=== PATIENT | female | born 1980 | race Caucasian/White ===

== ENCOUNTER 2017-11-24 20:44 | Emergency (ER) | payer OTHER, MEDICAID, SELFPAY ==
[2017-11-24 20:58] VITALS: BP 146/100; PULSE 84; RESP 20; TEMP 36.2; O2SAT 97; BMI 30.2
--- NOTE | 2017-11-24 21:05 | PC.NURSE ---
Pt encouraged to call for needs and / or change in condition.
[2017-11-24 23:24] VITALS: BP 102/59; PULSE 64; RESP 21; O2SAT 98
--- NOTE | 2017-11-24 23:26 | ED.UPPEXIN ---
HPI - Extremity Injury (Upper) General Chief Complaint: Chest Pain Stated Complaint: CHEST PAIN, DIFFICULTY BREATHING, ARM PAIN Time Seen by Provider: 11/24/17 23:07 Source: patient and RN notes reviewed Limitations: no limitations History of Present Illness HPI narrative: Patient is a 36-year-old female who presents with left arm pain. She says it has been ongoing for a year. She said she had ultrasound on it she denies any injury. Nobody can figure out what it is and she would like to know what is happening with her arm. It is not any worse today. She sometimes has chest pain and sometimes shortness of breath but does not have any now. Her arm hurts when she moves it. She has no numbness or tingling in her fingers. MD complaint: injury to: arm Other injuries: none Related Data Home Medications Medication Instructions Recorded Confirmed fluoxetine 20 mg PO QDAY #0 10/06/12 Previous Rx's Medication Instructions Recorded hydrocodone-acetaminophen 0 tab PO Q6HP PRN #15 tab 02/27/16 doxycycline hyclate 100 mg PO Q12H #20 cap 04/27/16 Review of Systems Review of Systems All systems reviewed & are unremarkable except as noted in HPI and below Musculoskeletal Reports as per HPI, Denies atrophy, Denies deformity, Denies muscle weakness and Denies numbness Neurologic Denies numbness [facility] Social History Smoking Status: Current every day smoker Exam Narrative Exam Narrative: GENERAL: Well-appearing, well-nourished and in no acute distress. HEENT: Head atraumatic,EOMI, pupils reactive CARDIOVASCULAR: Regular rate and rhythm without murmurs, rubs or gallops. RESPIRATORY: Breath sounds equal bilaterally, no wheezes rales or rhonchi. ABDOMEN: Soft, nontender. Normoactive bowel sounds all 4 quadrants. No guarding or rebound. EXTREMITIES: Normal range of motion, no clubbing or edema. Neurovascularly intact Left upper extremity no gross bony deformities no erythema no swelling no rashes. Neurovascularly intact NEUROLOGICAL: Alert and oriented x4.Normal gait and speech. Cranial nerves II through XII grossly intact. SKIN: Warm, dry, no laceration, no petechiae, no rashes or lesions. MDM - Extremity Injury (Upper) [facility] Narrative Medical decision making narrative: She has had chronic ongoing left arm pain at no evidence of any acute problems. Has no sign of infection deformity or swelling. Differential Diagnosis Differential diagnosis: Likely Colles' fracture ECG Data Attestation: I personally reviewed and interpreted this ECG as follows: Interpretation: Normal sinus rhythm rate [address] changes normal intervals Discharge Plan Departure Patient Disposition: Home, Self-Care Clinical Impression: Arm pain, left Discharge Date/Time: 11/24/17 23:40 Interventions: ED Discharge Assessment Last Done: 11/24/17 23:49 Instructions: DI for Arm Pain Activity Restrictions/Additional Instructions: *You have been diagnosed with left arm pain chronic *What to do: May require MRI or other testing outpatient *Take medications as directed -ibuprofen 600 mg every 6 hr if needed for pain *Follow up with your primary care provider in 2-3 days *Return to ER if you should have any new, worsening or concerning symptoms Prescriptions: No Action fluoxetine 20 MG capsule 20 mg PO QDAY Qty: 0 RF: 0 hydrocodone-acetaminophen 5 MG/325 MG tablet PO Q6HP PRNQty: 15 RF: 0 doxycycline hyclate 100 MG capsule 100 mg PO Q12H Qty: 20 RF: 0 Referrals: Sil Espinosa MD [Primary Care Provider] -
[2017-11-24] MEDS: IBUPROFEN 400 MG TABLET 800 MG PO (23:30)
--- NOTE | 2017-11-24 23:30 | ED_ITS ---
HPI - Extremity Injury (Upper) General Chief Complaint: Chest Pain Stated Complaint: CHEST PAIN, DIFFICULTY BREATHING, ARM PAIN Time Seen by Provider: 11/24/17 23:07 Source: patient and RN notes reviewed Limitations: no limitations History of Present Illness HPI narrative: Patient is a 36-year-old female who presents with left arm pain. She says it has been ongoing for a year. She said she had ultrasound on it she denies any injury. Nobody can figure out what it is and she would like to know what is happening with her arm. It is not any worse today. She sometimes has chest pain and sometimes shortness of breath but does not have any now. Her arm hurts when she moves it. She has no numbness or tingling in her fingers. MD complaint: injury to: arm Other injuries: none Related Data Home Medications Medication Instructions Recorded Confirmed fluoxetine 20 mg PO QDAY #0 10/06/12 Previous Rx's Medication Instructions Recorded hydrocodone-acetaminophen 0 tab PO Q6HP PRN #15 tab 02/27/16 doxycycline hyclate 100 mg PO Q12H #20 cap 04/27/16 Review of Systems Review of Systems All systems reviewed & are unremarkable except as noted in HPI and below Musculoskeletal Reports as per HPI, Denies atrophy, Denies deformity, Denies muscle weakness and Denies numbness Neurologic Denies numbness [facility] Social History Smoking Status: Current every day smoker Exam Narrative Exam Narrative: GENERAL: Well-appearing, well-nourished and in no acute distress. HEENT: Head atraumatic,EOMI, pupils reactive CARDIOVASCULAR: Regular rate and rhythm without murmurs, rubs or gallops. RESPIRATORY: Breath sounds equal bilaterally, no wheezes rales or rhonchi. ABDOMEN: Soft, nontender. Normoactive bowel sounds all 4 quadrants. No guarding or rebound. EXTREMITIES: Normal range of motion, no clubbing or edema. Neurovascularly intact Left upper extremity no gross bony deformities no erythema no swelling no rashes. Neurovascularly intact NEUROLOGICAL: Alert and oriented x4.Normal gait and speech. Cranial nerves II through XII grossly intact. SKIN: Warm, dry, no laceration, no petechiae, no rashes or lesions. MDM - Extremity Injury (Upper) [facility] Narrative Medical decision making narrative: She has had chronic ongoing left arm pain at no evidence of any acute problems. Has no sign of infection deformity or swelling. Differential Diagnosis Differential diagnosis: Likely Colles' fracture ECG Data Attestation: I personally reviewed and interpreted this ECG as follows: Interpretation: Normal sinus rhythm rate [address] changes normal intervals Discharge Plan Departure Patient Disposition: Home, Self-Care Clinical Impression: Arm pain, left Discharge Date/Time: 11/24/17 23:40 Interventions: ED Discharge Assessment Last Done: 11/24/17 23:49 Instructions: DI for Arm Pain Activity Restrictions/Additional Instructions: *You have been diagnosed with left arm pain chronic *What to do: May require MRI or other testing outpatient *Take medications as directed -ibuprofen 600 mg every 6 hr if needed for pain *Follow up with your primary care provider in 2-3 days *Return to ER if you should have any new, worsening or concerning symptoms Prescriptions: No Action fluoxetine 20 MG capsule 20 mg PO QDAY Qty: 0 RF: 0 hydrocodone-acetaminophen 5 MG/325 MG tablet PO Q6HP PRNQty: 15 RF: 0 doxycycline hyclate 100 MG capsule 100 mg PO Q12H Qty: 20 RF: 0 Referrals: Sil Espinosa MD [Primary Care Provider] -
== END 2017-11-24 23:40 | disposition home or self-care (01) ==
PROVIDERS: Emergency Provider Emergency Medicine; PCP Internal Medicine
DX: M79.602 Pain in left arm (principal)
CPT/HCPCS: 93005; 99282; 99283

== ENCOUNTER 2018-12-04 09:41 | Emergency (ER) | payer OTHER, MEDICAID, SELFPAY ==
[2018-12-04 09:41] VITALS: BP 128/80; PULSE 88; RESP 18; TEMP 36.7; O2SAT 99
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
--- NOTE | 2018-12-04 10:11 | DI.RAD.S_ITS ---
PROCEDURE: XR CHEST 2V INDICATIONS: URI, coughing up small clots of blood. + smoker TECHNIQUE: 2 views of the chest were acquired. COMPARISON: [facility], , CHEST 1 VIEW, 10/06/2012, 17:51. FINDINGS: Surgical changes and devices: None. Lungs and pleura: No acute consolidation. Scattered subsegmental atelectasis and/or scarring. No pleural effusions or pneumothorax. Mediastinum: Mediastinal contours are normal. Heart size is normal. Bones and chest wall: No suspicious bony abnormalities. Soft tissues appear unremarkable. IMPRESSION: No acute disease Dictated by: Ricardo Petersen M.D. on 12/04/2018 at 10:26 Approved by: Ricardo Petersen M.D. on 12/04/2018 at 10:27
[2018-12-04 10:45] VITALS: BP 146/82; PULSE 78; RESP 18; O2SAT 96
== END 2018-12-04 10:46 | disposition home or self-care (01) ==
LOC: ED 10:40
PROVIDERS: Emergency Provider Emergency Medicine; PCP Internal Medicine
DX: J40 Bronchitis, not specified as acute or chronic (principal)
CPT/HCPCS: 71046; 99282; 99283

== ENCOUNTER → 2019-01-15 17:00 | Outpatient (CLI) | payer OTHER, MEDICAID, SELFPAY ==
--- NOTE | 2019-01-26 08:45 | PM.PFT.1 ---
Pulmonary Function Test Referral & Results Date Patient Seen: 01/15/19 Requesting provider: Sil Espinosa Results: The spirometry demonstrates an FVC of 3.29 L which is 88% of predicted. The FEV1 was measured at 2.59 L which is 84% of predicted. The FEV1/FVC ratio was 79 which is 94% of predicted. Following the administration of bronchodilator there was no appreciable change. Lung volumes show an SVC of 2.88 L which is 82% of predicted. The diffusing capacity was measured at 18.12 which is 74% of predicted. No hemoglobin value was provided, so no correction for potential anemia could be made, if appropriate. The maximum voluntary ventilation was reduced Interpretation: This study demonstrates perhaps very mild obstructive lung disease based on minimal reduction in FEV1 without evidence of benefit following bronchodilator administration There is also minimal reduction lung volumes suggesting minimal restrictive lung disease There is also mild reduction in diffusing capacity suggesting element disease the capillary alveolar level
== END ==
PROVIDERS: PCP Internal Medicine; Visit Provider Internal Medicine
DX: J45.40 Moderate persistent asthma, uncomplicated (principal)
CPT/HCPCS: 94060; 94726; 94729

== ENCOUNTER 2019-01-16 17:05 | Emergency (ER) | payer OTHER, MEDICAID, SELFPAY ==
[2019-01-16 17:17] VITALS: BP 118/81; PULSE 74; RESP 18; TEMP 37.6; O2SAT 98; BMI 31.8
--- NOTE | 2019-01-16 17:41 | PC.NURSE ---
breath sound clear thru out.
--- NOTE | 2019-01-16 18:19 | DI.RAD.S_ITS ---
PROCEDURE: XR CHEST 2V INDICATIONS: cough x months TECHNIQUE: 2 views of the chest were acquired. COMPARISON: [facility], [place], XR CHEST 2V, 12/04/2018, 10:12. FINDINGS: Surgical changes and devices: None. Lungs and pleura: Lungs are clear. No pleural effusions or pneumothorax. Mediastinum: Mediastinal contours are normal. Heart size is normal. Bones and chest wall: No suspicious bony abnormalities. Soft tissues appear unremarkable. IMPRESSION: No evidence acute pulmonary process. The Dictated by: Henry Aocsta M.D. on 01/16/2019 at 19:28 Approved by: Henry Acosta M.D. on 01/16/2019 at 19:29
[2019-01-16 18:26] VITALS: BP 94/45; PULSE 82; RESP 20; TEMP 36.9; O2SAT 97
--- NOTE | 2019-01-16 19:45 | ED.URI ---
HPI - URI/Sore Throat <FIOR Simmons - Last Filed: 01/16/19 19:52> General Chief Complaint: Upper Respiratory Symptoms Stated Complaint: cough, breathing issues Time Seen by Provider: 01/16/19 18:17 Source: patient Mode of arrival: ambulatory Limitations: no limitations History of Present Illness HPI Narrative: The patient is a 38-year-old female active smoker presents with a chief complaint of a productive cough for the past 3 weeks. She had pulmonary function test yesterday and has plans to follow up with a senior radiation protection technician. She denies any fevers nausea vomiting or diarrhea. She states she has been wheezing and using inhaler. She is concerned as she has been exposed to some black mold. She states she was treated with steroids, but has not had antibiotics at this point time. She denies any sinus pain or pressure, sore throat or ear pain. She states that she has been using spjp-lsh-[id number] cough medicine without relief. She continues to smoke. Related Data Home Medications Medication Instructions Recorded Confirmed fluoxetine 20 mg capsule 20 mg PO DAILY 12/06/18 12/06/18 Previous Rx's Medication Instructions Recorded prednisone 50 mg PO DAILY #5 tab 12/04/18 clobetasol 0.05 % topical ointment 1 applictn TOP BEDTIME #30 gram 12/06/18 medroxyprogesterone 10 mg tablet 10 mg PO .COMPLEX #30 tab 12/06/18 doxycycline hyclate 100 mg PO BID #20 tab 01/16/19 Allergies Allergy/AdvReac Type Severity Reaction Status Date / Time No Known Drug Allergies Allergy Verified 01/16/19 17:39 Review of Systems <FIOR Simmons - Last Filed: 01/16/19 19:52> Constitutional Denies body ache(s), Denies chills, Denies fatigue, Denies fever(s) and Denies frequent falls Eyes Reports system reviewed and no additional complaints, except as docu ENT Ears, Nose, Mouth, and Throat: Reports system reviewed and no additional complaints, except as docu Cardiovascular Reports system reviewed and no additional complaints, except as docu Respiratory Reports as per HPI Gastrointestinal Gastrointestinal: Reports system reviewed and no additional complaints, except as docu Musculoskeletal Reports system reviewed and no additional complaints, except as docu Integumentary/Breasts Reports system reviewed and no additional complaints, except as docu Neurologic Reports system reviewed and no additional complaints, except as docu and Denies frequent falls Psychiatric Reports system reviewed and no additional complaints, except as docu Endocrine Reports system reviewed and no additional complaints, except as docu and Denies fatigue PFSH <FIOR Simmons - Last Filed: 01/16/19 19:52> Medical History Smoker (Acute) PTSD (post-traumatic stress disorder) (Chronic) H/O nephrolithotomy with removal of calculi (Resolved) History of sterilization procedure (Inactive) Surgical History Hx of cholecystectomy (Inactive) Social History (Updated 12/04/18 @ 10:32 by Claribel Jennings DO) Smoking Status: Current every day smoker alcohol intake: former substance use type: marijuana Social History Smoking Status: Current every day smoker alcohol intake: former substance use type: marijuana Exam <FIOR Simmons - Last Filed: 01/16/19 19:52> Narrative Exam Narrative: GENERAL: This is a well-nourished, well-developed patient, no acute distress wearing a mask and coughing HEAD: Atraumatic. Normocephalic. No temporal or scalp tenderness. EYES: Pupils equal round and reactive. Extraocular motions intact. No scleral icterus. No injection or drainage. ENT: Nose without bleeding, purulent drainage or septal hematoma. Throat without erythema, tonsillar hypertrophy or exudate. Uvula midline. Airway patent. NECK: Trachea midline. No JVD or lymphadenopathy. Supple, nontender, no meningeal signs. CARDIOVASCULAR: Regular rate and rhythm RESPIRATORY: Coarse bilaterally to auscultation, with good breath sounds. Postoperative productive cough on exam. Diffuse expiratory wheezes bilaterally. GASTROINTESTINAL: Abdomen soft, non-tender, nondistended. No hepato-splenomegaly, or palpable masses. No guarding. Active bowel sounds all 4 quadrants. EXTREMITIES: No clubbing, cyanosis, or edema. No joint tenderness, effusion, or edema noted. BACK: Nontender without deformity or crepitance. No flank tenderness. NEURO: AOx3. SKIN: No rash or erythema. Initial Vital Signs Initial Vital Signs: Vital Signs Temperature 99.7 F H 01/16/19 17:17 Pulse Rate 74 01/16/19 17:17 Respiratory Rate 18 01/16/19 17:17 Blood Pressure 118/81 01/16/19 17:17 Pulse Oximetry 98 01/16/19 17:17 <Karthik Iyer DO - Last Filed: 01/17/19 02:32> Initial Vital Signs Initial Vital Signs: Vital Signs Temperature 99.7 F H 01/16/19 17:17 Pulse Rate 74 01/16/19 17:17 Respiratory Rate 18 01/16/19 17:17 Blood Pressure 118/81 01/16/19 17:17 Pulse Oximetry 98 01/16/19 17:17 Course <FIOR Simmons - Last Filed: 01/16/19 19:52> Orders Ordered: ED Orders 01/16/19 18:19 XR chest 2V Stat RT Consult Eval and Treat Now 01/16/19 19:55 Sputum Culture Stat Vital Signs - 8 hr 01/16/19 20:01 Pulse Rate 59 L Respiratory Rate 18 Blood Pressure 107/69 Pulse Oximetry 98 <Karthik Iyer DO - Last Filed: 01/17/19 02:32> Orders Ordered: ED Orders 01/16/19 18:19 XR chest 2V Stat RT Consult Eval and Treat Now 01/16/19 19:55 Sputum Culture Stat Vital Signs - 8 hr 01/16/19 20:01 Pulse Rate 59 L Respiratory Rate 18 Blood Pressure 107/69 Pulse Oximetry 98 MDM - URI/Sore Throat <FIOR Simmons - Last Filed: 01/16/19 19:52> Imaging Data Chest x-ray: Radiologist's impression: [address] [address] XRay Report Signed Patient: Katja Best#: [id number] : 1980Acct:[id number] Age/Sex: 38 / FDate of Service: 01/16/19 Loc: ED Accession Number: [id number] Procedure: XR chest 2V Ordering Provider: Claribel Mccarthy PROCEDURE: XR CHEST 2V INDICATIONS: cough x months TECHNIQUE: 2 views of the chest were acquired. COMPARISON: [facility], CR, XR CHEST 2V, 12/04/2018, 10:12. FINDINGS: Surgical changes and devices: None. Lungs and pleura: Lungs are clear. No pleural effusions or pneumothorax. Mediastinum: Mediastinal contours are normal. Heart size is normal. Bones and chest wall: No suspicious bony abnormalities. Soft tissues appear unremarkable. IMPRESSION: No evidence acute pulmonary process. The Dictated by: Henry Acosta M.D. on 01/16/2019 at 19:28 Approved by: Henry Acosta M.D. on 01/16/2019 at 19:29 [facility] Narrative Medical decision making narrative: The patient is a 38-year-old female presents with a 3 week productive cough. She is an active smoker was exposed to some mold. We did obtain a sputum culture. She declined respiratory therapist evaluation breathing treatment. Her chest x-ray shows no acute process. However given her increased duration of symptoms I will treat her for lower respiratory infection with doxycycline. I discussed at length use of sunscreen. Discussed follow-up with PCP as well as senior radiation protection technician as previously arranged. Encouraged patient to continue using brer-wje-dhxbzqd medications as needed for cough as well as her inhaler. Patient was hemodynamically stable throughout her stay in the ER. No questions or concerns upon discharge. Discharge Plan Departure Patient Disposition: Home Clinical Impression: Acute lower respiratory infection Discharge Date/Time: 01/16/19 20:02 Interventions: ED Discharge Assessment Last Done: 01/16/19 20:01 Instructions: DI for Acute Bronchitis Activity Restrictions/Additional Instructions: Given the duration of her symptoms, we have elected to treat you for lower lung infection with doxycycline. Please continue use wjes-isv-wsrdawy medications as needed for cough. The sputum culture should be back in 48-72 hours. Please follow up with primary care provider as well as her senior radiation protection technician as previously scheduled. Come back to the emergency department for any severe respiratory distress, concern of heart attack or stroke. Prescriptions: New doxycycline hyclate 100 mg tablet 100 mg PO BID Qty: 20 RF: 0 No Action fluoxetine 20 mg capsule 20 mg PO DAILY RF: 0 medroxyprogesterone 10 mg tablet 10 mg PO .COMPLEX Qty: 30 RF: 1 clobetasol 0.05 % ointment 1 applictn TOP BEDTIME Qty: 30 RF: 0 prednisone 50 mg tablet 50 mg PO DAILY Qty: 5 RF: 0 Referrals: Sil Espinosa MD [Primary Care Provider] - <Karthik Iyer DO - Last Filed: 01/17/19 02:32> Cosign ED Attending Car Attestation: I was immediately available in the department for consultation. Documentation has been reviewed. I agree with assessment and plan.
--- NOTE | 2019-01-16 19:50 | ED_ITS ---
HPI - URI/Sore Throat <FIOR Simmons - Last Filed: 01/16/19 19:52> General Chief Complaint: Upper Respiratory Symptoms Stated Complaint: cough, breathing issues Time Seen by Provider: 01/16/19 18:17 Source: patient Mode of arrival: ambulatory Limitations: no limitations History of Present Illness HPI Narrative: The patient is a 38-year-old female active smoker presents with a chief complaint of a productive cough for the past 3 weeks. She had pulmonary function test yesterday and has plans to follow up with a dog or animal sitter. She denies any fevers nausea vomiting or diarrhea. She states she has been wheezing and using inhaler. She is concerned as she has been exposed to some black mold. She states she was treated with steroids, but has not had antibiotics at this point time. She denies any sinus pain or pressure, sore throat or ear pain. She states that she has been using hezc-dqt-dcqijis cough medicine without relief. She continues to smoke. Related Data Home Medications Medication Instructions Recorded Confirmed fluoxetine 20 mg capsule 20 mg PO DAILY 12/06/18 12/06/18 Previous Rx's Medication Instructions Recorded prednisone 50 mg PO DAILY #5 tab 12/04/18 clobetasol 0.05 % topical ointment 1 applictn TOP BEDTIME #30 gram 12/06/18 medroxyprogesterone 10 mg tablet 10 mg PO .COMPLEX #30 tab 12/06/18 doxycycline hyclate 100 mg PO BID #20 tab 01/16/19 Allergies Allergy/AdvReac Type Severity Reaction Status Date / Time No Known Drug Allergies Allergy Verified 01/16/19 17:39 Review of Systems <FIOR Simmons - Last Filed: 01/16/19 19:52> Constitutional Denies body ache(s), Denies chills, Denies fatigue, Denies fever(s) and Denies frequent falls Eyes Reports system reviewed and no additional complaints, except as docu ENT Ears, Nose, Mouth, and Throat: Reports system reviewed and no additional complaints, except as docu Cardiovascular Reports system reviewed and no additional complaints, except as docu Respiratory Reports as per HPI Gastrointestinal Gastrointestinal: Reports system reviewed and no additional complaints, except as docu Musculoskeletal Reports system reviewed and no additional complaints, except as docu Integumentary/Breasts Reports system reviewed and no additional complaints, except as docu Neurologic Reports system reviewed and no additional complaints, except as docu and Denies frequent falls Psychiatric Reports system reviewed and no additional complaints, except as docu Endocrine Reports system reviewed and no additional complaints, except as docu and Denies fatigue PFSH <FIOR Simmons - Last Filed: 01/16/19 19:52> Medical History Smoker (Acute) PTSD (post-traumatic stress disorder) (Chronic) H/O nephrolithotomy with removal of calculi (Resolved) History of sterilization procedure (Inactive) Surgical History Hx of cholecystectomy (Inactive) Social History (Updated 12/04/18 @ 10:32 by Claribel Jennings DO) Smoking Status: Current every day smoker alcohol intake: former substance use type: marijuana Social History Smoking Status: Current every day smoker alcohol intake: former substance use type: marijuana Exam <FIOR Simmons - Last Filed: 01/16/19 19:52> Narrative Exam Narrative: GENERAL: This is a well-nourished, well-developed patient, no acute distress wearing a mask and coughing HEAD: Atraumatic. Normocephalic. No temporal or scalp tenderness. EYES: Pupils equal round and reactive. Extraocular motions intact. No scleral icterus. No injection or drainage. ENT: Nose without bleeding, purulent drainage or septal hematoma. Throat without erythema, tonsillar hypertrophy or exudate. Uvula midline. Airway patent. NECK: Trachea midline. No JVD or lymphadenopathy. Supple, nontender, no meningeal signs. CARDIOVASCULAR: Regular rate and rhythm RESPIRATORY: Coarse bilaterally to auscultation, with good breath sounds. Postoperative productive cough on exam. Diffuse expiratory wheezes bilaterally. GASTROINTESTINAL: Abdomen soft, non-tender, nondistended. No hepato- splenomegaly, or palpable masses. No guarding. Active bowel sounds all 4 quadrants. EXTREMITIES: No clubbing, cyanosis, or edema. No joint tenderness, effusion, or edema noted. BACK: Nontender without deformity or crepitance. No flank tenderness. NEURO: AOx3. SKIN: No rash or erythema. Initial Vital Signs Initial Vital Signs: Vital Signs Temperature 99.7 F H 01/16/19 17:17 Pulse Rate 74 01/16/19 17:17 Respiratory Rate 18 01/16/19 17:17 Blood Pressure 118/81 01/16/19 17:17 Pulse Oximetry 98 01/16/19 17:17 <Karthik Iyer DO - Last Filed: 01/17/19 02:32> Initial Vital Signs Initial Vital Signs: Vital Signs Temperature 99.7 F H 01/16/19 17:17 Pulse Rate 74 01/16/19 17:17 Respiratory Rate 18 01/16/19 17:17 Blood Pressure 118/81 01/16/19 17:17 Pulse Oximetry 98 01/16/19 17:17 Course <FIOR Simmons - Last Filed: 01/16/19 19:52> Orders Ordered: ED Orders 01/16/19 18:19 XR chest 2V Stat RT Consult Eval and Treat Now 01/16/19 19:55 Sputum Culture Stat Vital Signs - 8 hr 01/16/19 20:01 Pulse Rate 59 L Respiratory Rate 18 Blood Pressure 107/69 Pulse Oximetry 98 <Karthik Iyer DO - Last Filed: 01/17/19 02:32> Orders Ordered: ED Orders 01/16/19 18:19 XR chest 2V Stat RT Consult Eval and Treat Now 01/16/19 19:55 Sputum Culture Stat Vital Signs - 8 hr 01/16/19 20:01 Pulse Rate 59 L Respiratory Rate 18 Blood Pressure 107/69 Pulse Oximetry 98 MDM - URI/Sore Throat <FIOR Simmons - Last Filed: 01/16/19 19:52> Imaging Data Chest x-ray: Radiologist's impression: [address] [address] XRay Report Signed Patient: Katja Best#: [id number] : 1980Acct:[id number] Age/Sex: 38 / FDate of Service: 01/16/19 Loc: ED Accession Number: [id number] Procedure: XR chest 2V Ordering Provider: Claribel Mccarthy PROCEDURE: XR CHEST 2V INDICATIONS: cough x months TECHNIQUE: 2 views of the chest were acquired. COMPARISON: [facility], CR, XR CHEST 2V, 12/04/2018, 10:12. FINDINGS: Surgical changes and devices: None. Lungs and pleura: Lungs are clear. No pleural effusions or pneumothorax. Mediastinum: Mediastinal contours are normal. Heart size is normal. Bones and chest wall: No suspicious bony abnormalities. Soft tissues appear unremarkable. IMPRESSION: No evidence acute pulmonary process. The Dictated by: Henry Acosta M.D. on 01/16/2019 at 19:28 Approved by: Henry Acosta M.D. on 01/16/2019 at 19:29 [facility] Narrative Medical decision making narrative: The patient is a 38-year-old female presents with a 3 week productive cough. She is an active smoker was exposed to some mold. We did obtain a sputum culture. She declined respiratory therapist evaluation breathing treatment. Her chest x-ray shows no acute process. However given her increased duration of symptoms I will treat her for lower respiratory infection with doxycycline. I discussed at length use of sunscreen. Discussed follow-up with PCP as well as dog or animal sitter as previously arranged. Encouraged patient to continue using tcwy-hgb-aigpvpg medications as needed for cough as well as her inhaler. Patient was hemodynamically stable throughout her stay in the ER. No questions or concerns upon discharge. Discharge Plan Departure Patient Disposition: Home Clinical Impression: Acute lower respiratory infection Discharge Date/Time: 01/16/19 20:02 Interventions: ED Discharge Assessment Last Done: 01/16/19 20:01 Instructions: DI for Acute Bronchitis Activity Restrictions/Additional Instructions: Given the duration of her symptoms, we have elected to treat you for lower lung infection with doxycycline. Please continue use mwjf-wfv-lerecgg medications as needed for cough. The sputum culture should be back in 48-72 hours. Please follow up with primary care provider as well as her dog or animal sitter as previously scheduled. Come back to the emergency department for any severe respiratory distress, concern of heart attack or stroke. Prescriptions: New doxycycline hyclate 100 mg tablet 100 mg PO BID Qty: 20 RF: 0 No Action fluoxetine 20 mg capsule 20 mg PO DAILY RF: 0 medroxyprogesterone 10 mg tablet 10 mg PO .COMPLEX Qty: 30 RF: 1 clobetasol 0.05 % ointment 1 applictn TOP BEDTIME Qty: 30 RF: 0 prednisone 50 mg tablet 50 mg PO DAILY Qty: 5 RF: 0 Referrals: Sil Espinosa MD [Primary Care Provider] - <Karthik Iyer DO - Last Filed: 01/17/19 02:32> Cosign ED Attending Car Attestation: I was immediately available in the department for consultation. Documentation has been reviewed. I agree with assessment and plan.
[2019-01-16 20:01] VITALS: BP 107/69; PULSE 59; RESP 18; O2SAT 98
== END 2019-01-16 20:02 | disposition home or self-care (01) ==
PROVIDERS: Emergency Provider Nurse Practitioner Family; PCP Internal Medicine
DX: J22 Unspecified acute lower respiratory infection (principal)
CPT/HCPCS: 71046; 87070; 87205; 99282; 99283

== ENCOUNTER → 2019-06-24 08:34 | Outpatient (CLI) | payer OTHER, MEDICAID, SELFPAY ==
--- NOTE | 2019-06-24 | DI.MRI.S_ITS ---
PROCEDURE: MR HEAD/BRAIN WO CON INDICATIONS: SYNCOPE AND COLLAPSE TECHNIQUE: Noncontrast axial T1 spin echo, axial T2 fast spin echo, sagittal and axial FLAIR, coronal T2 fast spin echo, axial gradient echo, axial diffusion and ADC through the brain. COMPARISON: None. FINDINGS: Image quality: Limited by patient motion artifact. CSF Spaces: Basal cisterns are patent. No extra-axial fluid collections. Ventricles are normal in size and shape. Brain: No intracranial masses or hemorrhage. Deluca/white matter interface is normal. Brainstem appears normal. Diffusion-weighted images demonstrate no acute ischemic insult. No chronic ischemic insults. No abnormal GRE weighted artifact identified in the brain parenchyma. Normal intravascular flow voids are present. Skull and face: Calvarium has normal marrow signal. Orbits appear normal. Sinuses: Sinuses and mastoids are clear. IMPRESSION: 1. No intracranial disease process. 2. No areas of acute or chronic infarction. 3. No abnormal intracranial mass or mass effect. 4. No abnormal intracranial signal. Dictated by: Hanna Wolfe MD, PhD on 06/24/2019 at 18:10 Approved by: Hanna Wolfe MD, PhD on 06/24/2019 at 18:12
== END ==
PROVIDERS: PCP Internal Medicine; Visit Provider Specialist
DX: R55 Syncope and collapse (principal); R44.2 Other hallucinations; S06.9X9S Unspecified intracranial injury with loss of consciousness of unspecified duration, sequela
CPT/HCPCS: 70551

== ENCOUNTER 2019-06-26 09:00 | Outpatient (RCR) | payer OTHER, MEDICAID, SELFPAY ==
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
--- NOTE | 2019-06-05 18:16 | PT.OPPOC ---
Current Diagnoses Pain in right leg (06/05/19) Other symptoms and signs involving the musculoskeletal system (06/05/19) Visit Care Team Role Provider Type Sil Espinosa MD Attending Provider Physician Primary Care Provider Specialty: Internal Medicine Address: [address] [place] [address], [id number] Email: [email or web address] Plan Of Care PT-OP-T Assessment and Plan Start: 04/16/19 09:53 Freq: Status: Active Protocol: Document 06/05/19 09:48 [facility] (Rec: 06/05/19 10:35 [facility] [id number]) Physical Therapy Assessment Goals Five Impairment Alva lacks a home exercise program for knee strength and stability Short Term Goal (STG) Alva is educated on strengthening exercises she can do at home for her knee EXCELLENT PROGRESS, CONTINUING TO UPDATE WITH PROGRESS STG Duration 4-8 weeks Four Impairment inablility to perform a standing squat English As A Second Language Teacher Goal (LTG) Alva is demonstrating improved knee stability and is able to perform a standing squat GOAL MET LTG Duration 8 weeks Three Impairment extreme weakness in the right knee with 2/5 MMT Half-Way Goal (LTG) Improve knee strength to 3/5 MMT or better for improved knee stability GOAL MET LTG Duration 8 weeks Two Impairment knee pain rated 5/10 Half-Way Goal (LTG) pt is given exercises to help stabilize her knee and reduce her pain levels by 1-2 points SOME PROGRESS LTG Duration 8 weeks One Impairment c/o right knee instability and the knee giving out on her buckling English As A Second Language Teacher Goal (LTG) Improve stability to the right knee to improve stability and decrease fall risk. Pt is able to have 2-3 weeks without complaints of her knee buckling STILL PRESENTING WITH INTERMITTENT KNEE GIVING OUT DUE TO JOINT INSTABILITY LTG Duration 8 weeks Assessment Summary Assessment Katja is making good progress with LE strengthening in PT. She is showing improvements of strength and walking distance . She is still in pain but is able to tolerate more activity now. Katja has 4 more visits scheduled. Focused on her home program today as she wont have access to gym equipment once discharged. Physical Therapy Plan Frequency and Duration Frequency of Treatment 2x/Week Duration of Treatment 8 Plan of Care Start Date 06/05/19 Plan of Care End Date 07/14/19 Therapeutic Interventions Therapeutic Interventions Balance Training,Gait Training ,Home Exercise Program,Manual Therapy,Neuromuscular Re- education,Self-Care/Home Management,Soft Tissue Mobilization,Therapeutic Exercises Next Visit Focus/Plan Next Note Type Treatment Note Next Visit Plan trial of STM over the right calf next visit. Pt has been working on desentization and feels this is helping. Plan of Care Dates Plan of Care Start Date 06/05/19 Plan of Care End Date 07/14/19
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
== END 2019-07-13 11:49 ==
LOC: PHYS 09:00
PROVIDERS: PCP Internal Medicine; Visit Provider Internal Medicine
DX: R29.898 Other symptoms and signs involving the musculoskeletal system (principal); M79.604 Pain in right leg
CPT/HCPCS: 97014; 97110; 97116; 97140; 97161; G0283

== ENCOUNTER 2019-08-12 08:24 | Emergency (ER) | payer OTHER, MEDICAID, SELFPAY ==
[2019-08-12 08:28] VITALS: BP 126/94; PULSE 58; RESP 20; TEMP 36.5; O2SAT 98
--- NOTE | 2019-08-12 08:34 | ED_ITS ---
HPI - Dental/Oral General Chief complaint: Dental/Oral Stated complaint: rt side tooth pain Time Seen by Provider: 08/12/19 08:30 Source: patient Mode of arrival: Ambulatory Limitations: no limitations History of Present Illness HPI Narrative: Patient is a 38-year-old female who complains of dental pain at tooth number 6. She says it has been progressively getting worse over the last few weeks. She has had dental issues ongoing for most of her life she previously had all of her back teeth removed in 2011 at [facility] she has not been back since. She denies any facial swelling fever or chills. He has be en taking Aleve which seems to help better than ibuprofen. Teeth map: 1. Pain and no abscess mike in color receding gum line Onset (ago): week(s) Duration: constant Severity: moderate Relieving factors: NSAIDs Exacerbating factors: nothing Context: poor dental care Related Data Home Medications Medication Instructions Recorded Confirmed fluoxetine 20 mg capsule 20 mg PO DAILY 12/06/18 07/17/19 albuterol sulfate 90 mcg/actuation 1 inhalation INHALATION Q4-6H PRN 06/15/19 07/17/19 breath activated powder inhaler Previous Rx's Medication Instructions Recorded clobetasol 0.05 % topical ointment 1 applictn TOP BEDTIME #30 gram 12/06/18 medroxyprogesterone 10 mg tablet 10 mg PO DAILY #10 tab 06/15/19 amoxicillin 500 mg PO BID #14 cap 08/12/19 naproxen 500 mg PO BID PRN #30 tab 08/12/19 Allergies Allergy/AdvReac Type Severity Reaction Status Date / Time No Known Drug Allergies Allergy Verified 07/17/19 16:14 Review of Systems Review of Systems Narrative: GENERAL: Denies chills,fever HEENT: See HPI RESPIRATORY: Denies dyspnea, cough, wheezing CARDIOVASCULAR: Denies chest pain, palpitations GASTROINTESTINAL: Denies nausea, vomiting MUSCULOSKELETAL: Denies extremity pain, injury SKIN: No rash, no laceration, no pruritus NEUROLOGIC: Denies weakness, dizziness, headache, numbness 8 point review of systems is negative except for those stated above and HPI Patient History Medical History Anxiety (Chronic ~2012) Carpal tunnel syndrome (Chronic ~2000) Chicken pox (Resolved ~1987) Depression (Chronic ~2012) Headache (Chronic ~2012) Hearing loss (Chronic) Heavy menstrual period (Chronic ~2018) History of bipolar disorder (Chronic ~2012) History of sterilization procedure (Resolved) Irregular menstrual cycle (Chronic ~1987) Migraines (Chronic ~2012) Painful menstrual periods (Chronic ~2018) PTSD (post-traumatic stress disorder) (Chronic ~2012) Restless leg syndrome (Chronic ~2018) Scoliosis (Chronic ~1997) Seizure (Resolved ~1981) Smoker (Chronic) Surgical History Anesthesia (Resolved) H/O nephrolithotomy with removal of calculi (Resolved) History of ankle surgery (Resolved ~2012) Hx of cholecystectomy (Resolved ~2016) Family History Father Colon cancer Brother Mental health problem Grandmother Diabetes mellitus Mental health problem Dementia Social History Smoking Status: Current every day smoker alcohol intake: former substance use type: marijuana Smoking Status: Current every day smoker alcohol intake frequency: a few times a week Substance Use Type: marijuana Exam Initial Vital Signs Initial Vital Signs: Vital Signs Temperature 97.7 F 08/12/19 08:28 Pulse Rate 58 L 08/12/19 08:28 Respiratory Rate 20 08/12/19 08:28 Blood Pressure 126/94 H 08/12/19 08:28 Pulse Oximetry 98 08/12/19 08:28 GENERAL: Well-appearing, well-nourished and in no acute distress. CARDIOVASCULAR: peripheral pulses in tact, cap refill <2 sec RESPIRATORY: No respiratory distress, speaks in full sentences without difficu lty EXTREMITIES: Normal range of motion, no clubbing or edema. Neurovascularly intact NEUROLOGICAL: Cranial nerves II through XII grossly intact. Normal gait and speech. SKIN: Warm, dry, no petechiae, no rashes or lesions. Course Vital Signs Vital signs: Vital Signs - 8 hr 08/12/19 08:28 Temperature 97.7 F Pulse Rate 58 L Respiratory Rate 20 Blood Pressure 126/94 H Pulse Oximetry 98 Discharge Plan Departure Patient Disposition: Home Clinical Impression: Chronic dental pain Discharge Date/Time: 08/12/19 08:57 Instructions: DI for Dental Pain Activity Restrictions/Additional Instructions: *You have been diagnosed with dental pain *What to do: Need to follow-up with a dentist *Continue to take medications as directed--> sent to [facility] in [place] Amoxicillin 500 mg twice a day for 7 days Naproxen 500 mg twice a day as needed for pain with food Tylenol 650 mg every 4-6 hours if needed for [id number] pain *Follow up with your primary care provider in 2-3 days *Return to ER if you should have increasing facial swelling fevers or any new, worsening or concerning symptoms Prescriptions: New amoxicillin 500 mg capsule 500 mg PO BID Qty: 14 RF: 0 naproxen 500 mg tablet 500 mg PO BID PRN (Reason: pain) Qty: 30 RF: 0 No Action fluoxetine 20 mg capsule 20 mg PO DAILY RF: 0 clobetasol 0.05 % ointment 1 applictn TOP BEDTIME Qty: 30 RF: 0 albuterol sulfate 90 mcg/actuation aerosol powdr breath activated 1 inhalation INHALATION Q4-6H PRNRF: 0 medroxyprogesterone 10 mg tablet 10 mg PO DAILY Qty: 10 RF: 0 Referrals: Sil Espinosa MD [Primary Care Provider] -
== END 2019-08-12 08:57 | disposition home or self-care (01) ==
PROVIDERS: Emergency Provider Emergency Medicine; PCP Internal Medicine
DX: K08.9 Disorder of teeth and supporting structures, unspecified (principal)
CPT/HCPCS: 99281; 99283

== ENCOUNTER 2019-08-24 09:30 | Outpatient (RCR) | payer OTHER, MEDICAID, SELFPAY ==
--- NOTE | 2019-06-28 11:41 | OT.OP.TRT ---
Visit Care Team Role Provider Type Sil Espinosa MD Attending Provider Physician Primary Care Provider Specialty: Internal Medicine Address: [address] [place] [address], [id number] Email: [email or web address] Occupational Therapy Treatment Note OT Outpatient Treatment Note - Adult Start: 06/21/19 13:27 Freq: Status: Active Protocol: Document 06/28/19 11:35 AMS (Rec: 06/28/19 11:40 AMS [email or web address]) OT Outpatient Adult Treatment Note Visit Type Note Type Administrative Note - Subjective Observations Therapist faxed PCP requesting referral for outpatient speech therapy; please see paper chart for additional details. Original faxed request on 06/27/19 came back with error. Therapist to follow-up as appropriate. - - - -
--- NOTE | 2019-07-03 10:03 | OT.OP.TRT ---
Visit Care Team Role Provider Type Sil Espinosa MD Attending Provider Physician Primary Care Provider Specialty: Internal Medicine Address: [address] [place] [address], [id number] Email: [email or web address] Occupational Therapy Treatment Note OT Outpatient Treatment Note - Adult Start: 06/21/19 13:27 Freq: Status: Active Protocol: Document 07/03/19 09:50 AMS (Rec: 07/03/19 10:03 AMS [id number]) OT Outpatient Adult Treatment Note Session Time Visit Start Time 08:30 Visit Stop Time 09:15 Total Visit Minutes 45 Visit Information Plan of Care Dates 06/21/19-08/16/2019 Insurance Information [employer] - Adult Setting Treatment Setting Outpatient Care Visit Type Note Type Treatment Note General Information General Information Patient is a 38 year-old right hand dominant female referred to outpatient OT by PCP Sil Espinosa MD, secondary to proprioception problems. PMH: Significant for arthritis; back pain; blood clots; buising easily; depression; dizziness; falls; headaches; hearing problems; memory loss; neck pain; seizures; shortness of breath; surgery d /t broken tib/fib; TBI; smoking. Medical records reviewed also indicate PMH signficant for carpal tunnel syndrome; anxiety; headaches; bipolar disorder; PTSD; Restless leg syndrome; and scoliosis. Katja is currently being seen in outpatient clinic by PT d/t Alfred Elizabeth . - Subjective Identification Type Name Identification Reconciled With Medical Record Observations I picked up the guitar and I think I played for 6 to 7 hours per Katja. When I was playing the guitar this part of my hand was bothering me. Patient/Caregiver Compliance with Home Good Exercise Program - Objective Objective Measurements Please refer below for progress towards meeting established OT goals. Care Home Goals 1. Katja will be modified independent with execution of UE home exercise program utilizing provided written and visual instructions from therapist. 2. Katja will demonstrate improved awareness of digits/ hands in space; this will be evidenced by her ability to oppose her thumb successfully to each digit pad bilaterally x 2 cycles with her eyes closed with increased time. 3. Katja will be able to execute passive wrist flexion/ extension stretch x 1 rep each stretch, bilaterally, holding each stretch for up to 10 seconds with elbow in extension, without complaints of pain/discomfort. - Treatment 4 Descriptor Education re: basic joint protection. 3 Descriptor Neuro re-training. Awareness of digits in space. 2 Descriptor Eye-hand coordination outside of base of support to left and right of body. Eye-hand coordination obj manipulation between hands in frontal plane . Complexity Upgraded 1 Descriptor Proprioceptive input. Weight bearing through the hands/ digits at TT. Complexity Upgraded Exercises 4 Descriptor Manual mobs. Facilitation of ext of MCP, PIP, DIP at 4th and 5th digits of the left hand. 3 Descriptor UEB. x 5 minutes. Side Both 2 Descriptor Passive ROM of distal UEs. TT weight bearing; focus on WB through digits at TT. Complexity Upgraded 1 Descriptor Tendon glides. Hook fist. - Assessment Patient Response to Treatment Good Rehab Potential Good Assessment of Improvement (+) report of carry-over of HEP. Decreased discomfort reported w/ hook, tendon glides bilaterally. Advanced therapeutic activities/ exercises. Stiffness reported; tendency into flexion pattern primarily of the left hand. Recommended activities: tendon glides; basic joint protection principles; neuro re-training Home Exercise Program HEP. Advanced. Instructed in basic joint protection principles and use of breaks. Discussed returning to [employer] playing for limited amount of time (5-10 minutes). - Plan Therapy Recommendations Continue with Current Program, Advance per Rehabilitation Protocol
--- NOTE | 2019-07-09 13:24 | OT.OP.TRT ---
Visit Care Team Role Provider Type Sil Espinosa MD Attending Provider Physician Primary Care Provider Specialty: Internal Medicine Address: [address] [place] [address], [id number] Email: [email or web address] Occupational Therapy Treatment Note OT Outpatient Treatment Note - Adult Start: 06/21/19 13:27 Freq: Status: Active Protocol: Document 07/09/19 12:27 AMS (Rec: 07/09/19 13:24 AMS [email or web address]) OT Outpatient Adult Treatment Note Session Time Visit Start Time 12:30 Visit Stop Time 13:15 Total Visit Minutes 45 Visit Information Plan of Care Dates 06/21/19-08/16/2019 Insurance Information [employer] - Adult Setting Treatment Setting Outpatient Care Visit Type Note Type Treatment Note General Information General Information Patient is a 38 year-old right hand dominant female referred to outpatient OT by PCP Sil Espinosa MD, secondary to proprioception problems. PMH: Significant for arthritis; back pain; blood clots; buising easily; depression; dizziness; falls; headaches; hearing problems; memory loss; neck pain; seizures; shortness of breath; surgery d /t broken tib/fib; TBI; smoking. Medical records reviewed also indicate PMH signficant for carpal tunnel syndrome; anxiety; headaches; bipolar disorder; PTSD; Restless leg syndrome; and scoliosis. Katja is currently being seen in outpatient clinic by PT d/t Alfred Elizabeth . - Subjective Identification Type Name Identification Reconciled With Medical Record Observations I tried playing the guitar. It hurt right here after about a minute and a half per Katja in re: L hand. Patient/Caregiver Compliance with Home Good Exercise Program - Objective Objective Measurements Please refer below for progress towards meeting established OT goals. Detention Goals 1. Katja will be modified independent with execution of UE home exercise program utilizing provided written and visual instructions from therapist. 2. Katja will demonstrate improved awareness of digits/ hands in space; this will be evidenced by her ability to execute bilateraly chain links x 2 cycles with her eyes closed with increased time. = goal upgraded 3. Katja will be able to execute passive wrist flexion/ extension stretch x 1 rep each stretch, bilaterally, holding each stretch for up to 10 seconds with elbow in extension, without complaints of pain/discomfort. 07/09/19= 25% met GOALS MET Opposed thumb to each digit pad B x 2 cycles w/ EC. MET - Treatment 4 Descriptor Education re: basic joint protection. 3 Descriptor Neuro re-training. Awareness of digits in space. Opposition . Chain links. Object manip (3 -jaw grasp resistant clothespins). Awareness of UEs in space. Circles. Figure 8s. TT slides w/ 2nd digit isolation. 2 Descriptor Eye-hand coordination. 1 Descriptor Proprioceptive input. WB through hands standing at TT. Left <-> Right. Forward <-> Backward. Complexity Upgraded Exercises 4 Descriptor Manual mobs. Facilitation of ext of MCP, PIP, DIP at 4th and 5th digits of the left hand. 3 Descriptor UEB. x 5 minutes. Side Both 2 Descriptor Passive ROM of distal UEs. Passive wrist/digit flexor stretch. B radial side wrist stretch 'dive'. Complexity Upgraded 1 Descriptor Tendon glides. Hook fist. - Assessment Patient Response to Treatment Good Rehab Potential Good Assessment of Improvement (+) report of carry-over of HEP. Decreased discomfort reported w/ hook, tendon glides bilaterally and WB at TT. However, continued report of stiffness in hands/wrists/ proximal UEs. Advanced exercises/activities in treatment session. Recommended activities: tendon glides; neuro re- training; ROM; proprioceptive input to UEs; WB Home Exercise Program HEP. No additional changes to HEP were made at this time. - Plan Therapy Recommendations Continue with Current Program, Advance per Rehabilitation Protocol
--- NOTE | 2019-07-20 13:09 | OT.OP.TRT ---
Visit Care Team Role Provider Type Sil Espinosa MD Attending Provider Physician Primary Care Provider Specialty: Internal Medicine Address: [address] [place] [address], [id number] Email: [email or web address] Occupational Therapy Treatment Note OT Outpatient Treatment Note - Adult Start: 06/21/19 13:27 Freq: Status: Active Protocol: Document 07/20/19 12:35 AMS (Rec: 07/20/19 13:09 AMS [email or web address]) OT Outpatient Adult Treatment Note Session Time Visit Start Time 12:30 Visit Stop Time 13:15 Total Visit Minutes 45 Visit Information Plan of Care Dates 06/21/19-08/16/2019 Insurance Information [employer] - Adult Setting Treatment Setting Outpatient Care Visit Type Note Type Treatment Note General Information General Information Patient is a 38 year-old right hand dominant female referred to outpatient OT by PCP Sil Espinosa MD, secondary to proprioception problems. PMH: Significant for arthritis; back pain; blood clots; buising easily; depression; dizziness; falls; headaches; hearing problems; memory loss; neck pain; seizures; shortness of breath; surgery d /t broken tib/fib; TBI; smoking. Medical records reviewed also indicate PMH signficant for carpal tunnel syndrome; anxiety; headaches; bipolar disorder; PTSD; Restless leg syndrome; and scoliosis. Katja is currently being seen in outpatient clinic by PT d/t Alfred Elizabeth . - Subjective Identification Type Name Identification Reconciled With Medical Record Observations My doctor wants me to re- start PT for balance and to address vestibular issues per Katja. I am going to start the patch on Tuesday in order to quit smoking. Patient/Caregiver Compliance with Home Good Exercise Program Comments utilizing provided written and visual instructions - Objective Objective Measurements Please refer below for progress towards meeting established OT goals. Wrist and embalmer/funeral director/digit strength testing completed. Katja reported pain/discomfort w/ extended periods of time spent writing. Complaints of pain/ discomfort in bilateral hands w/ extended periods of time spent texting/utilizing phone. Increased effort reported w/ opening cans; however, able to manage. Assistance provided by boyfriend w/ managing filled cookware on stovetop. Short Term Goals 1. MMT right wrist extension 4/5. 2. MMT left wrist extension 4 /5. 3. Katja will average 10.6+ pounds of force with right lateral pinch strength testing . Snf Goals 1. Katja will be modified independent with execution of UE home exercise program utilizing provided written and visual instructions from therapist. 2. Katja will demonstrate improved awareness of digits/ hands in space; this will be evidenced by her ability to execute bilateraly chain links x 2 cycles with her eyes closed with increased time. = goal upgraded 3. Katja will be able to execute passive wrist flexion/ extension stretch x 1 rep each stretch, bilaterally, holding each stretch for up to 10 seconds with elbow in extension, without complaints of pain/discomfort. 07/20/19= 25 % met GOALS MET Opposed thumb to each digit pad B x 2 cycles w/ EC. MET - Treatment 3 Descriptor Neuro re-training. Awareness of digits in space. Opposition . Chain links. Object manip (3 -jaw grasp resistant clothespins). Awareness of UEs in space. Circles. Figure 8s. TT slides w/ 2nd digit isolation. 2 Descriptor Eye-hand coordination. 1 Descriptor Proprioceptive input. WB through hands standing at TT. Left <-> Right. Forward <-> Backward. Complexity Upgraded Exercises 3 Descriptor UEB. x 10 minutes. Seated. Side Both 2 Descriptor Passive ROM of distal UEs. Passive wrist/digit flexor stretch. B radial side wrist stretch 'dive'. Passive wrist/ digit flexor stretch w/ slight ulnar deviation. Complexity Upgraded 1 Descriptor Tendon glides. - Assessment Patient Response to Treatment Good Rehab Potential Good Assessment of Improvement Decreased distal UE strength; decreased bilateral digit/ wrist strength. Complaints of pain/discomfort w/ prolonged use of hands/digits w/ writing and/or managing personal cell phone. Advanced HEP to address hand/digit strength. Advanced goals to address this area. Improving eye-hand coordination reported. Continued c/o hand/digit stiffness and fatigue. Recommended activities: tendon glides; neuro re- training; strengthening of distal UEs Home Exercise Program HEP/POC. Upgraded HEP. Provided personal green theraputty for home use. Written and visual instructions were provided as well. HEP was placed in paper chart for future reference ( lateral dean pinch, 3-jaw pinch , resisted opposition, digit extension). Reviewed in session. Katja denied questions . Instructed to also follow-up w/ PCP and/or PCP's nurse re: referrals. - Plan Therapy Recommendations Continue with Current Program, Advance per Rehabilitation Protocol
--- NOTE | 2019-07-27 10:50 | OT.OP.TRT ---
Visit Care Team Role Provider Type Sil Espinosa MD Attending Provider Physician Primary Care Provider Specialty: Internal Medicine Address: [address] [place] [address], [id number] Email: [email or web address] Occupational Therapy Treatment Note OT Outpatient Treatment Note - Adult Start: 06/21/19 13:27 Freq: Status: Active Protocol: Document 07/27/19 09:46 AMS (Rec: 07/27/19 10:50 AMS [email or web address]) OT Outpatient Adult Treatment Note Session Time Visit Start Time 09:30 Visit Stop Time 10:18 Total Visit Minutes 48 Visit Information Plan of Care Dates 06/21/19-08/16/2019 Insurance Information [employer] - Adult Setting Treatment Setting Outpatient Care Visit Type Note Type Treatment Note General Information General Information Patient is a 38 year-old right hand dominant female referred to outpatient OT by PCP Sil Espinosa MD, secondary to proprioception problems. PMH: Significant for arthritis; back pain; blood clots; buising easily; depression; dizziness; falls; headaches; hearing problems; memory loss; neck pain; seizures; shortness of breath; surgery d /t broken tib/fib; TBI; smoking. Medical records reviewed also indicate PMH signficant for carpal tunnel syndrome; anxiety; headaches; bipolar disorder; PTSD; Restless leg syndrome; and scoliosis. Katja is currently being seen in outpatient clinic by PT d/t Alfred Elizabeth . - Subjective Identification Type Name Identification Reconciled With Medical Record Observations My leg has been really bothering me. I still don't think that my doctor has sent over anything yet for PT per Katja. I have been practicing my exercises. I haven't smoked for 5 days. Patient/Caregiver Compliance with Home Good Exercise Program Comments utilizing provided written and visual instructions - Objective Objective Measurements Re-administered 9-Hole Peg Test. Completed 9-Hole Peg Test in 22.8 sec w/ R hand ( compared to initial 36.3 sec); completed 9-Hole Peg Test in 22.7 sec w/ L hand (compared to initial 36.2 sec). Norms for 9-Hole Peg Test for women 35-39 years of age R hand = 17 .9 +/- 2.4 sec (Interpretation = slightly > than 2 SD above the mean); L hand = 19.4 +/- 3 .5 sec (Interpretation = within 1 SD above the mean). Please refer below for progress towards meeting established OT goals. Katja reported pain/discomfort w/ extended periods of time spent writing. Complaints of pain/ discomfort in bilateral hands w/ extended periods of time spent texting/utilizing phone. Increased effort reported w/ opening cans; however, able to manage. Assistance provided by boyfriend w/ managing filled cookware on stovetop. Short Term Goals 1. MMT right wrist extension 4/5. 2. MMT left wrist extension 4 /5. 3. Katja will average 10.6+ pounds of force with right lateral pinch strength testing . [facility] Goals 1. Katja will be modified independent with execution of UE home exercise program utilizing provided written and visual instructions from therapist. 2. Katja will present with increased motor coordination of the preferred hand which will support her active participation in meaningful activities in the home environment (playing [email or web address]); this will be evidenced by her ability to agrawal 5 dice in preferred hand x 10 trials without dropping a > 1 time. 3. Katja will be able to execute passive wrist flexion/ extension stretch x 1 rep each stretch, bilaterally, holding each stretch for up to 10 seconds with elbow in extension, without complaints of pain/discomfort. 07/27/19= 50% met 4. Katja will present with increased motor planning of the preferred hand; this will be evidenced by her ability to complete 9-Hole Peg Test within 2 standard deviations above the mean (22.6 seconds or less). GOALS MET Opposed thumb to each digit pad B x 2 cycles w/ EC. *MET 07/09/19 Executed B chain links x 2 cycles w/ EC with increased time. *MET 07/27/19 - Treatment 4 Descriptor Motor coordination. Focus on radial side of hand w/ obj manipulation. 3 Descriptor Neuro re-training. Awareness of digits in space. Chain links. Object manip (3-jaw grasp resistant clothespins). Awareness of UEs in space. 2 Descriptor Eye-hand coordination. Exercises 3 Descriptor UEB. x 5 minutes. Seated. Both directions. Side Both 2 Descriptor Passive ROM of distal UEs. Passive wrist/digit flexor stretch. B radial side wrist stretch 'dive'. Passive wrist/ digit flexor stretch w/ slight ulnar deviation. 1 Descriptor Tendon glides. - Assessment Patient Response to Treatment Good Rehab Potential Good Assessment of Improvement Improving awareness of digits in space; met short term goal in this area. Decreased motor coordination of bilateral thumbs; decreased separation of 2 sides of hands. Improving speed and efficiency w/ obj manipulation; this is evidenced by increased speed with 9-Hole Peg test bilaterally. Continued c/o hand/digit stiffness and fatigue. Continued outpt OT recommended to maximize patient's ability to engage in meaningful activities. Recommended activities: tendon glides; neuro re- training; strengthening of distal UEs Home Exercise Program HEP/POC. Upgraded HEP. Written and visual instructions provided; activities reviewed in treatment session. Instructions were also placed in paper chart. Katja denied questions. - Plan Therapy Recommendations Continue with Current Program, Advance per Rehabilitation Protocol
--- NOTE | 2019-08-03 12:47 | OT.OP.TRT ---
Visit Care Team Role Provider Type Sil Espinosa MD Attending Provider Physician Primary Care Provider Specialty: Internal Medicine Address: [address] [place] [address], [phone] Email: [email or web address] Occupational Therapy Treatment Note OT Outpatient Treatment Note - Adult Start: 06/21/19 13:27 Freq: Status: Active Protocol: Document 08/03/19 12:40 AMS (Rec: 08/03/19 12:47 AMS [email or web address]) OT Outpatient Adult Treatment Note Session Time Visit Start Time 09:30 Visit Stop Time 10:20 Total Visit Minutes 50 Visit Information Plan of Care Dates 06/21/19-08/16/2019 Insurance Information [employer] - Adult Setting Treatment Setting Outpatient Care Visit Type Note Type Treatment Note General Information General Information Patient is a 38 year-old right hand dominant female referred to outpatient OT by PCP Sil Espinosa MD, secondary to proprioception problems. PMH: Significant for arthritis; back pain; blood clots; buising easily; depression; dizziness; falls; headaches; hearing problems; memory loss; neck pain; seizures; shortness of breath; surgery d /t broken tib/fib; TBI; smoking. Medical records reviewed also indicate PMH signficant for carpal tunnel syndrome; anxiety; headaches; bipolar disorder; PTSD; Restless leg syndrome; and scoliosis. Katja is currently being seen in outpatient clinic by PT d/t Alfred Elizabeth . - Subjective Identification Type Name Identification Reconciled With Medical Record Observations My leg has been really bothering me. I have been trying to put my hands under my blankets to keep them warm while I do the things that you told me per Katja. Patient/Caregiver Compliance with Home Good Exercise Program Comments utilizing provided written and visual instructions - Objective Objective Measurements Please refer below for progress towards meeting established OT goals. Katja reported pain/discomfort w/ extended periods of time spent writing. Complaints of pain/ discomfort in bilateral hands w/ extended periods of time spent texting/utilizing phone. Increased effort reported w/ opening cans; however, able to manage. Assistance provided by boyfriend w/ managing filled cookware on stovetop. 07/27/19= Re-administered 9- Hole Peg Test. Completed 9- Hole Peg Test in 22.8 sec w/ R hand (compared to initial 36. 3 sec); completed 9-Hole Peg Test in 22.7 sec w/ L hand ( compared to initial 36.2 sec). Norms for 9-Hole Peg Test for women 35-39 years of age R hand = 17.9 +/- 2.4 sec ( Interpretation = slightly > than 2 SD above the mean); L hand = 19.4 +/- 3.5 sec ( Interpretation = within 1 SD above the mean). Short Term Goals 1. MMT right wrist extension 4/5. 2. MMT left wrist extension 4 /5. 3. Katja will average 10.6+ pounds of force with right lateral pinch strength testing . Long-Term Goals 1. Katja will be modified independent with execution of UE home exercise program utilizing provided written and visual instructions from therapist. 2. Katja will present with increased motor coordination of the preferred hand which will support her active participation in meaningful activities in the home environment (playing [employer]); this will be evidenced by her ability to agrawal 5 dice in preferred hand x 10 trials without dropping a > 1 time. 08/03/19= 75 met; 8/10 trials 3. Katja will be able to execute passive wrist flexion/ extension stretch x 1 rep each stretch, bilaterally, holding each stretch for up to 10 seconds with elbow in extension, without complaints of pain/discomfort. 07/27/19= 50% met 4. Katja will present with increased motor planning of the preferred hand; this will be evidenced by her ability to complete 9-Hole Peg Test within 2 standard deviations above the mean (22.6 seconds or less). GOALS MET Opposed thumb to each digit pad B x 2 cycles w/ EC. *MET 07/09/19 Executed B chain links x 2 cycles w/ EC with increased time. *MET 07/27/19 - Treatment 4 Descriptor Motor coordination. Focus on radial side of hand w/ obj manipulation. 3 Descriptor Neuro re-training. Awareness of digits in space. Awareness of UEs in space. 2 Descriptor Eye-hand coordination. Exercises 3 Descriptor UEB. x 5 minutes. Seated. Both directions. Side Both 2 Descriptor Passive ROM of distal UEs. Wrist flexion/extension ROM stretches. Wrist RD/UD ROM stretches. 1 Descriptor Tendon glides. - Assessment Patient Response to Treatment Good Rehab Potential Good Assessment of Improvement Improved coordination of B thumbs noted w/ in-hand manipulation tasks; increased speed and efficiency w/ preferred hand/thumb. Increased c/o pain/discomfort of thumbs/wrists compared to previous treatment session. This may be d/t cold temperatures and environment; however, patient is trying to keep hands warm utilizing strategies available to her. Discomfort reported B w/ wrist circles. Continued c/o hand/ digit stiffness and fatigue. Continued outpt OT recommended to maximize patient's ability to engage in meaningful activities. Recommended activities: tendon glides; neuro re- training; strengthening of distal UEs; flexibility/ROM of distal UEs Home Exercise Program HEP/POC. Education re: tools to support maintenance of available ROM/flexibility. Discussed options for heat. Recommended positioning out of RD at rest/active wrist RD/UD at TT. Patient denied questions. - Plan Therapy Recommendations Continue with Current Program, Advance per Rehabilitation Protocol
--- NOTE | 2019-08-10 12:34 | OT.OP.REEVAL ---
Visit Care Team Role Provider Type Sil Espinosa MD Attending Provider Physician Primary Care Provider Address: [address] [place] [address], [id number] Email: [email or web address] Outpatient OT Outpatient Adult Evaluation Start: 06/21/19 13:27 Freq: Status: Active Protocol: Document 06/21/19 13:27 AMS (Rec: 06/21/19 14:05 AMS [email or web address]) General Information Session Time Visit Start Time 12:30 Visit Stop Time 13:18 Total Visit Minutes 48 Visit Information Plan of Care Dates 06/21/19-08/16/2019 Insurance Information [employer] - Adult Setting Treatment Setting Outpatient Care Visit Type Note Type Initial Evaluation Referral Referring Physician Sil Espinosa MD Identification Identification Confirmed Yes: Photo ID Therapy Pain Assessment Pain Present Pain Present Pain Reported Location Lower Back Scale Used 6-7 Left Mello Intensity 4 Scale Used Numeric (1 - 10) Left Thigh Intensity 4 Scale Used Numeric (1 - 10) Right Thigh Scale Used 1-4 Right Hip Intensity 5 Scale Used Numeric (1 - 10) Right Posterior Elbow Intensity 1 Scale Used Numeric (1 - 10) Posterior Neck Scale Used 6-7 Left Hand Intensity 4 Scale Used Numeric (1 - 10) Right Shoulder Intensity 4 Scale Used Numeric (1 - 10) ADLs Overall Ability Basic ADLs WFL Comments Per patient report, mod I w/ dressing, g/h, eating, bathing , toileting IADLs Overall Function Comments Impairment based on activity Meal Preparation Skill Level WFL Driving Driving Ability Currently not driving. Skill Level Impaired Neurological Assessment - Adult Coordination Comments [id number]: Mild Impairment R EO; missed finger /nose; increased concentration required. Mild Impairment R EC; increased margins of error w/ missing finger/nose. Mild Impairment L EC; decreased margin of error compared to R. Mild Impairment w/ L EC; errors w/ missing finger/nose. Finger Opposition: Increased concentration w/ opposition R and L w/ EO. B errors w/ opposition w/ EC. Fine Motor Standardized Assessments Additional Standardized Assessment 9-Hole Peg Test administered. Completed in 36.3 sec w/ R hand. Completed in 36.2 sec w/ L hand. Goals Treatment Treatment Initiated home exercise program. Written and visual instructions were provided and reviewed in treatment session . Recommendations included hook tendon glide, prayer stretch, and thumb opposition without visual feedback. Food Order Expediter Goals Care Home Goals 1. Katja will be modified independent with execution of UE home exercise program utilizing provided written and visual instructions from therapist. 2. Katja will demonstrate improved awareness of digits/ hands in space; this will be evidenced by her ability to oppose her thumb successfully to each digit pad bilaterally x 2 cycles with her eyes closed with increased time. 3. Katja will be able to execute passive wrist flexion/ extension stretch x 1 rep each stretch, bilaterally, holding each stretch for up to 10 seconds with elbow in extension, without complaints of pain/discomfort. Assessment/Plan Assessment Treatment Assessment Patient is a 38 year-old right hand dominant female referred to outpatient OT by PCP Sil Espinosa MD, secondary to proprioception problems. PMH: Significant for arthritis; back pain; blood clots; buising easily; depression; dizziness; falls; headaches; hearing problems; memory loss; neck pain; seizures; shortness of breath; surgery d /t broken tib/fib; TBI; smoking. Medical records reviewed also indicate PMH signficant for carpal tunnel syndrome; anxiety; headaches; bipolar disorder; PTSD; Restless leg syndrome; and scoliosis. Katja is currently being seen in outpatient clinic by PT d/t Alfred Elizabeth . Evaluation findings: Right hand dominant; (+) B intrinsic tightness; (+) posturing of B digits into flexion pattern; decreased UE orientation to midline (in front of body and above head); (-) h/o use of splints/kinesiotape for wrists /hands; (+) use of SPC w/ ambulation; pain/discomfort of UEs reported; impaired kinesthetic awareness of digits and upper extremities in space; impaired motor planning of digits/hands; (-) UE HEP at this time; personal report of knocking items over w/ meal preparation and/or when navigating environment; and reported difficulties/ inability to engage in written tasks and/or learning to play personal guitar d/t pain/ discomfort. Outpatient OT is recommended to address these areas in order to maximize patient's success w/ active engagement in meaningful activities in a variety of environments within the community and home. Home Exercise Program Please refer to treatment section of note for specific details. Plan Comment 8 weeks Treatment Frequency Once a Week Therapeutic Contents Active Range of Motion, Adaptive Equipment Education, Client Education,Cognitive Skills Development,Functional Activities,Home Exercise Program,Joint Protection, Manual Therapy,Education, Neurodevelopment Treatment, Self-Care,Stretching/ Flexibility Activities, Therapeutic Activities, Therapeutic Exercises,Sensory Re-education Modalities As Needed,As Prescribed Types of Modalities E-Stim,Functional Stimulation (FES),Ice Massage,T.E.N. Stimulation,TENS Placement/ Application,Other Additional Types of Modalities Heat/Contrast Baths/Paraffin bath Patient Instruction Home Exercise Program,Plan of Care,Questions/Concerns Suggested Referrals Speech Therapy Sensory Assessment Sensory Profile2 Functional Wrist/Hand Scan Hand Side OT Outpatient Muscle Testing Start: 07/20/19 12:35 Freq: Status: Active Protocol: Document 08/10/19 09:45 AMS (Rec: 08/10/19 12:34 AMS [email or web address]) Wrist Strength Wrist Manual Muscle Testing Left Flexion (C7) 4 Good Extension (C6) 4+ Good+ Ulnar Deviation 4+ Good+ Radial Deviation 4- Good- Comments Strength Remeasured 08/10/19 07/20/19 Measurements: Flexion 4/5 MMT Extension 4-/5 MMT UD 4-/[address] 3+/5 MMT Right Flexion (C7) 4 Good Extension (C6) 4 Good Ulnar Deviation 4 Good Radial Deviation 4 Good Comments Strength Remeasured 08/10/19 07/20/19 Measurements: Flexion 4/5 MMT Extension 3+/5 MMT UD 3+/[address] 3+/5 MMT [employer]/Hand Strength [employer]/Hand Strength Left [employer] Dynamometer II 18.0 Lateral Pinch Strengh (lbs) 8.0 Palmar Pinch Strength (lbs) 8.7 Comments L [employer] Strength Norms 35-39 = 66.3 +/- 11.7 pounds of force (Interpretation = > 4+ SD below the mean) L Lateral Pinch Strength Norms 35-39 = 16.0 +/- 2.7 pounds of force (Interpretation = > 2 + SD below the mean) L 3-jaw Pinch Strength Norms 35-39 = 17.1 +/- 3.4 pounds of force (Interpretation = > 2+ SD below the mean) Right [employer] Dynamometer II 30.0 Lateral Pinch Strengh (lbs) 8.0 Palmar Pinch Strength (lbs) 9.0 Comments R [employer] Strength Norms 35-39 = 74.1 +/- 10.8 pounds of force (Interpretation = > 4+ SD below the mean) R Lateral Pinch Strength Norms 35-39 = 16.6 +/- 2.0 pounds of force (Interpretation = > 4 + SD below the mean) R 3-jaw Pinch Strength Norms 35-39 = 17.5 +/- 4.2 pounds of force (Interpretation = > 2+ SD below the mean) OT Outpatient Treatment Note - Adult Start: 06/21/19 13:27 Freq: Status: Active Protocol: Document 08/10/19 09:45 AMS (Rec: 08/10/19 12:34 AMS [email or web address]) OT Outpatient Adult Treatment Note Session Time Visit Start Time 09:35 Visit Stop Time 10:20 Total Visit Minutes 45 Visit Information Plan of Care Dates 08/10/19-09/21/2019 Insurance Information [employer] - Adult Setting Treatment Setting Outpatient Care Visit Type Note Type Re-Evaluation General Information General Information Patient is a 38 year-old right hand dominant female referred to outpatient OT by PCP Sil Espinosa MD, secondary to proprioception problems. PMH: Significant for arthritis; back pain; blood clots; buising easily; depression; dizziness; falls; headaches; hearing problems; memory loss; neck pain; seizures; shortness of breath; surgery d /t broken tib/fib; TBI; smoking. Medical records reviewed also indicate PMH signficant for carpal tunnel syndrome; anxiety; headaches; bipolar disorder; PTSD; Restless leg syndrome; and scoliosis. Katja is currently being seen in outpatient clinic by PT d/t Alfred LE weakness . 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 Patient/Caregiver Compliance with Home Good Exercise Program Comments utilizing provided written and visual instructions - Objective Objective Measurements Please refer below for progress towards meeting established OT goals. Therapist re-assessed wrist strength and R lateral pinch strength on this date; Katja avg 12.2# of force w/ R lateral pinch strength w/ pinchometer testing. Decreased motor planning noted bilaterally w/ thumb ext w/ hand on TT, thumb radial adduction, and thumb opposition to base of 5th digit. Katja reported pain/discomfort w/ extended periods of time spent writing. Complaints of pain/discomfort in bilateral hands w/ extended periods of time spent texting/utilizing phone. Increased effort reported w/ opening cans; however, able to manage. Assistance provided by boyfriend w/ managing filled cookware on stovetop. 07/27/19= Re-administered 9- Hole Peg Test. Completed 9- Hole Peg Test in 22.8 sec w/ R hand (compared to initial 36. 3 sec); completed 9-Hole Peg Test in 22.7 sec w/ L hand ( compared to initial 36.2 sec). Norms for 9-Hole Peg Test for women 35-39 years of age R hand = 17.9 +/- 2.4 sec ( Interpretation = slightly > than 2 SD above the mean); L hand = 19.4 +/- 3.5 sec ( Interpretation = within 1 SD above the mean). Short Term Goals 1. MMT left wrist RD 4/5. 2. Patient will present with increased success with object manipulation tasks; this will be evidenced by Katja averaging 41.7+ pounds of force with right bacteriologist food strength testing. 3. Patient will present with increased success with object manipulation tasks; this will be evidenced by Katja averaging 31.2+ pounds of force with left bacteriologist food strength testing. GOALS MET MMT left wrist extension 4/5. *MET 08/10/19= 4+/5 MMT MMT right wrist extension 4/5. *MET 08/10/19= 4/5 MMT Will avg 10.6+ pounds of force w/ R lateral pinch strength testing. *MET 08/10/19= avg 12. 2# of force Care Home Goals 1. Katja will be modified independent with execution of UE home exercise program utilizing provided written and visual instructions from therapist. 2. Katja will present with increased motor planning of the preferred hand; this will be evidenced by her ability to complete 9-Hole Peg Test within 2 standard deviations above the mean (22.6 seconds or less). GOALS MET Opposed thumb to each digit pad B x 2 cycles w/ EC. *MET 07/09/19 Executed B chain links x 2 cycles w/ EC with increased time. *MET 07/27/19 Able to agrawal 5 dice w/ preferred hand x 10 trials without dropping any dice w/ increased concentration. *MET 08/10/19 Executed PROM wrist flex/ext stretch x 1 fror 10 sec w/ elbow in ext, w/ stretching sensation B. *MET 08/10/19 - Treatment 4 Descriptor Motor coordination. Manipulation of dice. Radial side object manipulation. Motor planning of the thumbs. 3 Descriptor Neuro re-training. Motor planning of thumbs. 2 Descriptor Eye-hand coordination. Exercises 3 Descriptor UEB. x 5 minutes. Seated. Both directions. Side Both 2 Descriptor Passive ROM of distal UEs. Wrist flexion/extension ROM stretches. Wrist RD/UD ROM stretches. 1 Descriptor Tendon glides. - Assessment Patient Response to Treatment Good Rehab Potential Good Assessment of Improvement Katja has made progress over the last certification period in the areas of in-hand manipulation abilities, awareness of distal UEs in space (kinesthetic/ proprioceptive awareness), flexibility, pain-free ROM, tightness of hands, wrist strength, and digit strength. This is evidenced by Katja meeting short term goals in these areas and patient's verbal report of decreasing discomfort in distal UEs and increasing eye-hand coordination w/ engagement in meaningful activities. Despite these gains, Katja continues to present w/ decreased thumb motor planning, decreased speed and efficiency w/ in- hand manipulation, decreased hand/digit strength, which is impacting her success in day- to-day life. Thus, continued outpt OT recommended to maximize patient's ability to engage in meaningful activities. Recommended activities: thumb motor planning Home Exercise Program HEP/POC. Upgraded HEP. Instructed in thumb ROM/motor planning. Written and visual instructions were provided to Katja and placed in paper chart for reference. Patient denied questions. - Plan Therapy Recommendations Continue with Current Program, Advance per Rehabilitation Protocol Comment 6 weeks Frequency of Treatment Once a Week Therapeutic Contents Active Range of Motion, Adaptive Equipment Education, Client Education,Cognitive Skills Development,Functional Activities,Home Exercise Program,Joint Protection, Manual Therapy,Education, Neurodevelopment Treatment, Neuromuscular Re-Education, Self-Care,Stretching/ Flexibility Activities, Therapeutic Activities, Therapeutic Exercises, Modalities Modalities As Needed,As Prescribed Types of Modalities Contrast Bath,Ice Massage, Ultrasound Additional Types of Modalities Heat, Paraffin bath Suggested Referrals Physical Therapy,Speech Therapy Occupational Therapy Assessment OT Outpatient Muscle Testing Start: 07/20/19 12:35 Freq: Status: Active Protocol: Document 08/10/19 09:45 AMS (Rec: 08/10/19 12:34 AMS [email or web address]) Wrist Strength Wrist Manual Muscle Testing Left Flexion (C7) 4 Good Extension (C6) 4+ Good+ Ulnar Deviation 4+ Good+ Radial Deviation 4- Good- Comments Strength Remeasured 08/10/19 07/20/19 Measurements: Flexion 4/5 MMT Extension 4-/5 MMT UD 4-/[address] 3+/5 MMT Right Flexion (C7) 4 Good Extension (C6) 4 Good Ulnar Deviation 4 Good Radial Deviation 4 Good Comments Strength Remeasured 08/10/19 07/20/19 Measurements: Flexion 4/5 MMT Extension 3+/5 MMT UD 3+/[address] 3+/5 MMT [employer]/Hand Strength [employer]/Hand Strength Left [employer] Dynamometer II 18.0 Lateral Pinch Strengh (lbs) 8.0 Palmar Pinch Strength (lbs) 8.7 Comments L [employer] Strength Norms 39 = 66.3 +/- 11.7 pounds of force (Interpretation = > 4+ SD below the mean) L Lateral Pinch Strength Norms = 16.0 +/- 2.7 pounds of force (Interpretation = > 2 + SD below the mean) L 3-jaw Pinch Strength Norms 39 = 17.1 +/- 3.4 pounds of force (Interpretation = > 2+ SD below the mean) Right [employer] Dynamometer II 30.0 Lateral Pinch Strengh (lbs) 8.0 Palmar Pinch Strength (lbs) 9.0 Comments R [employer] Strength Norms 39 = 74.1 +/- 10.8 pounds of force (Interpretation = > 4+ SD below the mean) R Lateral Pinch Strength Norms 39 = 16.6 +/- 2.0 pounds of force (Interpretation = > 4 + SD below the mean) R 3-jaw Pinch Strength Norms -39 = 17.5 +/- 4.2 pounds of force (Interpretation = > 2+ SD below the mean)
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
--- NOTE | 2019-12-26 09:45 | OT.OP.DC ---
Visit Care Team Role Provider Type Sil Espinosa MD Attending Provider Physician Primary Care Provider Address: [address] [place] [address], [id number] Email: [email or web address] OT Outpatient OT Outpatient Adult Evaluation Start: 06/21/19 13:27 Freq: Status: Active Protocol: Document 06/21/19 13:27 AMS (Rec: 06/21/19 14:05 AMS [email or web address]) General Information Session Time Visit Start Time 12:30 Visit Stop Time 13:18 Total Visit Minutes 48 Visit Information Plan of Care Dates 06/21/19-08/16/2019 Insurance Information [employer] - Adult Setting Treatment Setting Outpatient Care Visit Type Note Type Initial Evaluation Referral Referring Physician Sil Espinosa MD Identification Identification Confirmed Yes: Photo ID Therapy Pain Assessment Pain Present Pain Present Pain Reported Location Lower Back Scale Used 6-7 Left Mello Intensity 4 Scale Used Numeric (0 - 10) Left Thigh Intensity 4 Scale Used Numeric (0 - 10) Right Thigh Scale Used 1-4 Right Hip Intensity 5 Scale Used Numeric (0 - 10) Right Posterior Elbow Intensity 1 Scale Used Numeric (0 - 10) Posterior Neck Scale Used 6-7 Left Hand Intensity 4 Scale Used Numeric (0 - 10) Right Shoulder Intensity 4 Scale Used Numeric (0 - 10) ADLs Overall Ability Basic ADLs WFL Comments Per patient report, mod I w/ dressing, g/h, eating, bathing , toileting IADLs Overall Function Comments Impairment based on activity Meal Preparation Skill Level WFL Driving Driving Ability Currently not driving. Skill Level Impaired Neurological Assessment - Adult Coordination Comments [id number]: Mild Impairment R EO; missed finger /nose; increased concentration required. Mild Impairment R EC; increased margins of error w/ missing finger/nose. Mild Impairment L EC; decreased margin of error compared to R. Mild Impairment w/ L EC; errors w/ missing finger/nose. Finger Opposition: Increased concentration w/ opposition R and L w/ EO. B errors w/ opposition w/ EC. Fine Motor Standardized Assessments Additional Standardized Assessment 9-Hole Peg Test administered. Completed in 36.3 sec w/ R hand. Completed in 36.2 sec w/ L hand. Goals Treatment Treatment Initiated home exercise program. Written and visual instructions were provided and reviewed in treatment session . Recommendations included hook tendon glide, prayer stretch, and thumb opposition without visual feedback. [place] Goals Senior Care Goals 1. Katja will be modified independent with execution of UE home exercise program utilizing provided written and visual instructions from therapist. 2. Katja will demonstrate improved awareness of digits/ hands in space; this will be evidenced by her ability to oppose her thumb successfully to each digit pad bilaterally x 2 cycles with her eyes closed with increased time. 3. Katja will be able to execute passive wrist flexion/ extension stretch x 1 rep each stretch, bilaterally, holding each stretch for up to 10 seconds with elbow in extension, without complaints of pain/discomfort. Assessment/Plan Assessment Treatment Assessment Patient is a 38 year-old right hand dominant female referred to outpatient OT by PCP Sil Espinosa MD, secondary to proprioception problems. PMH: Significant for arthritis; back pain; blood clots; buising easily; depression; dizziness; falls; headaches; hearing problems; memory loss; neck pain; seizures; shortness of breath; surgery d /t broken tib/fib; TBI; smoking. Medical records reviewed also indicate PMH signficant for carpal tunnel syndrome; anxiety; headaches; bipolar disorder; PTSD; Restless leg syndrome; and scoliosis. Katja is currently being seen in outpatient clinic by PT d/t Alfred Elizabeth . Evaluation findings: Right hand dominant; (+) B intrinsic tightness; (+) posturing of B digits into flexion pattern; decreased UE orientation to midline (in front of body and above head); (-) h/o use of splints/kinesiotape for wrists /hands; (+) use of SPC w/ ambulation; pain/discomfort of UEs reported; impaired kinesthetic awareness of digits and upper extremities in space; impaired motor planning of digits/hands; (-) UE HEP at this time; personal report of knocking items over w/ meal preparation and/or when navigating environment; and reported difficulties/ inability to engage in written tasks and/or learning to play personal guitar d/t pain/ discomfort. Outpatient OT is recommended to address these areas in order to maximize patient's success w/ active engagement in meaningful activities in a variety of environments within the community and home. Home Exercise Program Please refer to treatment section of note for specific details. Plan Comment 8 weeks Treatment Frequency Once a Week Therapeutic Contents Active Range of Motion, Adaptive Equipment Education, Client Education,Cognitive Skills Development,Functional Activities,Home Exercise Program,Joint Protection, Manual Therapy,Education, Neurodevelopment Treatment, Self-Care,Stretching/ Flexibility Activities, Therapeutic Activities, Therapeutic Exercises,Sensory Re-education Modalities As Needed,As Prescribed Types of Modalities E-Stim,Functional Stimulation (FES),Ice Massage,T.E.N. Stimulation,TENS Placement/ Application,Other Additional Types of Modalities Heat/Contrast Baths/Paraffin bath Patient Instruction Home Exercise Program,Plan of Care,Questions/Concerns Suggested Referrals Speech Therapy Sensory Assessment Sensory Profile2 Functional Wrist/Hand Scan Hand Side OT Outpatient Muscle Testing Start: 07/20/19 12:35 Freq: Status: Active Protocol: Document 08/24/19 10:32 AMS (Rec: 08/24/19 10:36 AMS [email or web address]) Wrist Strength Wrist Manual Muscle Testing Left Flexion (C7) 4 Good Extension (C6) 4+ Good+ Ulnar Deviation 4+ Good+ Radial Deviation 4- Good- Comments Strength Remeasured 08/10/19 07/20/19 Measurements: Flexion 4/5 MMT Extension 4-/5 MMT UD 4-/[address] 3+/5 MMT Right Flexion (C7) 4 Good Extension (C6) 4 Good Ulnar Deviation 4 Good Radial Deviation 4 Good Comments Strength Remeasured 08/10/19 07/20/19 Measurements: Flexion 4/5 MMT Extension 3+/5 MMT UD 3+/[address] 3+/5 MMT Slimer/Hand Strength Slimer/Hand Strength Left Slimer Dynamometer II 18.0 Lateral Pinch Strengh (lbs) 8.0 Palmar Pinch Strength (lbs) 8.7 Comments L Slimer Strength Norms 35-39 = 66.3 +/- 11.7 pounds of force (Interpretation = > 4+ SD below the mean) L Lateral Pinch Strength Norms 35-39 = 16.0 +/- 2.7 pounds of force (Interpretation = > 2 + SD below the mean) L 3-jaw Pinch Strength Norms 35-39 = 17.1 +/- 3.4 pounds of force (Interpretation = > 2+ SD below the mean) Right Slimer Dynamometer II 30.0 Lateral Pinch Strengh (lbs) 8.0 Palmar Pinch Strength (lbs) 9.0 Comments R Slimer Strength Norms 35-39 = 74.1 +/- 10.8 pounds of force (Interpretation = > 4+ SD below the mean) R Lateral Pinch Strength Norms 35-39 = 16.6 +/- 2.0 pounds of force (Interpretation = > 4 + SD below the mean) R 3-jaw Pinch Strength Norms 35-39 = 17.5 +/- 4.2 pounds of force (Interpretation = > 2+ SD below the mean) OT Outpatient Treatment Note - Adult Start: 06/21/19 13:27 Freq: Status: Active Protocol: Document 12/26/19 09:41 AMS (Rec: 12/26/19 09:45 AMS [id number]) OT Outpatient Adult Treatment Note Visit Information Plan of Care Dates 08/10/19-09/21/2019 Insurance Information [employer] - Adult Setting Treatment Setting Outpatient Care Visit Type Note Type Discharge Summary - Subjective Observations Katja has not been seen by outpatient OT since 08/24/19; recommend d/c from outpatient OT at this time. Therapist to re-evaluate as deemed appropriate by PCP. - Objective Short Term Goals GOALS MET MMT left wrist extension 4/5. *MET 08/10/19= 4+/5 MMT MMT right wrist extension 4/5. *MET 08/10/19= 4/5 MMT Will avg 10.6+ pounds of force w/ R lateral pinch strength testing. *MET 08/10/19= avg 12. 2# of force GOALS DISCHARGED OF 12/26/[address] 4/5. Patient will present with increased success with object manipulation tasks; this will be evidenced by Katja averaging 41.7+ pounds of force with right implementation consultant strength testing. Patient will present with increased success with object manipulation tasks; this will be evidenced by Katja averaging 31.2+ pounds of force with left implementation consultant strength testing. Senior Care Goals 1. Katja will be modified independent with execution of UE home exercise program utilizing provided written and visual instructions from therapist. 12/26/19= mod I w/ HEP at time of last visit (08/24) GOALS DISCHARGED OF 12/26/19 Katja will present with increased motor planning of the preferred hand; this will be evidenced by her ability to complete 9-Hole Peg Test within 2 standard deviations above the mean (22.6 seconds or less). GOALS MET Opposed thumb to each digit pad B x 2 cycles w/ EC. *MET 07/09/19 Executed B chain links x 2 cycles w/ EC with increased time. *MET 07/27/19 Able to agrawal 5 dice w/ preferred hand x 10 trials without dropping any dice w/ increased concentration. *MET 08/10/19 Executed PROM wrist flex/ext stretch x 1 fror 10 sec w/ elbow in ext, w/ stretching sensation B. *MET 08/10/19 - - Assessment Assessment of Improvement Katja has not been seen by outpatient OT since 08/24/19; recommend d/c from outpatient OT at this time. Therapist to re-evaluate as deemed appropriate by PCP. - Plan Therapy Recommendations Discharge from Occupational Therapy
== END 2019-12-31 08:53 ==
LOC: OT 09:30
PROVIDERS: PCP Internal Medicine; Visit Provider Internal Medicine
DX: R29.818 Other symptoms and signs involving the nervous system (principal); R27.8 Other lack of coordination
CPT/HCPCS: 97110; 97112; 97165; 97530

== ENCOUNTER → 2019-09-07 07:35 | Outpatient (CLI) | payer OTHER, MEDICAID, SELFPAY ==
[2019-09-07 08:15] LABS: Platelet Count 186 X10^3/uL (150-400)
[2019-09-07 08:26] LABS: Alanine Aminotransferase 14 IU/L (<35); Albumin 4.2 g/dL (3.5-5.0); Albumin Globulin Ratio 1.4 (1.0-2.8); Alkaline Phosphatase 64 U/L (38-126); Aspartate Aminotransferase 22 IU/L (14-36); Bilirubin Total 0.7 mg/dL (0.2-1.3); Bilirubin Unconjugated 0.7 mg/dL (0.0-1.1); HEMOLYSIS < 15 (0-50); Total Protein 7.2 g/dL (6.3-8.2)
[2019-09-11 13:52] LABS: Valproic Acid (Depakene) Total < 12.5 mg/L (50.0-100.0)
== END ==
PROVIDERS: PCP Internal Medicine; Referring Provider Specialist; Visit Provider Specialist
DX: G43.119 Migraine with aura, intractable, without status migrainosus (principal); R55 Syncope and collapse
CPT/HCPCS: 36415; 80076; 80164; 85049

== ENCOUNTER 2019-10-02 12:02 | Outpatient (RCR) | payer OTHER, MEDICAID, SELFPAY ==
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
== END 2020-01-22 09:08 ==
LOC: SP 12:02
PROVIDERS: PCP Internal Medicine; Referring Provider Internal Medicine; Visit Provider Internal Medicine
DX: G31.84 Mild cognitive impairment of uncertain or unknown etiology (principal)
CPT/HCPCS: 92523

== ENCOUNTER 2020-01-09 08:57 | Emergency (ER) | payer OTHER, MEDICAID, SELFPAY ==
[2020-01-09 09:08] VITALS: BP 135/93; PULSE 75; RESP 14; TEMP 37; O2SAT 98; BMI 70.2
[2020-01-09 09:27] VITALS: BP 135/93; PULSE 75; RESP 12; O2SAT 98
[2020-01-09] MEDS: KETOROLAC 60 MG/2 ML VIAL 30 MG IM (09:32)
[2020-01-09] MEDS: CLINDAMYCIN 150 MG CAPSULE 300 MG PO (09:33)
[2020-01-09] MEDS: OXYCODONE/ACETAMINOPHEN 5/325 TABLET 1 TAB PO (09:33)
--- NOTE | 2020-01-09 09:37 | ED.DENTAL ---
HPI - Dental/Oral General Chief complaint: Dental/Oral Stated complaint: INFECTION IN MOUTH Time Seen by Provider: 01/09/20 09:06 Source: patient Mode of arrival: Family Vehicle Limitations: other History of Present Illness HPI Narrative: 39-year-old otherwise healthy woman presents with increasing pain around tooth 6. This is been a problem previously she had been scheduled to have it pulled back in September and all appointments were canceled due to Covid. She started noting increasing pain on the and was started on amoxicillin by her primary care physician. Today she notes that the pain has not improved and she now has some swelling on extending up in the right maxilla. She denies fevers or chills, cough, diarrhea, vomiting, chest pain, shortness of breath,, throat pain or adenopathy. Related Data Home Medications Medication Instructions Recorded Confirmed fluoxetine 20 mg capsule 20 mg PO DAILY 12/06/18 07/17/19 albuterol sulfate 90 mcg/actuation 1 inhalation INHALATION Q4-6H PRN 06/15/19 07/17/19 breath activated powder inhaler Previous Rx's Medication Instructions Recorded clobetasol 0.05 % topical ointment 1 applictn TOP BEDTIME #30 gram 12/06/18 medroxyprogesterone 10 mg tablet 10 mg PO DAILY #10 tab 06/15/19 amoxicillin 500 mg PO BID #14 cap 08/12/19 naproxen 500 mg PO BID PRN #30 tab 08/12/19 clindamycin HCl 300 mg PO TID #21 cap 01/09/20 oxycodone-acetaminophen 1 tab PO Q6H PRN #20 tab 01/09/20 Allergies Allergy/AdvReac Type Severity Reaction Status Date / Time No Known Drug Allergies Allergy Verified 07/17/19 16:14 Review of Systems Review of Systems ROS Unobtainable: All systems reviewed & are unremarkable except as noted in HPI and below Patient History Medical History Anxiety (Chronic ~2012) Carpal tunnel syndrome (Chronic ~2000) Chicken pox (Resolved ~1987) Depression (Chronic ~2012) Headache (Chronic ~2012) Hearing loss (Chronic) Heavy menstrual period (Chronic ~2018) History of bipolar disorder (Chronic ~2012) History of sterilization procedure (Resolved) Irregular menstrual cycle (Chronic ~1987) Migraines (Chronic ~2012) Painful menstrual periods (Chronic ~2018) PTSD (post-traumatic stress disorder) (Chronic ~2012) Restless leg syndrome (Chronic ~2018) Scoliosis (Chronic ~1997) Seizure (Resolved ~1981) Smoker (Chronic) Surgical History Anesthesia (Resolved) H/O nephrolithotomy with removal of calculi (Resolved) History of ankle surgery (Resolved ~2012) Hx of cholecystectomy (Resolved ~2016) Family History Father Colon cancer Brother Mental health problem Grandmother Diabetes mellitus Mental health problem Dementia Social History Smoking Status: Current every day smoker alcohol intake: former substance use type: marijuana Smoking Status: Current every day smoker alcohol intake frequency: a few times a week Substance Use Type: marijuana Exam Narrative Exam Narrative: General: Alert appropriate in no acute distress ENT: Tooth 6. Has a minor fracture. There is no obvious pointing abscess or drainage. There is some fullness appreciated over the maxilla. She has no cervical adenopathy. Respiratory: Able to speak in full sentences, no obvious respiratory distress Skin: No obvious rashes, warm and dry Neurologic: Grossly intact no obvious asymmetries or abnormalities Psych, appropriate insight and affect, cooperative Initial Vital Signs Initial Vital Signs: Vital Signs Temperature 98.6 F 01/09/20 09:08 Pulse Rate 75 01/09/20 09:08 Respiratory Rate 14 01/09/20 09:08 Blood Pressure 135/93 H 01/09/20 09:08 Pulse Oximetry 98 01/09/20 09:08 Course Orders Ordered: Discontinued Medications Clindamycin HCl (Cleocin) 300 mg PO NOW ONE Stop: 01/09/20 09:17 Last Admin: 01/09/20 09:33 Dose: 300 mg Documented by: FREDDIE Ketorolac Tromethamine (Toradol) 30 mg IM NOW ONE Stop: 01/09/20 09:17 Last Admin: 01/09/20 09:32 Dose: 30 mg Documented by: FREDDIE Oxycodone/Acetaminophen (Percocet 5/325) 1 tab PO NOW ONE Stop: 01/09/20 09:17 Last Admin: 01/09/20 09:33 Dose: 1 tab Documented by: ZGELEYN Vital Signs Vital signs: Vital Signs - 8 hr 01/09/20 09:08 01/09/20 09:27 Temperature 98.6 F Pulse Rate 75 75 Respiratory Rate 14 12 Blood Pressure 135/93 H Blood Pressure [Left Arm] 135/93 H Pulse Oximetry 98 98 MDM - Dental/Oral MDM Narrative Medical decision making narrative: Dental abscess without obvious drainage. Feels that she is getting worse after 3 days of amoxicillin. Will change antibiotics to clindamycin. Pain control with Percocet and Aleve. Follow-up with [facility] for definitive care Discharge Plan Departure Patient Disposition: Home Clinical Impression: Dental infection Instructions: DI for Tooth Abscess Activity Restrictions/Additional Instructions: Thank you for coming in today. Dental infections can be so painful. In the emergency department your given 30 mg of Toradol as a shot along with a single Percocet. I am going to suggest that you stop your amoxicillin as it seems to be ineffective. Please start clindamycin 300 mg 3 times a day for 7 days. For pain control, please use 2 Aleve in the morning and 2 Aleve at night for baseline pain control. For pain beyond that you can use 1-2 Percocet every 6 hours. Please be aware this is a narcotic, it can be addicting, it will cause constipation and you should not be driving or making significant decisions while taking narcotics. Both prescriptions have been electronically transmitted to [facility] in [place] and should be available for picker / packer shortly. Please continue to try to contact [facility] for follow-up and definitive care of your dental infection Prescriptions: New clindamycin HCl 300 mg capsule 300 mg PO TID Qty: 21 RF: 0 oxycodone-acetaminophen 5-325 mg tablet 1 tab PO Q6H PRN (Reason: pain) Qty: 20 RF: 0 No Action fluoxetine 20 mg capsule 20 mg PO DAILY RF: 0 clobetasol 0.05 % ointment 1 applictn TOP BEDTIME Qty: 30 RF: 0 albuterol sulfate 90 mcg/actuation aerosol powdr breath activated 1 inhalation INHALATION Q4-6H PRNRF: 0 medroxyprogesterone 10 mg tablet 10 mg PO DAILY Qty: 10 RF: 0 amoxicillin 500 mg capsule 500 mg PO BID Qty: 14 RF: 0 naproxen 500 mg tablet 500 mg PO BID PRN (Reason: pain) Qty: 30 RF: 0 Referrals: Sil Espinosa MD [Primary Care Provider] -
[2020-01-09 09:49] VITALS: BP 129/88; PULSE 71; RESP 12; O2SAT 99
== END 2020-01-09 09:50 | disposition home or self-care (01) ==
PROVIDERS: Emergency Provider Emergency Medicine; PCP Internal Medicine
DX: K04.7 Periapical abscess without sinus (principal)
CPT/HCPCS: 96372; 99283; J1885

== ENCOUNTER → 2020-02-12 08:16 | Outpatient (CLI) | payer OTHER, MEDICAID, SELFPAY ==
[2020-02-12 09:08] LABS: Add Manual Diff / Slide Review NO; Basophils Absolute Auto 0 /uL (0-100); Basophils Percent Auto 0.9 % (0-2); Eosinophils Absolute Auto 100 /uL (0-450); Eosinophils Percent Auto 1.1 % (2-4); Hematocrit 39.5 % (36-46); Hemoglobin 13.4 g/dL (12.0-16.0); Lymphocytes Absolute Auto 1800 /uL (1100-4500); Lymphocytes Percent Auto 35.6 % (25-40); Mean Corpuscular Hemoglobin 29.4 PG (26-34); Mean Corpuscular Volume 86.6 fL (80-100); Monocytes Absolute Auto 400 /uL (0-900); Monocytes Percent Auto 7.5 % (3-14); Neutrophils Absolute Auto 2800 /uL (1500-7000); Neutrophils Percent Auto 54.9 % (50-75); Platelet Count 186 X10^3/uL (150-400); Red Blood Cell Count 4.56 X10^6/uL (4.0-5.2); Red Cell Distribution Width 13.1 % (11.6-14.8); White Blood Cell Count 5.1 X10^3/uL (4.5-11.0)
[2020-02-12 09:32] LABS: Alanine Aminotransferase 22 IU/L (<35); Albumin 4.2 g/dL (3.5-5.0); Albumin Globulin Ratio 1.5 (1.0-2.8); Alkaline Phosphatase 71 U/L (38-126); Aspartate Aminotransferase 23 IU/L (14-36); BUN Creatinine Ratio 20.8 (6-22); Bilirubin Total 0.6 mg/dL (0.2-1.3); Blood Urea Nitrogen 15 mg/dL (7-17); Calcium 9.5 mg/dL (8.4-10.2); Carbon Dioxide 28 mmol/L (22-32); Chloride 104 mmol/L (98-107); Cholesterol 155 mg/dL (140-199); Estimated Glomerular Filt Rate > 60.0 mL/min (>60); Globulin 2.8 g/dL (1.7-4.1); Glucose 89 mg/dL (70-100); HDL Cholesterol 76 mg/dL (40-60); HEMOLYSIS < 15 (0-50); LDL Cholesterol Calculated 58 mg/dL (<100); Potassium 4.5 mmol/L (3.4-5.1); Sodium 137 mmol/L (137-145); Triglycerides 106 mg/dL (35-150)
[2020-02-13 05:11] LABS: Valproic Acid (Depakene) Total < 4 ug/mL (50-100)
== END ==
PROVIDERS: PCP Registered Nurse; Referring Provider Registered Nurse; Visit Provider Registered Nurse
DX: E66.9 Obesity, unspecified (principal); N92.0 Excessive and frequent menstruation with regular cycle; G43.909 Migraine, unspecified, not intractable, without status migrainosus
CPT/HCPCS: 36415; 80053; 80061; 80164; 85025

== ENCOUNTER → 2020-10-13 13:59 | Outpatient (CLI) | payer OTHER, MEDICAID, SELFPAY ==
[2020-10-13 14:23] LABS: Add Manual Diff / Slide Review NO; Basophils Absolute Auto 100 /uL (0-100); Basophils Percent Auto 0.6 % (0-2); Eosinophils Absolute Auto 100 /uL (0-450); Hematocrit 29.8 % (36-46); Lymphocytes Absolute Auto 2600 /uL (1100-4500); Lymphocytes Percent Auto 30.6 % (25-40); Mean Corpuscular HGB Conc 33.4 % (30-36); Mean Corpuscular Hemoglobin 28.8 PG (26-34); Mean Corpuscular Volume 86.1 fL (80-100); Monocytes Absolute Auto 600 /uL (0-900); Monocytes Percent Auto 7.5 % (3-14); Neutrophils Absolute Auto 5000 /uL (1500-7000); Neutrophils Percent Auto 60.3 % (50-75); Platelet Count 248 X10^3/uL (150-400); Red Blood Cell Count 3.47 X10^6/uL (4.0-5.2); Red Cell Distribution Width 14.2 % (11.6-14.8); White Blood Cell Count 8.3 X10^3/uL (4.5-11.0)
== END ==
PROVIDERS: PCP Registered Nurse; Referring Provider Specialist; Visit Provider Specialist
DX: N92.0 Excessive and frequent menstruation with regular cycle (principal)
CPT/HCPCS: 36415; 85025

== ENCOUNTER → 2020-12-03 10:32 | Outpatient (CLI) | payer OTHER, MEDICAID, SELFPAY ==
[2020-12-03 11:10] LABS: COVID19 -Nasal RAPID Negative (Negative)
== END ==
PROVIDERS: PCP Registered Nurse; Visit Provider Specialist
DX: Z01.812 Encounter for preprocedural laboratory examination (principal); Z20.822 Contact with and (suspected) exposure to COVID-19
CPT/HCPCS: 87635

== ENCOUNTER 2020-12-04 08:45 | Inpatient (IN) | payer OTHER, MEDICAID, SELFPAY ==
[2020-12-02 14:59] VITALS: BMI 34.7
[2020-12-04] VITALS (22 sets, daily range): BP systolic 91–137; BP diastolic 58–87; PULSE 67–96; RESP 10–18; TEMP 35.6–36.8; O2SAT 92–100; BMI 35.0
--- NOTE | 2020-12-04 | PATH_ITS ---
[facility] Accession Number: [id number] . 01 Material submitted: . uterus - UTERUS; RIGHT FALLOPIAN TUBE . 02 Diagnosis: Uterus, Right Fallopian Tube, Hysterctomy and Right Salpingectomy (Weight 65 grams): Endocervix with prominent Nabothian gland cysts; negative for glandular dysplasia or malignancy. Dys-synchronous endometrium; negative for glandular hyperplasia, cytologic atypia or malignancy. Myometrium with no significant histomorphologic abnormality. Uterine serosa with anterior wall adhesions, nonspecific. Complete cross-sections of segment of fallopian tube x1; negative for atypia or malignancy. [facility] 12/09/2020 1540 Local . 02 Electronically signed: . Jayne Alfaro MD, Pathologist NPI- [id number] . 01 Gross description: . The specimen is received in formalin, labeled uterus, right fallopian tube and consists of a 65-gram uterus measuring 8.5 cm from superior fundus to lower uterine segment by 6.0 cm from cornu to cornu by 4.0 cm from anterior to posterior. The serosa is hoffman-pink and smooth with focal fibrinous adhesions on the anterior uterus. The specimen is bivalved to reveal a hoffman-pink herringbone and cystic endocervical mucosa. The endometrial cavity measures 4.0 x 2.5 cm and displays a hoffman-pink hemorrhagic and focally ragged endometrium measuring 0.2 cm in thickness. The myometrium is hoffman-pink and trabeculated measuring 2.1 cm in thickness. Also received is a detached fallopian tube measuring 3.0 cm in length by 0.5 cm in diameter with a hoffman-pink smooth serosa. Sectioning reveals a hoffman mucosa and a lumen measuring 0.2 cm in diameter. [employer] sections are submitted. . A1: anterior lower uterine segment. A2: posterior lower uterine segment. A3-A4: anterior uterus. A5-A6: posterior uterus. A7: fallopian tube. ([id number]) /MRV 12/05/2020 1117 Local . 02 Pathologist provided ICD-10: N92.0, N39.3, N81.10, D64.9 . 02 CPT . 685571 Performed at: 01 [facility] [address] [place] [address], [place], [place] [id number] MD Vishnu Jalloh MD Phone: [phone] Performed at: 02 [facility] [place] [id number] [place] [id number] MD Larissa Garibay MD Phone: [phone]
--- NOTE | 2020-12-04 09:12 | PM.PREOP ---
Pre-operative Note COVID-19 COVID-19 status: Negative Result date/Date tested (Pos, Neg/Pending): 12/03/20 Interval Note History & Physical reviewed/Exam performed by Physician: Yes Changes to H&P: No
[2020-12-04] MEDS: ACETAMINOPHEN 325 MG TABLET 975 MG PO (09:28)
[2020-12-04] MEDS: LACTATED RINGERS 1,000 ML 42 ML IV ×2 (09:30→12:15)
--- NOTE | 2020-12-04 09:35 | SUR.PREOP ---
Order from Dr Wilks to not do POC test.
[2020-12-04] MEDS: CEFAZOLIN 1 GM VIAL 2 GM IV (09:55)
--- NOTE | 2020-12-04 10:24 | SUR.OPER ---
Lithotomy on padded OR bed. [place] Pad Positioner under torso. Head on pillow, arms padded and tucked at sides. Legs secured in padded yellow fins stirrups.
[2020-12-04] MEDS: BUPIVACAINE 0.5% W/ EPI (PF) 30 ML VIAL INJ (10:46)
[2020-12-04] MEDS: LIDOCAINE 1% W/EPI 20 ML INJ (12:22)
--- NOTE | 2020-12-04 13:05 | P.OP_ITS ---
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 Post-op diagnosis: same Procedure & Clinicians Procedure: Laparoscopy followed by laparotomy with supracervical hysterectomy, right salpingectomy, anterior repair with TVT exact suburethral sling Same procedure as scheduled: No (Adhesions prevented laparoscopic procedure so open procedure was performed) Indications: Menorrhagia of with urinary incontinence Surgeon: Danna Wilks Ux Consultant: Magali Mccann Click Yes if Unassisted: No Anesthesia Type: General Operative Notes Findings: Severe adhesions of the sigmoid colon to the anterior abdominal wall for its entire length from right lower quadrant to upper quadrant and down the left lower quadrant. Normal appearing uterus and ovaries, segments fallopian tubes post tubal ligation. Cystocele with hypermobile urethra. Closure Type: primary Specimen(s): other (Uterus above the level bladder, right fallopian tube segment) Prosthetic devices, grafts, tissues, transplants, or devices: TVT exact retropubic suburethral sling Applied: catheter (Riggs) and other (Vaginal packing) Estimated Blood Loss (mL): 100 Blood products transfused: none Procedure in detail: Patient was brought to the operating room where she underwent general anesthesia. She was placed in low [facility] stirrups with arms tucked and prepped and draped in the usual sterile fashion. A Riggs catheter was placed. Warming was in place. Pulsatile stockings in place and functional. A check system was reviewed with the staff in the room prior to beginning the case. A single-tooth tenaculum was placed on the anterior lip of the cervix and the cervix was dilated to a #6 Hegar dilator and a uterine manipulator placed through the cervix into the uterus. The balloon was inflated with 3 cc of saline. Next the area of the umbilical incision was injected with 0.5% Marcaine with epinephrine. Due to the extensive scarring on the abdomen decision was made to dissect down to the fascial layer which was held with 2 Kockers a small incision made and the Veress needle placed. Confirmation of placement was performed by drawing back on the syringe and fluid flowing freely through the veress needle. The CO2 was attached to the veress needle and the abdomen insufflated with 3 L of CO2. A 5 mm trocar was placed with the camera through the trocar under direct visualization. There is no apparent damage to internal structures with placement of the trocar. However due to the extensive adhesions even after trying to place a 2nd 5 mm trocar under direct visualization decision was made that we could not do any further surgery because we could not place trocars in the appropriate places due to the adhesions of the sigmoid to the anterior abdominal wall throughout the abdomen. The CO2 was allowed to escape and the trocars removed. A Pfannenstiel incision was made with a scalpel which was carried down to the fascial layer. Bleeding was controlled Bovie. Fascial layer was incised and the midline attachments were superiorly and inferiorly. Careful dissection allowed entry into the abdomen through the perineum. Some minor dissection was performed of omentum to the anterior abdominal wall. With movement of the uterine manipulator the uterus was elevated pass the scar tissue allowing the cornea to be grasped. The right tubal remnant was grasped with a Ramila and removed with the PK device cauterizing and cutting the mesosalpinx. The left tubal remnant was involved with significant scar tissue with the bowel so only a small portion was removed not the entirety. The PK was used to cauterize and cut the utero-ovarian ligaments and down the broad ligaments. Additional bites down the broad ligament was performed by clamping, cutting and suturing with 0 Vicryl suture. There was an adhesion of the bladder to the anterior uterus that was lysed. The bladder was pushed somewhat down the cervix. The uterus was amputated with cautery. The cervical canal was cauterized with the Bovie. Bleeding on the cervix was controlled with suture and cautery. The cervix was closed suturing the front to the back with [id number] sutures of 0 Vicryl suture. The perineum was sutured over the stump with 2 0 Vicryl suture. Adequate stasis was noted. The abdomen was irrigated. The perineum of the anterior abdominal wall was closed with 2 0 Vicryl suture. The fascial layer was closed with 1. Vicryl suture starting at each corner and working towards the midline. The incision was irrigated. Adequate hemostasis obtained with the Bovie. The adipose layer was closed with interrupted 3-0 Vicryl suture. Skin was closed with 4-0 Vicryl subcuticular suture. The incision was treated with Steri-Strips. Next the procedure was switched to vaginal. The area over the cystocele was in injected with a 1-1 dilute solution of 1% lidocaine with epinephrine. Incision was made with a scalpel over the cystocele and dissection was undertaken laterally with blunt and sharp dissection. Plication sutures of 0 Vicryl suture were placed over the cystocele. The vaginal incision was closed with 2 0 Vicryl suture in a running stitch. An incision was made over the mid urethra with a scalpel. The incision was extended laterally. The suprapubic exit sites were marked with a marking pen. The needles attached to the sling were placed from the bottom up and left in place. The catheter was removed and 300 mL of saline were placed in the bladder and cystoscopy was performed. A 70?? scope followed by a 0?? scope were used to look at the bladder and the urethra was no damage apparent with placement of the needles. Both ureters were seen to be functional. The graft was brought up loosely under the mid urethra. With sharp pressure against the bladder there was some leakage of urine. The plastic sheath was removed. The graft was cut under the skin of the suprapubic sites. Skin was closed with Steri-Strips. The vaginal incision was closed with 2-0 vicryl suture. Patient went to recovery room in good condition. Counts of instruments and sponges were correct. Complications: none Post-operative Condition: stable Disposition: Acute Care Plan for aftercare: Routine post abdominal hysterectomy and sling procedure
[2020-12-04] MEDS: fentaNYL 100 MCG/2 ML INJ IV ×2 (13:14→13:23)
[2020-12-04] MEDS: OXYCODONE IR 5 MG TABLET PO ×2 (13:33→15:03)
--- NOTE | 2020-12-04 14:15 | SUR.PHASEI ---
PACU: REPORT GIVEN TO NHAN Sierra RN. ALL QUESTIONS ANSWERED TO SATISFACTION. PATIENT TRANSPORTED UP TO RM 225 ON 4L/NC PORTABLE TANK WITHOUT S/SX'S OF DISTRESS AND WITH VSS. HANDOFF AT BEDSIDE WITH NHAN MCDONALD PRESENT, CHECKED PERIPAD AND SURGICAL SITE DRSGS TOGETHER. BED IN LOW LOCKED POSITION, SCD'S ON.
[2020-12-04] MEDS: LACTATED RINGERS 1,000 ML 100 ML IV (15:04)
--- NOTE | 2020-12-04 15:19 | PC.NURSE ---
pt received to room 225 post op - lungs dim but clear oxygen level 96% on 2L down from 4L- OXYCODONE 5MG GIVEN FOR C/O INCISIONAL PAIN
[2020-12-04] MEDS: MORPHINE 2 MG/ML INJ IV ×2 (16:31→20:39)
[2020-12-04 16:46] LABS: Add Manual Diff / Slide Review NO; Basophils Absolute Auto 100 /uL (0-100); Basophils Percent Auto 0.4 % (0-2); Eosinophils Absolute Auto 100 /uL (0-450); Eosinophils Percent Auto 0.6 % (2-4); Hemoglobin 12.3 g/dL (12.0-16.0); Lymphocytes Absolute Auto 2500 /uL (1100-4500); Lymphocytes Percent Auto 16.1 % (25-40); Mean Corpuscular HGB Conc 31.5 % (30-36); Mean Corpuscular Hemoglobin 26.2 PG (26-34); Mean Corpuscular Volume 83.2 fL (80-100); Monocytes Absolute Auto 1500 /uL (0-900); Monocytes Percent Auto 9.6 % (3-14); Neutrophils Absolute Auto 11400 /uL (1500-7000); Neutrophils Percent Auto 73.3 % (50-75); Platelet Count 277 X10^3/uL (150-400); Red Blood Cell Count 4.68 X10^6/uL (4.0-5.2); Red Cell Distribution Width 13.9 % (11.6-14.8); White Blood Cell Count 15.5 X10^3/uL (4.5-11.0)
[2020-12-04] MEDS: BUDESONIDE 0.5 MG/2 ML NEB INH (20:26)
[2020-12-04] MEDS: DOCUSATE 250 MG CAPSULE PO (20:39)
--- NOTE | 2020-12-04 23:42 | RT ---
Place pt on 1 LPM NC at 2036 post pulmicort tx. Pt SpO2 98%, no respiratory distress.
[2020-12-05] VITALS (10 sets, daily range): BP systolic 113–119; BP diastolic 66–84; PULSE 57–81; RESP 14–18; TEMP 36.3–37.1; O2SAT 91–98
[2020-12-05] MEDS: MORPHINE 2 MG/ML INJ IV ×2 (00:54→04:35)
[2020-12-05] MEDS: LACTATED RINGERS 1,000 ML 100 ML IV ×2 (01:00→11:10)
[2020-12-05 04:51] LABS: Add Manual Diff / Slide Review NO; Basophils Absolute Auto 0 /uL (0-100); Eosinophils Absolute Auto 0 /uL (0-450); Hematocrit 27.9 % (36-46); Hemoglobin 8.7 g/dL (12.0-16.0); Lymphocytes Absolute Auto 800 /uL (1100-4500); Lymphocytes Percent Auto 5.7 % (25-40); Mean Corpuscular HGB Conc 31.3 % (30-36); Mean Corpuscular Hemoglobin 24.2 PG (26-34); Mean Corpuscular Volume 77.4 fL (80-100); Monocytes Absolute Auto 1000 /uL (0-900); Monocytes Percent Auto 7.2 % (3-14); Neutrophils Absolute Auto 12200 /uL (1500-7000); Neutrophils Percent Auto 87.1 % (50-75); Platelet Count 208 X10^3/uL (150-400); Red Cell Distribution Width 19.3 % (11.6-14.8)
[2020-12-05] MEDS: KETOROLAC 30 MG/ML VIAL IV ×3 (07:46→19:25)
[2020-12-05] MEDS: DOCUSATE 250 MG CAPSULE PO ×2 (07:47→19:25)
[2020-12-05] MEDS: OXYCODONE IR 10 MG TABLET PO ×2 (07:47→20:25)
[2020-12-05] MEDS: DIVALPROEX ER 250 MG TAB 500 MG PO (08:53)
[2020-12-05] MEDS: FLUoxetine 20 MG CAPSULE 40 MG PO (08:55)
[2020-12-05] MEDS: BUDESONIDE 0.5 MG/2 ML NEB INH ×2 (09:14→19:41)
--- NOTE | 2020-12-05 12:56 | PM.PNPO.1 ---
Subjective Subjective Date Patient Seen: 12/05/20 Time Patient Seen: 12:00 Interval history: Patient was able to stand and brush her teeth and urinate post removal of Riggs catheter. She is feeling a little short of breath and weak with standing. Patient continues to have significant discomfort. She denies any nausea. Exam Vital Signs (past 8 hours): - 12/05/20 07:45 12/05/20 08:00 12/05/20 09:18 Temperature 98.4 F Pulse Rate 60 57 L Respiratory Rate 18 16 Blood Pressure 119/77 Pulse Oximetry 92 93 94 Oxygen Delivery Method Room Air Oxygen Flow Rate 0 Narrative Exam Narrative: Patient's abdomen is soft with appropriate tenderness. Her incisions are dry. Her vaginal packing was removed earlier today and had minimal blood on it. Extremities without edema and nontender. Objective Labs Result Diagrams: 12/05/20 04:14 Labs: Laboratory Results - last 24 hr 12/04/20 12/05/20 16:40 04:14 WBC 15.5 H 14.0 H RBC 4.68 3.60 L Hgb 12.3 8.7 L Hct 39.0 27.9 L MCV 83.2 77.4 L D MCH 26.2 24.2 L MCHC 31.5 31.3 RDW 13.9 19.3 H Plt Count 277 208 Neut % (Auto) 73.3 87.1 H Lymph % (Auto) 16.1 L 5.7 L [place] % (Auto) 9.6 7.2 Eos % (Auto) 0.6 L 0.0 L Baso % (Auto) 0.4 0.0 Neut # (Auto) 31042 H 65542 H Lymph # (Auto) 2500 800 L [place] # (Auto) 1500 H 1000 H Eos # (Auto) 100 0 Baso # (Auto) 100 0 PFSH Medical History Anxiety (~2012) Anxiety disorder Carpal tunnel syndrome (~2000) Chicken pox (~1987) Depression (~2012) Headache (~2012) Hearing loss Heavy menstrual period (~2018) History of bipolar disorder (~2012) History of sterilization procedure Irregular menstrual cycle (~1987) Menorrhagia Migraine Migraines (~2012) Obesity (BMI 30-39.9) Painful menstrual periods (~2018) PTSD (post-traumatic stress disorder) (~2012) Restless leg syndrome (~2018) Scoliosis (~1997) Seasonal allergies Seizure (~1981) Smoker Surgical History (Updated 12/04/20 @ 12:54 by Danna Wilks MD) Anesthesia H/O nephrolithotomy with removal of calculi History of ankle surgery (~2012) Hx of cholecystectomy (~2016) Family History Father Colon cancer Brother Mental health problem Grandmother Diabetes mellitus Mental health problem Dementia Social History household members: family Smoking Status: Current every day smoker Tobacco: How many years used: 24 quit status: quit date established (07/23/19 ) alcohol intake: current substance use type: former substance user and marijuana (former ) Assessment & Plan Post-op Assessment and plan (1) Status post abdominal supracervical subtotal hysterectomy: (2) History of suburethral sling procedure: (3) Acute on chronic blood loss anemia: Postoperative Procedures: Procedures Operation Date: 12/04/20 09:45 Actual Procedures Side Surgeon p Diagnostic laparoscopy with laparotomy supracervical hysterectomy, right salpingectomy Danna Wilks MD s Anterior Repair Danna Wilks MD s TVT exact sling Danna Wilks MD Postoperative day: 1 Postoperative status: marginal pain control and anemia Postoperative plan: routine post-op care Postoperative plan narrative: Patient is stable post abdominal supracervical hysterectomy with anterior repair and TVT suburethral sling. She passed her bladder trial. She continues to have pain and some fatigue and dizziness with prolonged standing likely from her anemia. Will DC patient's IV as she is tolerating regular diet. Monitor for ability we discharge either later today or tomorrow. Time Spent With Patient Time with patient: less than 15 minutes
[2020-12-05] MEDS: SODIUM CHLORIDE 0.9% FLUSH 10 ML IV ×2 (14:13→19:25)
[2020-12-05 16:11] LABS: Estimated Glomerular Filt Rate > 60.0 mL/min (>60)
[2020-12-06 01:35] VITALS: BP 120/65; PULSE 79; RESP 18; TEMP 36.4; O2SAT 95
[2020-12-06] MEDS: KETOROLAC 30 MG/ML VIAL IV ×2 (01:38→08:30)
[2020-12-06 01:48] VITALS: O2SAT 95
[2020-12-06 03:20] VITALS: BP 139/84; PULSE 60; RESP 18; TEMP 36.6; O2SAT 96
[2020-12-06 04:55] LABS: Add Manual Diff / Slide Review NO; Basophils Absolute Auto 0 /uL (0-100); Basophils Percent Auto 0.5 % (0-2); Eosinophils Absolute Auto 100 /uL (0-450); Eosinophils Percent Auto 0.6 % (2-4); Hematocrit 25.8 % (36-46); Hemoglobin 8.1 g/dL (12.0-16.0); Lymphocytes Absolute Auto 2400 /uL (1100-4500); Lymphocytes Percent Auto 25.1 % (25-40); Mean Corpuscular HGB Conc 31.6 % (30-36); Mean Corpuscular Hemoglobin 24.4 PG (26-34); Mean Corpuscular Volume 77.3 fL (80-100); Monocytes Absolute Auto 700 /uL (0-900); Monocytes Percent Auto 7.7 % (3-14); Neutrophils Absolute Auto 6300 /uL (1500-7000); Neutrophils Percent Auto 66.1 % (50-75); Platelet Count 179 X10^3/uL (150-400); Red Blood Cell Count 3.34 X10^6/uL (4.0-5.2); Red Cell Distribution Width 18.8 % (11.6-14.8); White Blood Cell Count 9.5 X10^3/uL (4.5-11.0)
[2020-12-06 07:54] VITALS: PULSE 56; RESP 16; O2SAT 95
[2020-12-06] MEDS: BUDESONIDE 0.5 MG/2 ML NEB INH (07:54)
[2020-12-06 08:00] VITALS: BP 121/81; PULSE 75; RESP 16; TEMP 36.3; O2SAT 96; O2SAT 97
[2020-12-06] MEDS: FLUoxetine 20 MG CAPSULE 40 MG PO (09:21)
[2020-12-06] MEDS: OXYCODONE IR 10 MG TABLET PO (09:21)
[2020-12-06] MEDS: DOCUSATE 250 MG CAPSULE PO (09:21)
[2020-12-06] MEDS: DIVALPROEX ER 250 MG TAB 500 MG PO (09:21)
[2020-12-06] MEDS: SODIUM CHLORIDE 0.9% FLUSH 10 ML IV (09:25)
--- NOTE | 2020-12-06 09:31 | PM.DS.1 ---
History of Present Illness History of Present Illness Date Patient Seen: 12/06/20 Time Patient Seen: 09:31 Chief complaint: *OPB* Narrative: This patient is a 39-year-old postop day 2 status post abdominal supracervical hysterectomy, anterior repair, and TVT, pelvic organ prolapse and abnormal uterine bleeding. Surgery was attempted laparoscopically, but copious adhesive disease from prior surgeries necessitated conversion to laparotomy. The patient's postoperative course has been uncomplicated, and she is meeting all postoperative goals appropriately. She is stable for discharge with outpatient follow-up. Discharge Providers Provider Date of admission: 12/04/20 08:45 Discharge Date: 12/06/20 Primary care physician: GERALD White Consults: 12/04/20 14:22 Consult to Respiratory Therapy Evaluate & Treat Comment: h/o asthma; possible early COPD Physician Instructions: Evaluate and treat Discharge provider: Magali Mccann MD Summary Hospital Course Discharge Diagnosis: Status post abdominal supracervical hysterectomy with bilateral salpingectomy, anterior repair, TVT Hospital Course: This patient is a 39-year-old postop day 2 status post abdominal supracervical hysterectomy, anterior repair, and TVT, pelvic organ prolapse and abnormal uterine bleeding. Surgery was attempted laparoscopically, but copious adhesive disease from prior surgeries necessitated conversion to laparotomy. The patient's postoperative course has been uncomplicated, and she is meeting all postoperative goals appropriately. She is stable for discharge with outpatient follow-up. Status at Discharge Cognitive/behavioral status at discharge: oriented Functional status at discharge: independent ambulation Overall status at discharge: patient is progressing back to baseline Time Spent with Patient Time spent: Less than 30 minutes Exam Vital Signs (past 8 hours): - 12/06/20 01:35 12/06/20 01:48 12/06/20 03:20 Temperature 97.6 F 97.9 F Pulse Rate 79 60 Respiratory Rate 18 18 Blood Pressure 120/65 139/84 Pulse Oximetry 95 95 96 12/06/20 07:54 12/06/20 08:00 Temperature 97.3 F L Pulse Rate 56 L 75 Respiratory Rate 16 16 Blood Pressure 121/81 Pulse Oximetry 95 96 Oxygen Delivery Method Room Air Oxygen Flow Rate 0 Narrative Exam Narrative: Patient well-appearing, resting in bed and comfortable. Ambulating, voiding, passing flatus, tolerating p.o.. Good pain control. Resp Effort & Inspection: normal respiratory effort Auscultation: clear to auscultation bilaterally Cardio Rate: regular rate Rhythm: regular rhythm GI Palpation: soft and No tender External Female Exam: normal external appearance Objective Labs Result Diagrams: 12/06/20 04:32 12/05/20 15:59 Labs: Laboratory Results - last 24 hr 12/05/20 12/06/20 15:59 04:32 WBC 9.5 RBC 3.34 L Hgb 8.1 L Hct 25.8 L MCV 77.3 L MCH 24.4 L MCHC 31.6 RDW 18.8 H Plt Count 179 Neut % (Auto) 66.1 D Lymph % (Auto) 25.1 [place] % (Auto) 7.7 Eos % (Auto) 0.6 L Baso % (Auto) 0.5 Neut # (Auto) 6300 Lymph # (Auto) 2400 [place] # (Auto) 700 Eos # (Auto) 100 Baso # (Auto) 0 Creatinine 0.52 Estimated GFR > 60.0 PFSH Medical History Anxiety (~2012) Anxiety disorder Carpal tunnel syndrome (~2000) Chicken pox (~1987) Depression (~2012) Headache (~2012) Hearing loss Heavy menstrual period (~2018) History of bipolar disorder (~2012) History of sterilization procedure Irregular menstrual cycle (~1987) Menorrhagia Migraine Migraines (~2012) Obesity (BMI 30-39.9) Painful menstrual periods (~2018) PTSD (post-traumatic stress disorder) (~2012) Restless leg syndrome (~2018) Scoliosis (~1997) Seasonal allergies Seizure (~1981) Smoker Surgical History (Updated 12/04/20 @ 12:54 by Danna Wilks MD) Anesthesia H/O nephrolithotomy with removal of calculi History of ankle surgery (~2012) Hx of cholecystectomy (~2016) Family History Father Colon cancer Brother Mental health problem Grandmother Diabetes mellitus Mental health problem Dementia Social History household members: family Smoking Status: Current every day smoker Tobacco: How many years used: 24 quit status: quit date established (07/23/19 ) alcohol intake: current substance use type: former substance user and marijuana (former ) Discharge Assessment & Plan Assessment and Plan Assessment: Stable for discharge with outpatient follow-up Plan of Treatment: Routine follow-up Discharge Plan Discharge Plan Patient Disposition: Home Discharge orders & Medications Prescriptions: Continued fluoxetine 20 mg capsule 40 mg PO DAILY 30 Days Qty: 60 RF: 2 oxycodone-acetaminophen 5-325 mg tablet 1 tab PO Q4-6H PRN (Reason: pain) Qty: 30 RF: 0 albuterol sulfate 90 mcg/actuation aerosol powdr breath activated 1 inhalation INHALATION Q4-6H PRN (Reason: Shortness Of Breath) RF: 0 divalproex 500 mg tablet extended release 24 hr 500 mg PO DAILY RF: 0 sumatriptan succinate 100 mg tablet 100 mg PO PRN PRN (Reason: migranes) RF: 0 chlorhexidine gluconate 0.12 % mouthwash 15 ml BUCCAL BID Qty: 1500 RF: 0 fluticasone propionate 50 mcg/actuation spray,suspension 1 spray NASAL BID PRN (Reason: allergy symptoms) 30 Days Qty: 15.8 RF: 2 fluticasone propion-salmeterol 250-50 mcg/dose blister with device 1 inhalation INHALATION BID 30 Days Qty: 14 RF: 2 Follow up/Referrals: Danna Wilks MD [Physician] - As previously scheduled (Postop appointment is scheduled in 1 week) Anna Smith ARNP [Primary Care Provider] - Diet/Activity/Treatments Diet: Regular Activity: Nothing in vagina or lifting over 20 lb for 6 weeks Skin/Wound/Dressing Care Report to your healthcare provider any signs of infection, such as:: chills, fever, increased pain, unusual drainage and unusual redness Dressing: Leave large dressing in place until postop appointment. Other incisions can get wet just pat dry Visit Report/Discharge Packet Instructions: DI for Hysterectomy, DI for Laparoscopy Discharge Data Primary Care Provider: Anna Smith
--- NOTE | 2020-12-06 12:04 | CM.DANOTE ---
DCP: Case received, EMR reviewed and met with patient. Introduced self and role. Was able to obtain information regarding patient's baseline activity status before hospitalization, as well as her current living situation. DCP assessment completed with information currently available. Patient is a 39 year old female who admitted on 12-04 to the care of the [facility] team. PCP: GERALD Montgomery. Payer: confirmed: [email or web address]. Patient came to the hospital via private vehicle for a surgical procedure. She had cystole, secondary to having excessive menstruation. Patient also had anemia. Met with patient in her room. She had her surgery on . She is alert and oriented, independent at her baseline. She resides here in [place] in a camper on her mother's property. She indicated, her a month ago from liver cancer. She has no children. P: Patient has discharge orders for home with no needs. Ethel Fuentes RN/Speed Reading Teacher
--- NOTE | 2020-12-06 12:31 | PC.NURSE ---
pt independent in room and pain well controlled- plan is for discharge this shift and reviewed all discharge instructions and follow up care with with pt to her satisfaction- all questions answered
== END 2020-12-06 13:00 | disposition home or self-care (01) | DRG 513 ==
LOC: OR 08:49 → AC 08:49
PROVIDERS: Admitting Provider Specialist; PCP Registered Nurse; Referring Provider Specialist; Visit Provider Specialist
PROC: 0UT94ZL Resection of Uterus, Supracervical, Percutaneous Endoscopic Approach (ICD-10-PCS; principal; 2020-12-04 09:45)
PROC: 0UT90ZL Resection of Uterus, Supracervical, Open Approach (ICD-10-PCS; 2020-12-04 09:45)
PROC: 0TSD0ZZ Reposition Urethra, Open Approach (ICD-10-PCS; 2020-12-04 09:45)
DX: N92.0 Excessive and frequent menstruation with regular cycle (principal); D62 Acute posthemorrhagic anemia; N39.46 Mixed incontinence; N81.10 Cystocele, unspecified; F41.9 Anxiety disorder, unspecified; F31.9 Bipolar disorder, unspecified; G25.81 Restless legs syndrome; J44.9 Chronic obstructive pulmonary disease, unspecified; F17.210 Nicotine dependence, cigarettes, uncomplicated; K66.0 Peritoneal adhesions (postprocedural) (postinfection)
CPT/HCPCS: 36415; 57240; 57288; 58180; 82565; 85025; 94640; 94760; 94762; C1771; J0330; J0690; J1100; J1170; J1885; J2250; J2270; J2405; J2704; J2795; J3010

== ENCOUNTER → 2020-12-18 14:53 | Outpatient (CLI) | payer OTHER, MEDICAID, SELFPAY ==
[2020-12-04 14:29] VITALS: BMI 35.0
[2020-12-18 15:41] LABS: Add Manual Diff / Slide Review NO; Basophils Absolute Auto 100 /uL (0-100); Basophils Percent Auto 0.8 % (0-2); Eosinophils Absolute Auto 200 /uL (0-450); Eosinophils Percent Auto 2.2 % (2-4); Hematocrit 32.8 % (36-46); Hemoglobin 10.1 g/dL (12.0-16.0); Lymphocytes Absolute Auto 2400 /uL (1100-4500); Lymphocytes Percent Auto 22.4 % (25-40); Mean Corpuscular HGB Conc 30.9 % (30-36); Mean Corpuscular Hemoglobin 23.6 PG (26-34); Mean Corpuscular Volume 76.3 fL (80-100); Monocytes Absolute Auto 600 /uL (0-900); Monocytes Percent Auto 5.6 % (3-14); Neutrophils Absolute Auto 7200 /uL (1500-7000); Platelet Count 344 X10^3/uL (150-400); Red Blood Cell Count 4.29 X10^6/uL (4.0-5.2); White Blood Cell Count 10.5 X10^3/uL (4.5-11.0)
[2020-12-18 15:53] LABS: Appearance Urine UA SL CLOUDY; Bilirubin Urine UA NEGATIVE (NEGATIVE); Color Urine UA YELLOW; Glucose Urine UA NEGATIVE (Negative); Ketones Urine UA NEGATIVE (NEGATIVE); Leukocyte Esterase Urine UA 2+ (NEGATIVE); Nitrite Urine UA NEGATIVE (Negative); Occult Blood Urine UA 1+ (Negative); Protein Urine UA NEGATIVE (Negative); Specific Gravity Urine UA 1.025 (1.000-1.035); Urobilinogen Urine UA 0.2 E.U./dL (0.2)
[2020-12-18 16:06] LABS: RBC Urine 1-5/HPF (0-5/HPF)
[2020-12-18 16:07] LABS: Amorphous Sediment Urine 1+; Bacteria Urine Moderate (10-30); Culture Indicated Urine Specimen Cultured; Mucus Urine 1+ (Negative); Squamous Epithelial Cell Urine 1-5 /HPF (0-5/HPF); WBC Urine 10-30/HPF (0-5/HPF)
[2020-12-18 18:29] LABS: Alanine Aminotransferase 14 IU/L (<35); Albumin 3.7 g/dL (3.5-5.0); Albumin Globulin Ratio 1.2 (1.0-2.8); Alkaline Phosphatase 95 U/L (38-126); Aspartate Aminotransferase 21 IU/L (14-36); BUN Creatinine Ratio 23.2 (6-22); Blood Urea Nitrogen 13 mg/dL (7-17); Carbon Dioxide 25 mmol/L (22-32); Chloride 107 mmol/L (98-107); Estimated Glomerular Filt Rate > 60.0 mL/min (>60); Globulin 3.1 g/dL (1.7-4.1); Glucose 99 mg/dL (70-100); HEMOLYSIS < 15 (0-50); Potassium 3.9 mmol/L (3.4-5.1); Sodium 139 mmol/L (137-145); Total Protein 6.8 g/dL (6.3-8.2)
[2020-12-18 18:38] LABS: Bilirubin Total < 0.1 mg/dL (0.2-1.3)
[2020-12-19 03:03] LABS: Creatinine Urine Random 83.7 mg/dL
[2020-12-19 03:12] LABS: Microalbumi Creatinin Ratio Ur 16.7 ug/mg CR (<30); Microalbumin Urine Random 1.4 mg/dL (0-1.6)
== END ==
PROVIDERS: PCP Registered Nurse; Referring Provider Registered Nurse; Visit Provider Registered Nurse
DX: S37.009A Unspecified injury of unspecified kidney, initial encounter (principal); D64.9 Anemia, unspecified; R82.90 Unspecified abnormal findings in urine
CPT/HCPCS: 36415; 80053; 81003; 81015; 82043; 82570; 85025; 87086

== ENCOUNTER → 2020-12-29 10:30 | Outpatient (CLI) | payer OTHER, MEDICAID, SELFPAY ==
[2020-12-04 14:29] VITALS: BMI 35.0
--- NOTE | 2020-12-29 10:31 | DI.US.S_ITS ---
PROCEDURE: US RENAL COMPLETE INDICATIONS: evaluate bladder and kidneys; mixed urinary incontinence TECHNIQUE: Real-time scanning was performed of the kidneys and bladder, with image documentation. COMPARISON: None. FINDINGS: Kidneys: Kidneys are normal in size. Right kidney measures 10.8 cm long; left kidney measures 12.2 cm long. Right renal cortical thickness is 1.6 cm; left renal cortical thickness is 2.0 cm. No hydronephrosis or nephrolithiasis. No suspicious solid mass lesions. Bladder: Pre-void bladder volume is 86 mL. Post-void residual is 38 mL. Pre-void images demonstrate no intraluminal masses or stones. On pre-void images, neither of the ureteral jets are noted with color Doppler interrogation. (Of note, ureteral jets may not be detectable in up to 25% of cases due to insufficient differences in specific gravity between ureteral and bladder urine). Miscellaneous: No free pelvic fluid. IMPRESSION: No hydronephrosis. 38 cc postvoid residual. Dictated by: Ricardo Petersen M.D. on 12/29/2020 at 14:46 Approved by: Ricardo Petersen M.D. on 12/29/2020 at 14:47
== END ==
PROVIDERS: PCP Registered Nurse; Referring Provider Registered Nurse; Visit Provider Registered Nurse
DX: N81.11 Cystocele, midline (principal); N39.46 Mixed incontinence; N81.9 Female genital prolapse, unspecified
CPT/HCPCS: 76770

== ENCOUNTER 2021-02-13 18:33 | Emergency (ER) | payer OTHER, MEDICAID, SELFPAY ==
[2020-12-04 14:29] VITALS: BMI 35.0
[2021-02-13 18:55] VITALS: BP 129/69; PULSE 81; RESP 16; TEMP 36.9; O2SAT 98; BMI 34.9
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
--- NOTE | 2021-02-13 20:18 | DI.US.S_ITS ---
PROCEDURE: US PERIPH VENOUS LOW EXTREM RT INDICATIONS: PAIN, EDEMA TECHNIQUE: Real-time imaging, as well as color and pulse Doppler interrogation, were performed of the lower extremity deep veins from the inguinal ligament to the popliteal fossa. COMPARISON: None. FINDINGS: The common femoral, femoral and popliteal veins are normally compressible, and free of intraluminal thrombus. Color and pulse Doppler demonstrate normal phasic intraluminal flow. There is normal augmentation response to distal compression maneuver. IMPRESSION: No sonographic evidence of deep venous thrombosis in the right lower extremity. Dictated by: Tahir Schaefer M.D. on 02/13/2021 at 21:50 Approved by: Tahir Schaefer M.D. on 02/13/2021 at 21:51
[2021-02-13 20:50] LABS: Add Manual Diff / Slide Review NO; Basophils Absolute Auto 100 /uL (0-100); Basophils Percent Auto 0.8 % (0-2); Eosinophils Absolute Auto 200 /uL (0-450); Eosinophils Percent Auto 1.9 % (2-4); Hematocrit 31.8 % (36-46); Hemoglobin 9.8 g/dL (12.0-16.0); Lymphocytes Absolute Auto 1900 /uL (1100-4500); Mean Corpuscular HGB Conc 30.9 % (30-36); Mean Corpuscular Hemoglobin 22.9 PG (26-34); Monocytes Absolute Auto 800 /uL (0-900); Monocytes Percent Auto 9.8 % (3-14); Neutrophils Absolute Auto 5100 /uL (1500-7000); Neutrophils Percent Auto 63.5 % (50-75); Platelet Count 265 X10^3/uL (150-400); Red Cell Distribution Width 21.2 % (11.6-14.8)
[2021-02-13 21:07] LABS: Erythrocyte Sedimentation Rate 18 MM/HR (0-20); Hypochromasia 2+; Microcytosis 2+
[2021-02-13 21:18] LABS: D Dimer 277 ng/mL (<230)
[2021-02-13 21:52] LABS: Alanine Aminotransferase 17 IU/L (<35); Albumin 3.4 g/dL (3.5-5.0); Albumin Globulin Ratio 1.2 (1.0-2.8); Alkaline Phosphatase 96 U/L (38-126); Aspartate Aminotransferase 48 IU/L (14-36); BUN Creatinine Ratio 23.7 (6-22); Bilirubin Total 0.2 mg/dL (0.2-1.3); Blood Urea Nitrogen 14 mg/dL (7-17); Calcium 8.7 mg/dL (8.4-10.2); Carbon Dioxide 30 mmol/L (22-32); Chloride 109 mmol/L (98-107); Estimated Glomerular Filt Rate > 60.0 mL/min (>60); Globulin 2.9 g/dL (1.7-4.1); Glucose 94 mg/dL (70-100); HEMOLYSIS < 15 (0-50); Potassium 3.6 mmol/L (3.4-5.1); Sodium 142 mmol/L (137-145); Total Protein 6.3 g/dL (6.3-8.2)
[2021-02-13 21:57] LABS: C-Reactive Protein Quant 0.9 mg/dL (<1.0)
[2021-02-13 22:13] VITALS: PULSE 67; O2SAT 97
[2021-02-13 22:30] VITALS: PULSE 61; O2SAT 96
[2021-02-14 00:16] VITALS: BP 116/76; PULSE 88; RESP 19; O2SAT 98
== END 2021-02-14 00:17 | disposition home or self-care (01) ==
PROVIDERS: Emergency Provider Emergency Medicine; PCP Registered Nurse
DX: R60.0 Localized edema (principal); M79.604 Pain in right leg; Z87.828 Personal history of other (healed) physical injury and trauma
CPT/HCPCS: 36415; 80053; 85025; 85379; 85651; 86140; 93971; 99283; 99284

== ENCOUNTER 2021-05-05 12:24 | Inpatient (IN) | payer OTHER, MEDICAID, SELFPAY ==
[2020-12-04 14:29] VITALS: BMI 35.0
[2021-05-05] VITALS (25 sets, daily range): BP systolic 87–163; BP diastolic 49–91; PULSE 56–109; RESP 12–20; TEMP 36.1–38.3; O2SAT 91–100; BMI 31.5
[2021-05-05] MEDS: ONDANSETRON 4 MG/2 ML INJ IV ×2 (12:32→14:51)
[2021-05-05 12:45] LABS: Add Manual Diff / Slide Review NO; Basophils Absolute Auto 100 /uL (0-100); Basophils Percent Auto 0.4 % (0-2); Eosinophils Absolute Auto 0 /uL (0-450); Eosinophils Percent Auto 0.2 % (2-4); Hematocrit 41.5 % (36-46); Hemoglobin 13.2 g/dL (12.0-16.0); Lymphocytes Absolute Auto 1100 /uL (1100-4500); Lymphocytes Percent Auto 7.1 % (25-40); Mean Corpuscular HGB Conc 31.8 % (30-36); Mean Corpuscular Hemoglobin 25.9 PG (26-34); Mean Corpuscular Volume 81.3 fL (80-100); Monocytes Absolute Auto 700 /uL (0-900); Monocytes Percent Auto 4.5 % (3-14); Neutrophils Absolute Auto 13600 /uL (1500-7000); Neutrophils Percent Auto 87.8 % (50-75); Platelet Count 190 X10^3/uL (150-400); Red Cell Distribution Width 19.6 % (11.6-14.8); White Blood Cell Count 15.5 X10^3/uL (4.5-11.0)
[2021-05-05 12:50] LABS: Alanine Aminotransferase 16 IU/L (<35); Albumin 4.2 g/dL (3.5-5.0); Albumin Globulin Ratio 1.4 (1.0-2.8); Alkaline Phosphatase 99 U/L (38-126); Aspartate Aminotransferase 23 IU/L (14-36); BUN Creatinine Ratio 20.4 (6-22); Bilirubin Total 0.4 mg/dL (0.2-1.3); Blood Urea Nitrogen 11 mg/dL (7-17); Calcium 9.4 mg/dL (8.4-10.2); Carbon Dioxide 26 mmol/L (22-32); Chloride 106 mmol/L (98-107); Estimated Glomerular Filt Rate > 60.0 mL/min (>60); Globulin 2.9 g/dL (1.7-4.1); Glucose 112 mg/dL (70-100); HEMOLYSIS < 15 (0-50); Lipase 120 U/L (23-300); Potassium 3.4 mmol/L (3.4-5.1); Sodium 139 mmol/L (137-145); Total Protein 7.1 g/dL (6.3-8.2)
[2021-05-05 12:56] LABS: Appearance Urine UA CLOUDY; Bilirubin Urine UA NEGATIVE (NEGATIVE); Color Urine UA YELLOW; Glucose Urine UA NEGATIVE (Negative); Ketones Urine UA NEGATIVE (NEGATIVE); Leukocyte Esterase Urine UA 1+ (NEGATIVE); Nitrite Urine UA NEGATIVE (Negative); Occult Blood Urine UA 3+ (Negative); Protein Urine UA TRACE (Negative); Urobilinogen Urine UA 0.2 E.U./dL (0.2)
[2021-05-05 12:57] LABS: pH Urine UA 8.5 (4.5-8.0)
[2021-05-05 13:03] LABS: Amorphous Sediment Urine 2+; Bacteria Urine Moderate (10-30); Culture Indicated Urine Specimen Cultured; RBC Urine 10-30/HPF (0-5/HPF); Squamous Epithelial Cell Urine 1-5 /HPF (0-5/HPF); WBC Urine 10-30/HPF (0-5/HPF)
--- NOTE | 2021-05-05 13:33 | ED_ITS ---
HPI - General Adult General Chief complaint: Abdominal Pain Stated complaint: L side pain abd and back Time Seen by Provider: 05/05/21 13:15 Source: patient Mode of arrival: EMS History of Present Illness HPI narrative: Patient is a 40-year-old female who is here for evaluation of left-sided abdominal pain, left-sided flank pain, nausea vomiting. States the pain woke her from sleep at approximately 0300 hours in the morning. Is been co nsistent and worsening since then. No fevers. Has had urinary frequency and urgency and also hesitancy. Has not had a bowel movement since the onset of the symptoms although she feels like that she needs to. No prior history of kidney stones. Has not tried anything for the symptoms prior to arrival. Related Data Home Medications Medication Instructions Recorded Confirmed albuterol sulfate 90 mcg/actuation 1 inhalation INHALATION Q4-6H PRN 06/15/19 12/12/20 breath activated powder inhaler divalproex 500 mg tablet,extended 500 mg PO DAILY 02/07/20 12/12/20 release 24 hr sumatriptan succinate 100 mg tablet 100 mg PO PRN PRN 02/07/20 12/12/20 Previous Rx's Medication Instructions Recorded chlorhexidine gluconate 0.12 % 15 ml BUCCAL BID #1500 ml 04/21/20 mouthwash fluticasone 250 mcg-salmeterol 50 1 inhalation INHALATION BID 30 04/21/20 mcg/dose blistr powdr for Days #14 each inhalation fluticasone propionate 50 1 spray NASAL BID PRN 30 Days 04/21/20 mcg/actuation nasal #15.8 ml spray,suspension fluoxetine 20 mg capsule 40 mg PO DAILY 30 Days #60 cap 07/23/20 oxycodone-acetaminophen 5 mg-325 1 tab PO Q4-6H PRN #30 tab 12/12/20 mg tablet Allergies Allergy/AdvReac Type Severity Reaction Status Date / Time No Known Drug Allergies Allergy Unverified 05/05/21 12:24 Review of Systems Constitutional Constitutional: Denies fever(s) Cardiovascular Cardiovascular: Denies chest pain and Denies dyspnea Respiratory Respiratory: Denies dyspnea Gastrointestinal Gastrointestinal: Reports as per HPI and Reports system reviewed and no additional complaints, except as documented Genitourinary Genitourinary: Reports system reviewed and no additional complaints, except as documented and Reports as per HPI Musculoskeletal Musculoskeletal: Reports system reviewed and no additional complaints, except as documented, Reports as per HPI and Reports back pain Integumentary/Breasts Skin/Breast: Reports system reviewed and no additional complaints, except as documented Neurologic Neurologic: Reports system reviewed and no additional complaints, except as documented Hematologic/Lymphatic On Anticoagulants: No Patient History Medical History Anemia, unspecified Anxiety (~2012) Anxiety disorder Carpal tunnel syndrome (~2000) Chicken pox (~1987) Cloudy urine Depression (~2012) Headache (~2012) Hearing loss Heavy menstrual period (~2018) History of bipolar disorder (~2012) History of sterilization procedure Irregular menstrual cycle (~1987) Kidney damage Menorrhagia Migraine Migraines (~2012) Obesity (BMI 30-39.9) Painful menstrual periods (~2018) PTSD (post-traumatic stress disorder) (~2012) Restless leg syndrome (~2018) Scoliosis (~1997) Seasonal allergies Seizure (~1981) Smoker Surgical History Anesthesia H/O nephrolithotomy with removal of calculi History of ankle surgery (~2012) Hx of cholecystectomy (~2016) Family History Father Colon cancer Brother Mental health problem Grandmother Diabetes mellitus Mental health problem Dementia Social History household members: family Smoking Status: Current every day smoker Tobacco: How many years used: 24 quit status: quit date established (07/23/19 ) alcohol intake: current substance use type: former substance user and marijuana (former ) Smoking Status: Current every day smoker alcohol intake frequency: holidays/special occasions only Substance Use Type: former substance user Exam Initial Vital Signs Initial Vital Signs: Vital Signs Temperature 97.3 F L 05/05/21 12:24 Pulse Rate 82 05/05/21 12:24 Respiratory Rate 18 05/05/21 12:24 Blood Pressure 163/91 H 05/05/21 12:24 Pulse Oximetry 99 05/05/21 12:24 Const General: cooperative, healthy appearing and well developed Limitations: mental status not altered HENMT Head: normal to inspection and normocephalic Eyes General: appearance normal, both eyes and all related structures Resp Effort & Inspection: normal respiratory effort Auscultation: clear to auscultation bilaterally Cardio Rate: regular rate Rhythm: regular rhythm GI Inspection: normal to inspection and non-distended Palpation: soft and tender (Left-sided abdomen) Back/Spine/Pelvis Back: CVA tenderness left Skin Lesions: no lesions Rashes: no rashes Neuro General: patient alert, patient awake, patient oriented x3 and moves all extremities Extrem General: normal to inspection and capillary refill normal Psych Appearance: grossly normal and well kempt Course Orders Ordered: ED Orders 05/05/21 12:28 EKG-12 Lead Stat 05/05/21 12:30 Complete Blood Count AUTO DIFF Stat Comprehensive Metabolic Panel Stat Lactate (Lactic Acid) Stat Lipase Stat 05/05/21 12:44 Urinalysis and Microscopic Stat Urine Culture Stat 05/05/21 13:34 CT abdomen pelvis w con Stat 05/05/21 15:15 Blood Culture Stat 05/05/21 15:38 COVID19 - ADMIT ([employer] swab/PCR) Stat Fentanyl (Fentanyl 100 Mcg/2 Ml Inj) 0 mcg IV Q5M PRN PRN Reason: Pain, Moderate (4-6) Lactated Ringer's (Lactated Ringers) 1,000 mls @ 42 mls/hr IV CONT OLGA Lactated Ringer's (Lactated Ringers) 500 mls @ 25 mls/hr IV CONT OLGA Meperidine HCl (Meperidine 50 Mg/Ml Inj) 12.5 mg IV PACUNOW PRN PRN Reason: Mild pain or shivering Ondansetron HCl (Ondansetron 4 Mg/2 Ml Inj) 4 mg IV NOW PRN PRN Reason: Nausea And Vomiting Discontinued Medications Acetaminophen (Acetaminophen 325 Mg Tablet) 650 mg PO NOW ONE Stop: 05/05/21 15:23 Last Admin: 05/05/21 15:29 Dose: 650 mg Documented by: RAPHAEL Sodium Chloride (Normal Saline 0.9%) 1,000 mls @ 500 mls/hr IV BOLUS ONE Stop: 05/05/21 15:32 Last Infusion: 05/05/21 15:42 Dose: 0 mls/hr Documented by: Admin: 05/05/21 13:41 Dose: 500 mls/hr Documented by: RAPHAEL Ceftriaxone Sodium 1,000 mg/ (Sodium Chloride) 100 mls @ 200 mls/hr IV NOW ONE Stop: 05/05/21 14:42 Last Infusion: 05/05/21 15:52 Dose: 0 mls/hr Documented by: Admin: 05/05/21 15:14 Dose: 200 mls/hr Documented by: RAPHAEL Ampicillin Sodium/Sulbactam (Sodium 3 gm/ Sodium Chloride) 100 mls @ 100 mls/hr IV NOW ONE Stop: 05/05/21 16:29 Gentamicin Sulfate 180 mg/ (Sodium Chloride) 104.5 mls @ 104.5 mls/hr IV NOW ONE Stop: 05/05/21 16:29 Ketorolac Tromethamine (Ketorolac 30 Mg/Ml Vial) 30 mg IV NOW ONE Stop: 05/05/21 13:34 Last Admin: 05/05/21 13:41 Dose: 30 mg Documented by: RAPHAEL Ondansetron HCl (Ondansetron 4 Mg/2 Ml Inj) 4 mg IV NOW ONE Stop: 05/05/21 12:30 Last Admin: 05/05/21 12:32 Dose: 4 mg Documented by: TRISTON Ondansetron HCl (Ondansetron 4 Mg/2 Ml Inj) 4 mg IV NOW ONE Stop: 05/05/21 14:39 Last Admin: 05/05/21 14:51 Dose: 4 mg Documented by: RAPHAEL Vital Signs Vital signs: Vital Signs - 8 hr 05/05/21 12:24 05/05/21 13:31 05/05/21 14:02 Temperature 97.3 F L Pulse Rate 82 56 L 106 H Respiratory Rate 18 Blood Pressure 163/91 H 142/78 H Pulse Oximetry 99 100 93 05/05/21 14:03 05/05/21 15:00 05/05/21 15:29 Temperature 101 F H Pulse Rate 106 H 88 Respiratory Rate 20 Blood Pressure 147/74 H 134/70 Pulse Oximetry 100 05/05/21 15:30 Temperature 101 F H Pulse Rate 93 H Respiratory Rate 20 Blood Pressure 130/78 Pulse Oximetry Medical Decision Making Lab Data Lab results reviewed: Yes I reviewed the patient's lab results. Result diagrams: 05/05/21 12:30 05/05/21 12:30 Labs: Lab Results 05/05/21 05/05/21 05/05/21 Range/Units 12:30 12:30 12:30 WBC 15.5 H (4.5-11.0) X10^3/uL RBC 5.10 (4.0-5.2) X10^6/uL Hgb 13.2 (12.0-16.0) g/dL Hct 41.5 (36-46) % MCV 81.3 (80-100) fL MCH 25.9 L (26-34) PG MCHC 31.8 (30-36) % RDW 19.6 H (11.6-14.8) % Plt Count 190 (150-400) X10^3/uL Neut % (Auto) 87.8 H (50-75) % Lymph % (Auto) 7.1 L (25-40) % [place] % (Auto) 4.5 (3-14) % Eos % (Auto) 0.2 L (2-4) % Baso % (Auto) 0.4 (0-2) % Neut # (Auto) 05497 H (8043-8039) /uL Lymph # (Auto) 1100 (0981-3356) /uL [place] # (Auto) 700 (0-900) /uL Eos # (Auto) 0 (0-450) /uL Baso # (Auto) 100 (0-100) /uL Sodium 139 (137-145) mmol/L Potassium 3.4 (3.4-5.1) mmol/L Chloride 106 (98-107) mmol/L Carbon Dioxide 26 (22-32) mmol/L BUN 11 (7-17) mg/dL Creatinine 0.54 (0.52-1.04) mg/dL Estimated GFR > 60.0 (>60) mL/min BUN/Creatinine Ratio 20.4 (6-22) Glucose 112 H (70-100) mg/dL Lactate 1.2 (0.7-2.1) mmol/L Calcium 9.4 (8.4-10.2) mg/dL Total Bilirubin 0.4 (0.2-1.3) mg/dL AST 23 (14-36) IU/L ALT 16 (<35) IU/L Alkaline Phosphatase 99 (38-126) U/L Total Protein 7.1 (6.3-8.2) g/dL Albumin 4.2 (3.5-5.0) g/dL Globulin 2.9 (1.7-4.1) g/dL Albumin/Globulin Ratio 1.4 (1.0-2.8) Lipase 120 (23-300) U/L Urine Color Urine Appearance Urine pH (4.5-8.0) Ur Specific [place] (1.000-1.035) Urine Protein (Negative) Urine Glucose (UA) (Negative) g/dL Urine Ketones (NEGATIVE) Urine Occult Blood (Negative) Urine Nitrate (Negative) Urine Bilirubin (NEGATIVE) Urine Urobilinogen (0.2) E.U./dL Ur Leukocyte Esterase (NEGATIVE) Urine RBC (0-5/HPF) Urine WBC (0-5/HPF) Ur Squamous Epith Cells (0-5/HPF) Amorphous Sediment Urine Bacteria (None) Ur Culture Indicated? SARS-CoV-2 (PCR) (Negative) 05/05/21 05/05/21 Range/Units 12:44 15:38 WBC (4.5-11.0) X10^3/uL RBC (4.0-5.2) X10^6/uL Hgb (12.0-16.0) g/dL Hct (36-46) % MCV (80-100) fL MCH (26-34) PG MCHC (30-36) % RDW (11.6-14.8) % Plt Count (150-400) X10^3/uL Neut % (Auto) (50-75) % Lymph % (Auto) (25-40) % [place] % (Auto) (3-14) % Eos % (Auto) (2-4) % Baso % (Auto) (0-2) % Neut # (Auto) (6238-1187) /uL Lymph # (Auto) (3244-4937) /uL [place] # (Auto) (0-900) /uL Eos # (Auto) (0-450) /uL Baso # (Auto) (0-100) /uL Sodium (137-145) mmol/L Potassium (3.4-5.1) mmol/L Chloride (98-107) mmol/L Carbon Dioxide (22-32) mmol/L BUN (7-17) mg/dL Creatinine (0.52-1.04) mg/dL Estimated GFR (>60) mL/min BUN/Creatinine Ratio (6-22) Glucose (70-100) mg/dL Lactate (0.7-2.1) mmol/L Calcium (8.4-10.2) mg/dL Total Bilirubin (0.2-1.3) mg/dL AST (14-36) IU/L ALT (<35) IU/L Alkaline Phosphatase (38-126) U/L Total Protein (6.3-8.2) g/dL Albumin (3.5-5.0) g/dL Globulin (1.7-4.1) g/dL Albumin/Globulin Ratio (1.0-2.8) Lipase (23-300) U/L Urine Color Yellow Urine Appearance Cloudy Urine pH 8.5 H (4.5-8.0) Ur Specific [place] 1.020 (1.000-1.035) Urine Protein Trace H (Negative) Urine Glucose (UA) Negative (Negative) g/dL Urine Ketones Negative (NEGATIVE) Urine Occult Blood 3+ H (Negative) Urine Nitrate Negative (Negative) Urine Bilirubin Negative (NEGATIVE) Urine Urobilinogen 0.2 (0.2) E.U./dL Ur Leukocyte Esterase 1+ H (NEGATIVE) Urine RBC 10-30/hpf H (0-5/HPF) Urine WBC 10-30/hpf H (0-5/HPF) Ur Squamous Epith Cells 1-5 /hpf (0-5/HPF) Amorphous Sediment 2+ Urine Bacteria Moderate (10-30) H (None) Ur Culture Indicated? Specimen cultured SARS-CoV-2 (PCR) Negative (Negative) Imaging Data CT scan - abdomen/pelvis: Radiologist's Impression: [place] [address] CT Scan Report Signed Patient: Katja Best MR#: [id number] : 1980 Acct:[id number] Age/Sex: 40 / F Date of Service: 05/05/21 Loc: ED Accession Number: [id number] ?? Procedure: CT abdomen pelvis w con Ordering Provider: Gonsalo Bonilla D.O. PROCEDURE:? CT ABDOMEN PELVIS W CON ? INDICATIONS:? Left-sided abdominal pain ? TECHNIQUE:? After the administration of IV contrast, axial sections were acquired from the lung bases to the pubic symphysis.? Coronal and sagittal reformats were performed.? For radiation dose reduction, the following was used:? automated exposure control, adjustment of mA and/or kV according to patient size. ? COMPARISON:? [facility], , ABDOMEN COMPLETE, 08/22/2015, 18:40.? [facility], CT, ABDOMEN WITH CONTRAST, 10/09/2015, 12:29.? [facility], , US RENAL COMPLETE, 12/29/2020, 10:00.? [facility], , PELVIC COMPLETE, 10/17/2020, 15:15. ? FINDINGS:? Image quality:? Excellent.? ? Lung bases:? Unremarkable.? ? Heart:? No significant findings. ? ? ABDOMEN: Liver:? Incidental note is made of focal fatty infiltration adjacent to the falciform ligament, which is not regarded to be pathologic.? This is new compared to 2016. Gallbladder:? Removed.? ? Biliary ducts:? Unremarkable.? ? Pancreas:? Unremarkable.? ? Spleen:? Unremarkable.? ? Adrenal Glands:? Unremarkable.? ? Kidneys and Ureters:? Within the distal most left ureter, there is an obstructing stone seen that measures 4-5 mm, as on series 2, image 76 and on series 4, image 35. There is associated moderate left-sided hydroureter and hydronephrosis, with perinephric fat stranding.? No right-sided hydronephrosis is seen.? No definite nonobstructing stones are seen on this study. ? Stomach and Bowel:? Stomach, small bowel loops, and colon are unremarkable.? A normal appendix is incidentally noted.? Peritoneum:? No abnormal intraperitoneal fluid.? No free air.? ? Ventral Wall: ? No hernia.? Along the left abdominal wall, there is an intramuscular lipoma seen, as on series 2, image 34 that measures up to 5.7 cm.? This has increased in size compared to 2016. Abdominal Nodes:? No retroperitoneal or mesenteric adenopathy by size criteria.? Vessels:? Aorta and inferior vena cava are normal in size.? ? PELVIS: Pelvic Organs:? The uterus is unremarkable.? There is a rim enhancing cyst seen involving the right ovary that measures up to 1.9 cm. Bladder:? Unremarkable.? ? Pelvic Nodes: No enlarged lymph nodes.? Miscellaneous: No inguinal hernias are seen. ? ? ? Bones:? There is partial visualization of left proximal femur hardware. ? ? ? IMPRESSION:? ? 4-5 mm obstructing stone seen within the distal left ureter at the ureterovesicular junction, with associated left-sided hydroureter and hydronephrosis and perinephric fat stranding. ? 1.9 cm right ovarian hemorrhagic cyst. If it would be clinically appropriate, a followup pelvic ultrasound could be considered in 6 weeks to assure resolution/ improveme nt.? ? ? Incidental note is made of: Cholecystectomy Fatty liver infiltration seen adjacent to the falciform ligament Left abdominal wall intramuscular lipoma Normal appendix Left proximal femur hardware ? Note: Case discussed by telephone with Dr. Bonilla at 1:19 p.m. [place] time on May 05, 2021. ? ? ? Dictated by: Young Ruvalcaba M.D. on 05/05/2021 at 13:14 ? ? Approved by: Young Ruvalcaba M.D. on 05/05/2021 at 13:20? MDM Narrative Medical decision making narrative: CT scan does show distal left-sided ureteral stone however with her urinalysis and her leukocytosis the concern is for pyelonephritis. During her stay here she did become febrile. She had rigors. Was started on Rocephin. Blood cultures were obtained. Not hypotensive. Was given Tylenol. Discussed the case with Dr. Gonsalez on-call with Urology who evaluated the patient here in the emergency department. Will admit for further evaluation and treatment. I did discuss the findings of the CT scan in the labs and the need for admission with the patient. She expressed understanding agreement. Discharge Plan Departure Patient Disposition: Admitted As Inpatient Clinical Impression: Left ureteral calculus, Pyelonephritis Admit Date/Time: 05/05/21 16:06 Admit Provider: Nicky Gonsalez
--- NOTE | 2021-05-05 13:34 | DI.CT.S_ITS ---
PROCEDURE: CT ABDOMEN PELVIS W CON INDICATIONS: Left-sided abdominal pain TECHNIQUE: After the administration of IV contrast, axial sections were acquired from the lung bases to the pubic symphysis. Coronal and sagittal reformats were performed. For radiation dose reduction, the following was used: automated exposure control, adjustment of mA and/or kV according to patient size. COMPARISON: [facility], [place], ABDOMEN COMPLETE, 08/22/2015, 18:40. [facility], CT, ABDOMEN WITH CONTRAST, 10/09/2015, 12:29. [facility], , US RENAL COMPLETE, 12/29/2020, 10:00. [facility], , US PELVIC COMPLETE, 10/17/2020, 15:15. FINDINGS: Image quality: Excellent. Lung bases: Unremarkable. Heart: No significant findings. ABDOMEN: Liver: Incidental note is made of focal fatty infiltration adjacent to the falciform ligament, which is not regarded to be pathologic. This is new compared to 2016. Gallbladder: Removed. Biliary ducts: Unremarkable. Pancreas: Unremarkable. Spleen: Unremarkable. Adrenal Glands: Unremarkable. Kidneys and Ureters: Within the distal most left ureter, there is an obstructing stone seen that measures 4-5 mm, as on series 2, image 76 and on series 4, image 35. There is associated moderate left-sided hydroureter and hydronephrosis, with perinephric fat stranding. No right-sided hydronephrosis is seen. No definite nonobstructing stones are seen on this study. Stomach and Bowel: Stomach, small bowel loops, and colon are unremarkable. A normal appendix is incidentally noted. Peritoneum: No abnormal intraperitoneal fluid. No free air. Ventral Wall: No hernia. Along the left abdominal wall, there is an intramuscular lipoma seen, as on series 2, image 34 that measures up to 5.7 cm. This has increased in size compared to 2016. Abdominal Nodes: No retroperitoneal or mesenteric adenopathy by size criteria. Vessels: Aorta and inferior vena cava are normal in size. PELVIS: Pelvic Organs: The uterus is unremarkable. There is a rim enhancing cyst seen involving the right ovary that measures up to 1.9 cm. Bladder: Unremarkable. Pelvic Nodes: No enlarged lymph nodes. Miscellaneous: No inguinal hernias are seen. Bones: There is partial visualization of left proximal femur hardware. IMPRESSION: 4-5 mm obstructing stone seen within the distal left ureter at the ureterovesicular junction, with associated left-sided hydroureter and hydronephrosis and perinephric fat stranding. 1.9 cm right ovarian hemorrhagic cyst. If it would be clinically appropriate, a followup pelvic ultrasound could be considered in 6 weeks to assure resolution/ improvement. Incidental note is made of: Cholecystectomy Fatty liver infiltration seen adjacent to the falciform ligament Left abdominal wall intramuscular lipoma Normal appendix Left proximal femur hardware Note: Case discussed by telephone with Dr. Bonilla at 1:19 p.m. [place] time on May 05, 2021. Dictated by: Young Ruvalcaba M.D. on 05/05/2021 at 13:14 Approved by: Young Ruvalcaba M.D. on 05/05/2021 at 13:20
[2021-05-05] MEDS: SODIUM CHLORIDE 0.9% 1,000 ML 500 ML IV (13:41)
[2021-05-05] MEDS: KETOROLAC 30 MG/ML VIAL IV (13:41)
[2021-05-05 14:57] LABS: Lactate (Lactic Acid) 1.2 mmol/L (0.7-2.1)
[2021-05-05] MEDS: cefTRIAXone 1,000 MG in SODIUM CHLORIDE 0.9% 100 ML 200 ML IV (15:14)
[2021-05-05] MEDS: ACETAMINOPHEN 325 MG TABLET 650 MG PO (15:29)
--- NOTE | 2021-05-05 15:59 | PM.HP.1 ---
History of Present Illness History of Present Illness Date Patient Seen: 05/05/21 Time Patient Seen: 15:59 Chief complaint: L side pain abd and back Narrative: The patient is a 40-year-old female experiencing her usual health until about 3:00 a.m. earlier this day she awakened having left sided flank abdominal pain. She presented to [facility] ED for evaluation. CT KUB demonstrates a an obstructing 4 mm distal left ureteral calculus. White blood cell count on presentation was 15.5 with left shift. Urinalysis showed many bacteria and only 1-5 squamous epithelial cells. The specimen is since been sent for culture. Clinical course in the emergency department is significant for clinical deterioration and fever spike over the last 1 hour. Patient History Medical History Anemia, unspecified Anxiety (~2012) Anxiety disorder Carpal tunnel syndrome (~2000) Chicken pox (~1987) Cloudy urine Depression (~2012) Headache (~2012) Hearing loss Heavy menstrual period (~2018) History of bipolar disorder (~2012) History of sterilization procedure Irregular menstrual cycle (~1987) Kidney damage Menorrhagia Migraine Migraines (~2012) Obesity (BMI 30-39.9) Painful menstrual periods (~2018) PTSD (post-traumatic stress disorder) (~2012) Restless leg syndrome (~2018) Scoliosis (~1997) Seasonal allergies Seizure (~1981) Smoker Surgical History Anesthesia H/O nephrolithotomy with removal of calculi History of ankle surgery (~2012) Hx of cholecystectomy (~2016) Family & Social History Family History Father Colon cancer Brother Mental health problem Grandmother Diabetes mellitus Mental health problem Dementia Social History: household members family Safety & Behavioral: Feels Safe in Current Yes Environment Been Physically Hurt or No Threatened By a Person Tobacco & Substance use: Tobacco type cigarettes Smoking Status Current every day smoker alcohol intake current alcohol intake frequency holiday/special occasion Substance Use Type former substance user Meds Home Medications and Allergies Home Medications Medication Instructions Recorded Confirmed Type albuterol sulfate 90 mcg/actuation 1 inhalation INHALATION Q4-6H PRN 06/15/19 12/12/20 History breath activated powder inhaler divalproex 500 mg tablet,extended 500 mg PO DAILY 02/07/20 12/12/20 History release 24 hr sumatriptan succinate 100 mg tablet 100 mg PO PRN PRN 02/07/20 12/12/20 History chlorhexidine gluconate 0.12 % 15 ml BUCCAL BID #1500 ml 04/21/20 12/12/20 Rx mouthwash fluticasone 250 mcg-salmeterol 50 1 inhalation INHALATION BID 30 04/21/20 12/12/20 Rx mcg/dose blistr powdr for Days #14 each inhalation fluticasone propionate 50 1 spray NASAL BID PRN 30 Days 04/21/20 12/12/20 Rx mcg/actuation nasal #15.8 ml spray,suspension fluoxetine 20 mg capsule 40 mg PO DAILY 30 Days #60 cap 07/23/20 12/12/20 Rx oxycodone-acetaminophen 5 mg-325 1 tab PO Q4-6H PRN #30 tab 12/12/20 12/12/20 Rx mg tablet Allergies Allergy/AdvReac Type Severity Reaction Status Date / Time No Known Drug Allergies Allergy Unverified 05/05/21 12:24 Review of Systems Review of Systems ROS: Yes All systems reviewed with the patient and are negative except as otherwise documented Exam Vital Signs (past 8 hours): - 05/05/21 12:24 05/05/21 13:31 05/05/21 14:02 Temperature 97.3 F L Pulse Rate 82 56 L 106 H Respiratory Rate 18 Blood Pressure 163/91 H 142/78 H Pulse Oximetry 99 100 93 05/05/21 14:03 05/05/21 15:00 05/05/21 15:29 Temperature 101 F H Pulse Rate 106 H 88 Respiratory Rate 20 Blood Pressure 147/74 H 134/70 Pulse Oximetry 100 05/05/21 15:30 Temperature 101 F H Pulse Rate 93 H Respiratory Rate 20 Blood Pressure 130/78 Pulse Oximetry Oxygen Delivery Method Room Air Narrative Exam Narrative: Well-developed and morbidly obese female. Head/neck sclera clear pupils are round equal bilaterally. No visible evidence of adenopathy or JVD. Chest-equal, clear, and unlabored expansion bilaterally. Heart-normal sinus rhythm. Objective Labs Result Diagrams: 05/05/21 12:30 05/05/21 12:30 Labs: Laboratory Results - last 24 hr 05/05/21 05/05/21 05/05/21 12:30 12:30 12:30 WBC 15.5 H RBC 5.10 Hgb 13.2 Hct 41.5 MCV 81.3 MCH 25.9 L MCHC 31.8 RDW 19.6 H Plt Count 190 Neut % (Auto) 87.8 H Lymph % (Auto) 7.1 L [place] % (Auto) 4.5 Eos % (Auto) 0.2 L Baso % (Auto) 0.4 Neut # (Auto) 69746 H Lymph # (Auto) 1100 [place] # (Auto) 700 Eos # (Auto) 0 Baso # (Auto) 100 Sodium 139 Potassium 3.4 Chloride 106 Carbon Dioxide 26 BUN 11 Creatinine 0.54 Estimated GFR > 60.0 BUN/Creatinine Ratio 20.4 Glucose 112 H Lactate 1.2 Calcium 9.4 Total Bilirubin 0.4 AST 23 ALT 16 Alkaline Phosphatase 99 Total Protein 7.1 Albumin 4.2 Globulin 2.9 Albumin/Globulin Ratio 1.4 Lipase 120 Urine Color Urine Appearance Urine pH Ur Specific [place] Urine Protein Urine Glucose (UA) Urine Ketones Urine Occult Blood Urine Nitrate Urine Bilirubin Urine Urobilinogen Ur Leukocyte Esterase Urine RBC Urine WBC Ur Squamous Epith Cells Amorphous Sediment Urine Bacteria Ur Culture Indicated? 05/05/21 12:44 WBC RBC Hgb Hct MCV MCH MCHC RDW Plt Count Neut % (Auto) Lymph % (Auto) [place] % (Auto) Eos % (Auto) Baso % (Auto) Neut # (Auto) Lymph # (Auto) [place] # (Auto) Eos # (Auto) Baso # (Auto) Sodium Potassium Chloride Carbon Dioxide BUN Creatinine Estimated GFR BUN/Creatinine Ratio Glucose Lactate Calcium Total Bilirubin AST ALT Alkaline Phosphatase Total Protein Albumin Globulin Albumin/Globulin Ratio Lipase Urine Color Yellow Urine Appearance Cloudy Urine pH 8.5 H Ur Specific [place] 1.020 Urine Protein Trace H Urine Glucose (UA) Negative Urine Ketones Negative Urine Occult Blood 3+ H Urine Nitrate Negative Urine Bilirubin Negative Urine Urobilinogen 0.2 Ur Leukocyte Esterase 1+ H Urine RBC 10-30/hpf H Urine WBC 10-30/hpf H Ur Squamous Epith Cells 1-5 /hpf Amorphous Sediment 2+ Urine Bacteria Moderate (10-30) H Ur Culture Indicated? Specimen cultured Assessment & Plan Assessment & Plan narrative: Assessment: 1. Obstructing 4 mm left distal ureteral calculus. 2. UTI/left pyelonephritis/early urosepsis. Plan: 1. Plan urgent CYSTOSCOPY/PLACEMENT LEFT URETERAL STENT. 2. Future left ureteroscopic laser lithotripsy. Time Spent With Patient Critical Care time: I spent a total of [] minutes of critical care time on this patient's care today; this time is exclusive of procedural time.
--- NOTE | 2021-05-05 16:41 | SUR.OPER ---
Lithotomy on padded OR bed, head on pillow, arms secured on padded arm boards at <90 degrees abduction. Legs secured in padded yellow fins stirrups.
[2021-05-05 16:52] LABS: COVID19 - ADMIT (NP swab/PCR) Negative (Negative)
[2021-05-05] MEDS: AMPICILLIN/SULBACTAM 3 GM 3 GM in SODIUM CHLORIDE 0.9% 100 ML IV (16:55)
[2021-05-05] MEDS: GENTAMICIN 180 MG in SODIUM CHLORIDE 0.9% 100 ML 104.5 ML IV (17:05)
[2021-05-05] MEDS: BELLADONNA/OPIUM SUPPOSITORIES 1 EACH PR (17:19)
--- NOTE | 2021-05-05 17:44 | P.OP_ITS ---
Operative Date/Time/Diagnoses Date of procedure: 05/05/21 Time of procedure: 17:44 Pre-op diagnosis: Obstructing 4 mm left distal ureteral calculus. UTI/left pyelonephritis. Post-op diagnosis: same Procedure & Clinicians Procedure: 1. Cystoscopy/placement left ureteral stent. 2. Cystoscopy/left ureteral stone manipulation without removal. Same procedure as scheduled: Yes Indications: 1. Obstructing left distal ureteral calculus. 2. UTI/left pyelonephritis. Surgeon: Nicky Gonsalez Click Yes if Unassisted: Yes Anesthesia Type: General Operative Notes Findings: 1. Urethra-patulous meatus without evidence of lesion or obstruction. 2. Bladder mild hyperemia. Normal ureteral orifices bilaterally. There was a cloudy postobstructive efflux witnessed upon retrograde passage of the ureteral guidewire. Closure Type: not applicable Specimen(s): none sent Applied: other (Six Green[place]ic by 22-32 cm multi-length stent) Estimated Blood Loss (mL): 0 Blood products transfused: none Tourniquet time (min): 0 Procedure in detail: Patient was positioned in supine is administered general anesthesia. She was then repositioned semi lithotomy and the lower abdomen, genitalia, and groin were then prepped and draped in sterile fashion. The 22 [place] panendoscope was then passed lower urinary tract with the findings as described above. A 0.35 hybrid guidewire was then selected advanced into the left collecting system under direct and fluoroscopic guidance. Over this a 6 [place] by 22-32 cm multi-length stent was selected advanced over the hybrid guidewire, a again, under direct and fluoroscopic guidance. No retrieval line was left attached. The bladder was then drained completely and all instrumentation removed. The patient was then repositioned in supine, was awakened, and transferred to a rfenelton awake in stable condition. Complications: none Post-operative Condition: stable Disposition: PACU Plan for aftercare: Admit for observation.
[2021-05-05] MEDS: fentaNYL 100 MCG/2 ML INJ IV ×2 (18:00→18:06)
[2021-05-05] MEDS: LACTATED RINGERS 1,000 ML 125 ML IV (19:05)
[2021-05-05 21:02] LABS: Add Manual Diff / Slide Review NO; Basophils Absolute Auto 0 /uL (0-100); Basophils Percent Auto 0.2 % (0-2); Eosinophils Absolute Auto 0 /uL (0-450); Hematocrit 36.4 % (36-46); Hemoglobin 11.7 g/dL (12.0-16.0); Lymphocytes Absolute Auto 200 /uL (1100-4500); Mean Corpuscular HGB Conc 32.2 % (30-36); Mean Corpuscular Volume 80.7 fL (80-100); Monocytes Absolute Auto 500 /uL (0-900); Monocytes Percent Auto 2.1 % (3-14); Neutrophils Absolute Auto 22400 /uL (1500-7000); Neutrophils Percent Auto 96.7 % (50-75); Platelet Count 146 X10^3/uL (150-400); Red Blood Cell Count 4.51 X10^6/uL (4.0-5.2); Red Cell Distribution Width 19.5 % (11.6-14.8); White Blood Cell Count 23.2 X10^3/uL (4.5-11.0)
[2021-05-05] MEDS: BUDESONIDE 0.5 MG/2 ML NEB INH (21:15)
--- NOTE | 2021-05-05 22:59 | PC.NURSE ---
pt ambulated to bsc, voiding without difficulty, urine pink w/very small clots. denied any dizziness or light headedness
[2021-05-06] VITALS (7 sets, daily range): BP systolic 94–125; BP diastolic 58–79; PULSE 50–72; RESP 16–20; TEMP 36.2–36.9; O2SAT 93–99
[2021-05-06] MEDS: OXYCODONE/ACETAMINOPHEN 5/325 TABLET 1 TAB PO ×4 (00:08→20:08)
[2021-05-06] MEDS: HYDROMORPHONE 0.5 MG INJ IV ×5 (00:09→23:17)
[2021-05-06] MEDS: LACTATED RINGERS 1,000 ML 125 ML IV ×3 (03:25→22:30)
[2021-05-06 04:25] LABS: Enterococcus species Not Detected (Not Detect); Listeria monocytogenes Not Detected (Not Detect); Staphylococcus species Not Detected (Not Detect); Streptococcus agalactiae (Gr B Not Detected (Not Detect); Streptococcus pneumonia Not Detected (Not Detect); Streptococcus species Not Detected (Not Detect)
[2021-05-06 04:26] LABS: Acinetobacter baumannii Not Detected (Not Detect); Candida albicans Not Detected (Not Detect); Candida glabrata Not Detected (Not Detect); Candida krusei Not Detected (Not Detect); Candida parapsilosis Not Detected (Not Detect); Candida tropicalis Not Detected (Not Detect); E. coli Detected (Not Detect); Enterobacter cloacae complex Not Detected (Not Detect); Enterobacteriaceae species Detected (Not Detect); Haemophilus influenzae Not Detected (Not Detect); KPC (carbapenem-resist gene) Not Detected (Not Detect); Neisseria meningitidis Not Detected (Not Detect); Proteus species Not Detected (Not Detect); Pseudomonas aeruginosa Not Detected (Not Detect); Serratia marcescens Not Detected (Not Detect); Streptococcus pyogenes (Gr A) Not Detected (Not Detect)
--- NOTE | 2021-05-06 07:54 | PM.PN.1 ---
Subjective Subjective Date Patient Seen: 05/06/21 Time Patient Seen: 07:54 Interval history: The patient is postoperative morning 1 status post urgent cystoscopy and placement left ureteral stent for obstructing 4 mm distal left ureteral calculus and clinical picture of urosepsis. She has remained hemodynamically stable and afebrile through the night. Preliminary blood cultures are positive for E coli x2. Urine cultures pending. She denies flank or abdominal pain. She complains of painful urination. Exam Vital Signs (past 8 hours): - 05/06/21 00:00 05/06/21 04:00 Temperature 98.5 F 97.9 F Pulse Rate 72 55 L Respiratory Rate 18 18 Blood Pressure 94/68 95/58 L Pulse Oximetry 93 97 Oxygen Delivery Method Room Air Oxygen Flow Rate 1 Narrative Exam Narrative: Resting comfortably in bed and in no acute distress. Chest-equal and unlabored expansion bilaterally. Heart-normal sinus rhythm. Objective Labs Result Diagrams: 05/05/21 20:40 05/05/21 12:30 Labs: Laboratory Results - last 24 hr 05/05/21 05/05/21 05/05/21 12:30 12:30 12:30 WBC 15.5 H RBC 5.10 Hgb 13.2 Hct 41.5 MCV 81.3 MCH 25.9 L MCHC 31.8 RDW 19.6 H Plt Count 190 Neut % (Auto) 87.8 H Lymph % (Auto) 7.1 L [place] % (Auto) 4.5 Eos % (Auto) 0.2 L Baso % (Auto) 0.4 Neut # (Auto) 10989 H Lymph # (Auto) 1100 [place] # (Auto) 700 Eos # (Auto) 0 Baso # (Auto) 100 Sodium 139 Potassium 3.4 Chloride 106 Carbon Dioxide 26 BUN 11 Creatinine 0.54 Estimated GFR > 60.0 BUN/Creatinine Ratio 20.4 Glucose 112 H Lactate 1.2 Calcium 9.4 Total Bilirubin 0.4 AST 23 ALT 16 Alkaline Phosphatase 99 Total Protein 7.1 Albumin 4.2 Globulin 2.9 Albumin/Globulin Ratio 1.4 Lipase 120 Urine Color Urine Appearance Urine pH Ur Specific [place] Urine Protein Urine Glucose (UA) Urine Ketones Urine Occult Blood Urine Nitrate Urine Bilirubin Urine Urobilinogen Ur Leukocyte Esterase Urine RBC Urine WBC Ur Squamous Epith Cells Amorphous Sediment Urine Bacteria Ur Culture Indicated? A. baumannii (PCR) Jana albicans (PCR) C. glabrata (PCR) C. krusei (PCR) C. parapsilosis (PCR) C. tropicalis (PCR) SARS-CoV-2 (PCR) Enterobacteriac sp PCR E. cloacae complex PCR Enterococcus sp PCR E. coli (PCR) H. influenzae (PCR) Klebsiella oxytoca PCR Klebsiella pneumoniae List. monocytogenes PCR N. meningitidis (PCR) Proteus species (PCR) Serratia marcescens PCR Staphylococcus sp PCR Staph aureus (PCR) mecA-Methicil Res Gene Streptococcus sp PCR Group A Strep (PCR) Strep agalactiae (PCR) Strep pneumoniae (PCR) P. aeruginosa (PCR) Dejan/B-Vanco Res Genes KPC-Carbap Res Gene PCR 05/05/21 05/05/21 05/05/21 12:44 15:38 20:40 WBC 23.2 H RBC 4.51 Hgb 11.7 L Hct 36.4 MCV 80.7 MCH 26.0 MCHC 32.2 RDW 19.5 H Plt Count 146 L Neut % (Auto) 96.7 H Lymph % (Auto) 1.0 L [place] % (Auto) 2.1 L Eos % (Auto) 0.0 L Baso % (Auto) 0.2 Neut # (Auto) 87126 H Lymph # (Auto) 200 L [place] # (Auto) 500 Eos # (Auto) 0 Baso # (Auto) 0 Sodium Potassium Chloride Carbon Dioxide BUN Creatinine Estimated GFR BUN/Creatinine Ratio Glucose Lactate Calcium Total Bilirubin AST ALT Alkaline Phosphatase Total Protein Albumin Globulin Albumin/Globulin Ratio Lipase Urine Color Yellow Urine Appearance Cloudy Urine pH 8.5 H Ur Specific [place] 1.020 Urine Protein Trace H Urine Glucose (UA) Negative Urine Ketones Negative Urine Occult Blood 3+ H Urine Nitrate Negative Urine Bilirubin Negative Urine Urobilinogen 0.2 Ur Leukocyte Esterase 1+ H Urine RBC 10-30/hpf H Urine WBC 10-30/hpf H Ur Squamous Epith Cells 1-5 /hpf Amorphous Sediment 2+ Urine Bacteria Moderate (10-30) H Ur Culture Indicated? Specimen cultured A. baumannii (PCR) Jana albicans (PCR) C. glabrata (PCR) C. krusei (PCR) C. parapsilosis (PCR) C. tropicalis (PCR) SARS-CoV-2 (PCR) Negative Enterobacteriac sp PCR E. cloacae complex PCR Enterococcus sp PCR E. coli (PCR) H. influenzae (PCR) Klebsiella oxytoca PCR Klebsiella pneumoniae List. monocytogenes PCR N. meningitidis (PCR) Proteus species (PCR) Serratia marcescens PCR Staphylococcus sp PCR Staph aureus (PCR) mecA-Methicil Res Gene Streptococcus sp PCR Group A Strep (PCR) Strep agalactiae (PCR) Strep pneumoniae (PCR) P. aeruginosa (PCR) Dejan/B-Vanco Res Genes KPC-Carbap Res Gene PCR 05/06/21 03:02 WBC RBC Hgb Hct MCV MCH MCHC RDW Plt Count Neut % (Auto) Lymph % (Auto) [place] % (Auto) Eos % (Auto) Baso % (Auto) Neut # (Auto) Lymph # (Auto) [place] # (Auto) Eos # (Auto) Baso # (Auto) Sodium Potassium Chloride Carbon Dioxide BUN Creatinine Estimated GFR BUN/Creatinine Ratio Glucose Lactate Calcium Total Bilirubin AST ALT Alkaline Phosphatase Total Protein Albumin Globulin Albumin/Globulin Ratio Lipase Urine Color Urine Appearance Urine pH Ur Specific [place] Urine Protein Urine Glucose (UA) Urine Ketones Urine Occult Blood Urine Nitrate Urine Bilirubin Urine Urobilinogen Ur Leukocyte Esterase Urine RBC Urine WBC Ur Squamous Epith Cells Amorphous Sediment Urine Bacteria Ur Culture Indicated? A. baumannii (PCR) Not detected Jana albicans (PCR) Not detected C. glabrata (PCR) Not detected C. krusei (PCR) Not detected C. parapsilosis (PCR) Not detected C. tropicalis (PCR) Not detected SARS-CoV-2 (PCR) Enterobacteriac sp PCR Detected H E. cloacae complex PCR Not detected Enterococcus sp PCR Not detected E. coli (PCR) Detected H H. influenzae (PCR) Not detected Klebsiella oxytoca PCR Not detected Klebsiella pneumoniae Not detected List. monocytogenes PCR Not detected N. meningitidis (PCR) Not detected Proteus species (PCR) Not detected Serratia marcescens PCR Not detected Staphylococcus sp PCR Not detected Staph aureus (PCR) Not detected mecA-Methicil Res Gene Not Reportable Streptococcus sp PCR Not detected Group A Strep (PCR) Not detected Strep agalactiae (PCR) Not detected Strep pneumoniae (PCR) Not detected P. aeruginosa (PCR) Not detected Dejan/B-Vanco Res Genes Not Reportable KPC-Carbap Res Gene PCR Not detected PFSH Medical History Anemia, unspecified Anxiety (~2012) Anxiety disorder Carpal tunnel syndrome (~2000) Chicken pox (~1987) Cloudy urine Depression (~2012) Headache (~2012) Hearing loss Heavy menstrual period (~2018) History of bipolar disorder (~2012) History of sterilization procedure Irregular menstrual cycle (~1987) Kidney damage Menorrhagia Migraine Migraines (~2012) Obesity (BMI 30-39.9) Painful menstrual periods (~2018) PTSD (post-traumatic stress disorder) (~2012) Restless leg syndrome (~2018) Scoliosis (~1997) Seasonal allergies Seizure (~1981) Smoker Surgical History Anesthesia H/O nephrolithotomy with removal of calculi History of ankle surgery (~2012) Hx of cholecystectomy (~2016) Family History Father Colon cancer Brother Mental health problem Grandmother Diabetes mellitus Mental health problem Dementia Social History household members: family Smoking Status: Current every day smoker Tobacco: How many years used: 24 quit status: quit date established (07/23/19 ) alcohol intake: current substance use type: former substance user and marijuana (former ) Assessment & Plan Assessment and plan (1) Left ureteral calculus: Status: Acute (2) Pyelonephritis: Status: Acute Plan: 1. Continue current antibiotic and clinical monitoring. 2. Follow-up cultures and sensitivities when available and anticipate discharge at that time. 3. Future definitive left ureteral laser lithotripsy once sepsis/pyelonephritis appropriately treated. Time Spent With Patient Critical Care time: I spent a total of [] minutes of critical care time on this patient's care today; this time is exclusive of procedural time.
[2021-05-06] MEDS: AMPICILLIN/SULBACTAM 3 GM 3 GM in SODIUM CHLORIDE 0.9% 100 ML IV ×2 (08:50→14:50)
[2021-05-06] MEDS: FLUoxetine 20 MG CAPSULE 40 MG PO (08:52)
[2021-05-06] MEDS: BUDESONIDE 0.5 MG/2 ML NEB INH (09:41)
[2021-05-06] MEDS: ALBUTEROL 2.5 MG/3 ML NEB (ADULT) INH (09:41)
[2021-05-06 12:52] LABS: Add Manual Diff / Slide Review NO; Basophils Absolute Auto 0 /uL (0-100); Basophils Percent Auto 0.1 % (0-2); Eosinophils Absolute Auto 0 /uL (0-450); Hematocrit 33.6 % (36-46); Hemoglobin 10.7 g/dL (12.0-16.0); Lymphocytes Absolute Auto 500 /uL (1100-4500); Lymphocytes Percent Auto 1.8 % (25-40); Mean Corpuscular HGB Conc 31.8 % (30-36); Mean Corpuscular Hemoglobin 25.9 PG (26-34); Mean Corpuscular Volume 81.5 fL (80-100); Monocytes Absolute Auto 1300 /uL (0-900); Monocytes Percent Auto 4.5 % (3-14); Neutrophils Absolute Auto 27100 /uL (1500-7000); Neutrophils Percent Auto 93.6 % (50-75); Platelet Count 128 X10^3/uL (150-400); Red Blood Cell Count 4.13 X10^6/uL (4.0-5.2); Red Cell Distribution Width 19.6 % (11.6-14.8); White Blood Cell Count 28.9 X10^3/uL (4.5-11.0)
--- NOTE | 2021-05-06 13:17 | CM.DANOTE ---
Patient is a 40 yo female who was admitted on 05/05/21 for L side pain abdomen. Pt has [employer] and [employer] for insurance and her PCP is Anna Love. EMR was reviewed. Per Urologist, pt admitted for urgent cystoscopy and stent for ureteral calculus. Awaiting pt's cultures to return and then pt likely can d/c on abx. Per RN, pt is independent in room and no concerns at this time. Ecoli found in initial cultures and pyelonephritis and likely can d/c on orals pending culture results. No bedside assessment completed yet at this time due to triage needs. Plan: SW to follow closely for pending culture results towards determining safe d/c home on oral vs IV-Abx. HAILEE Echols Discharge Planning/Care Management CM Discharge Assessment Start: 05/06/21 13:16 Freq: Status: Active Protocol: Document 05/06/21 13:16 BF (Rec: 05/06/21 13:17 BF [id number]) Discharge Planning Assessment Assigned Unit Manager HAILEE Garcia Advance Directives? No Advance Directives on File No History Provided By Patient,Medical Record Has Patient been admitted in last 30 No days? Prior Living Arrangements House Household Members family Type of transporation used prior to Drives own vehicle admit Independent with ADL's Yes Is patient alert and oriented? Yes Barriers to Discharge No Discharge Plan Home Transportation Arrangement Family Referrals Initiated None needed Review Status In Process Please Provide Date Initial DC 05/06/21 Assessment Was Performed Next Review Type Continued Stay Review
--- NOTE | 2021-05-06 14:35 | PC.NURSE ---
AM Shift note. pt AO and receptive to care. pt reporting left flank and lower back pain at rest and urethra pain with urination. Pain managed with Percocet and dilaudid. LR infusing at 125/hr. Hypoactive bowel tones and minimal gas passing. Urine is bright red and pink. Up SBA to BR.
[2021-05-06] MEDS: cefTRIAXone 2,000 MG in SODIUM CHLORIDE 0.9% 100 ML 200 ML IV (17:05)
[2021-05-06] MEDS: ONDANSETRON 4 MG ODT SL (20:13)
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
--- NOTE | 2021-05-06 23:40 | PC.NURSE ---
pain when she voids 7/10 pain, medicated with dilaudid and percococet. urine bright red, no clots. she reports she feels like she has to urinate even after voiding, bladder scan was 1-2ml PVR, pt voided 295cc total. afebrile.
[2021-05-07 00:10] VITALS: BP 109/64; PULSE 53; RESP 14; TEMP 36.7; O2SAT 93
[2021-05-07] MEDS: OXYCODONE/ACETAMINOPHEN 5/325 TABLET 1 TAB PO ×3 (00:15→10:01)
[2021-05-07] MEDS: diphenhydrAMINE 25 MG TABLET PO ×2 (01:50→08:00)
[2021-05-07] MEDS: HYDROMORPHONE 0.5 MG INJ IV (01:50)
--- NOTE | 2021-05-07 02:03 | PC.NURSE ---
Addendum entered by Mary Lou Winters R.N. 05/07/21 03:29: O2 sat noted to be dropping down into upper 80's when asleep so placed on oxygen at 2L/min per NC Original Note: Patient is alert and oriented. Breath sounds diminished but CTA with RA sat of 93%; placed on continuous oximetry as per MD order. HRR but bradycardic with rate in 40-50's. States she is mildly nauseated but using crackers with relief so not needing Zofran at this time. BT present and is passing flatus. Voiding small amounts frequently and complains of burning/pain with urination as well as some urgency but no incontinence. Urine is pink with no clots noted. Complains of left flank, back and bladder pain with severity of 5-7; medicated with Percocet at 0015 and with IV Dilaudid at 0150. Complains of itching so was also medicated with Benadryl. Is able to move herself in bed. Weak so is being assisted to BSC with 1 assist. Bilateral calf SCD's applied at time of assessment. Reports multiple falls in past 3 months so fall risk score is high and bed alarm is activated. Significant other rooming in.
[2021-05-07 04:00] VITALS: O2SAT 98
[2021-05-07 04:37] VITALS: BP 108/65; PULSE 63; RESP 17; TEMP 37.2; O2SAT 98
[2021-05-07 05:27] LABS: Add Manual Diff / Slide Review NO; Basophils Absolute Auto 0 /uL (0-100); Basophils Percent Auto 0.3 % (0-2); Eosinophils Absolute Auto 0 /uL (0-450); Eosinophils Percent Auto 0.2 % (2-4); Hematocrit 32.7 % (36-46); Hemoglobin 10.2 g/dL (12.0-16.0); Lymphocytes Absolute Auto 1100 /uL (1100-4500); Lymphocytes Percent Auto 6.4 % (25-40); Mean Corpuscular HGB Conc 31.3 % (30-36); Mean Corpuscular Hemoglobin 25.8 PG (26-34); Mean Corpuscular Volume 82.4 fL (80-100); Monocytes Absolute Auto 800 /uL (0-900); Monocytes Percent Auto 4.6 % (3-14); Neutrophils Absolute Auto 15600 /uL (1500-7000); Neutrophils Percent Auto 88.5 % (50-75); Platelet Count 114 X10^3/uL (150-400); Red Blood Cell Count 3.97 X10^6/uL (4.0-5.2); Red Cell Distribution Width 19.7 % (11.6-14.8); White Blood Cell Count 17.6 X10^3/uL (4.5-11.0)
[2021-05-07 05:40] LABS: BUN Creatinine Ratio 28.6 (6-22); Blood Urea Nitrogen 22 mg/dL (7-17); Calcium 8.6 mg/dL (8.4-10.2); Carbon Dioxide 28 mmol/L (22-32); Chloride 106 mmol/L (98-107); Estimated Glomerular Filt Rate > 60.0 mL/min (>60); Glucose 97 mg/dL (70-100); HEMOLYSIS < 15 (0-50); Potassium 3.4 mmol/L (3.4-5.1); Sodium 137 mmol/L (137-145)
[2021-05-07 05:56] LABS: Procalcitonin 11.9 ng/mL (<0.5)
--- NOTE | 2021-05-07 07:23 | PM.PN.1 ---
Subjective Subjective Date Patient Seen: 05/07/21 Time Patient Seen: 07:23 Interval history: Postoperative day 2 status post urgent cystoscopy placement left ureteral stent for obstructing 4 mm left distal ureteral calculus and urosepsis. She reports interval improved well-being and comfort. Is tolerating p.o.. Exam Vital Signs (past 8 hours): - 05/07/21 00:10 05/07/21 04:00 05/07/21 04:37 Temperature 98.0 F 98.9 F Pulse Rate 53 L 63 Respiratory Rate 14 17 Blood Pressure 109/64 108/65 Pulse Oximetry 93 98 98 Oxygen Delivery Method Nasal Cannula Oxygen Flow Rate 2 Narrative Exam Narrative: Resting comfortably in bed and in no acute distress. Objective Labs Result Diagrams: 05/07/21 05:09 05/07/21 05:09 Labs: Laboratory Results - last 24 hr 05/06/21 05/07/21 05/07/21 12:35 05:09 05:09 WBC 28.9 H 17.6 H RBC 4.13 3.97 L Hgb 10.7 L 10.2 L Hct 33.6 L 32.7 L MCV 81.5 82.4 MCH 25.9 L 25.8 L MCHC 31.8 31.3 RDW 19.6 H 19.7 H Plt Count 128 L 114 L Neut % (Auto) 93.6 H 88.5 H Lymph % (Auto) 1.8 L 6.4 L [place] % (Auto) 4.5 4.6 Eos % (Auto) 0.0 L 0.2 L Baso % (Auto) 0.1 0.3 Neut # (Auto) 47124 H 29373 H Lymph # (Auto) 500 L 1100 [place] # (Auto) 1300 H 800 Eos # (Auto) 0 0 Baso # (Auto) 0 0 Sodium 137 Potassium 3.4 Chloride 106 Carbon Dioxide 28 BUN 22 H Creatinine 0.77 Estimated GFR > 60.0 BUN/Creatinine Ratio 28.6 H Glucose 97 Calcium 8.6 Procalcitonin 05/07/21 05:09 WBC RBC Hgb Hct MCV MCH MCHC RDW Plt Count Neut % (Auto) Lymph % (Auto) [place] % (Auto) Eos % (Auto) Baso % (Auto) Neut # (Auto) Lymph # (Auto) [place] # (Auto) Eos # (Auto) Baso # (Auto) Sodium Potassium Chloride Carbon Dioxide BUN Creatinine Estimated GFR BUN/Creatinine Ratio Glucose Calcium Procalcitonin 11.9 H PFSH Medical History Anemia, unspecified Anxiety (~2012) Anxiety disorder Carpal tunnel syndrome (~2000) Chicken pox (~1987) Cloudy urine Depression (~2012) Headache (~2012) Hearing loss Heavy menstrual period (~2018) History of bipolar disorder (~2012) History of sterilization procedure Irregular menstrual cycle (~1987) Kidney damage Menorrhagia Migraine Migraines (~2012) Obesity (BMI 30-39.9) Painful menstrual periods (~2018) PTSD (post-traumatic stress disorder) (~2012) Restless leg syndrome (~2018) Scoliosis (~1997) Seasonal allergies Seizure (~1981) Smoker Surgical History Anesthesia H/O nephrolithotomy with removal of calculi History of ankle surgery (~2012) Hx of cholecystectomy (~2016) Family History Father Colon cancer Brother Mental health problem Grandmother Diabetes mellitus Mental health problem Dementia Social History household members: family Smoking Status: Current every day smoker Tobacco: How many years used: 24 quit status: quit date established (07/23/19 ) alcohol intake: current substance use type: former substance user and marijuana (former ) Assessment & Plan Assessment and plan (1) Left ureteral calculus: Status: Acute (2) Pyelonephritis: Status: Acute Plan: Assessment & Plan narrative: Assessment: 1. Clinically improved on current ceftriaxone and internal stenting for obstructing 4 mm left ureteral calculus 2 days ago. 2. E coli urosepsis. Final culture and sensitivity pending. Plan: 1. Follow up on final culture and sensitivities. 2. Ceftriaxone IV until final sensitivities available. 3. Future left ureteroscopic laser lithotripsy. Time Spent With Patient Critical Care time: I spent a total of [] minutes of critical care time on this patient's care today; this time is exclusive of procedural time.
[2021-05-07 07:50] VITALS: BP 123/76; PULSE 52; RESP 16; TEMP 36.6; O2SAT 93
[2021-05-07] MEDS: FLUoxetine 20 MG CAPSULE 40 MG PO (08:00)
[2021-05-07] MEDS: BELLADONNA/OPIUM SUPPOSITORIES 1 EACH PR (08:00)
[2021-05-07] MEDS: BUDESONIDE 0.5 MG/2 ML NEB INH (09:24)
[2021-05-07 09:26] VITALS: PULSE 52; RESP 16; O2SAT 95
--- NOTE | 2021-05-07 09:39 | P.PN_ITS ---
Subjective Subjective Date Patient Seen: 05/07/21 Time Patient Seen: 09:39 Interval history: In the interval urine culture final sensitivity is been reported. Upon my review of the record my previous order for Cipro 500 mg p.o. b.i.d. had been canceled/deleted by someone in the. Since transfer from OR recovery. Blood cultures are growing E coli as well and I presume it was the same sensitivity profile. Exam Vital Signs (past 8 hours): - 05/07/21 04:00 05/07/21 04:37 05/07/21 07:50 Temperature 98.9 F 97.9 F Pulse Rate 63 52 L Respiratory Rate 17 16 Blood Pressure 108/65 123/76 Pulse Oximetry 98 98 93 05/07/21 09:26 Temperature Pulse Rate 52 L Respiratory Rate 16 Blood Pressure Pulse Oximetry 995 H Oxygen Delivery Method Nasal Cannula Oxygen Flow Rate 2 Narrative Exam Narrative: Not repeated Objective Labs Result Diagrams: 05/07/21 05:09 05/07/21 05:09 Labs: Laboratory Results - last 24 hr 05/06/21 05/07/21 05/07/21 12:35 05:09 05:09 WBC 28.9 H 17.6 H RBC 4.13 3.97 L Hgb 10.7 L 10.2 L Hct 33.6 L 32.7 L MCV 81.5 82.4 MCH 25.9 L 25.8 L MCHC 31.8 31.3 RDW 19.6 H 19.7 H Plt Count 128 L 114 L Neut % (Auto) 93.6 H 88.5 H Lymph % (Auto) 1.8 L 6.4 L [place] % (Auto) 4.5 4.6 Eos % (Auto) 0.0 L 0.2 L Baso % (Auto) 0.1 0.3 Neut # (Auto) 79987 H 91847 H Lymph # (Auto) 500 L 1100 [place] # (Auto) 1300 H 800 Eos # (Auto) 0 0 Baso # (Auto) 0 0 Sodium 137 Potassium 3.4 Chloride 106 Carbon Dioxide 28 BUN 22 H Creatinine 0.77 Estimated GFR > 60.0 BUN/Creatinine Ratio 28.6 H Glucose 97 Calcium 8.6 Procalcitonin 05/07/21 05:09 WBC RBC Hgb Hct MCV MCH MCHC RDW Plt Count Neut % (Auto) Lymph % (Auto) [place] % (Auto) Eos % (Auto) Baso % (Auto) Neut # (Auto) Lymph # (Auto) [place] # (Auto) Eos # (Auto) Baso # (Auto) Sodium Potassium Chloride Carbon Dioxide BUN Creatinine Estimated GFR BUN/Creatinine Ratio Glucose Calcium Procalcitonin 11.9 H PFSH Medical History Anemia, unspecified Anxiety (~2012) Anxiety disorder Carpal tunnel syndrome (~2000) Chicken pox (~1987) Cloudy urine Depression (~2012) Headache (~2012) Hearing loss Heavy menstrual period (~2018) History of bipolar disorder (~2012) History of sterilization procedure Irregular menstrual cycle (~1987) Kidney damage Menorrhagia Migraine Migraines (~2012) Obesity (BMI 30-39.9) Painful menstrual periods (~2018) PTSD (post-traumatic stress disorder) (~2012) Restless leg syndrome (~2018) Scoliosis (~1997) Seasonal allergies Seizure (~1981) Smoker Surgical History Anesthesia H/O nephrolithotomy with removal of calculi History of ankle surgery (~2012) Hx of cholecystectomy (~2016) Family History Father Colon cancer Brother Mental health problem Grandmother Diabetes mellitus Mental health problem Dementia Social History household members: family Smoking Status: Current every day smoker Tobacco: How many years used: 24 quit status: quit date established (07/23/19 ) alcohol intake: current substance use type: former substance user and marijuana (former ) Assessment & Plan Assessment and plan (1) Left ureteral calculus: Status: Acute (2) Pyelonephritis: Status: Acute Assessment & Plan narrative: Assessment: 1. E coli urosepsis. 2. 4 mm left distal ureteral calculus. 3. Indwelling left ureteral stent. 4. Interval discontinuation of my previous order for ciprofloxacin since operative intervention. Plan: 1. Rx ciprofloxacin 500 mg p.o. b.i.d.. 2. Anticipate discharge later this day. 3. Follow-up in Urology Clinic as previously indicated and future definitive left ureteroscopic laser lithotripsy. Time Spent With Patient Critical Care time: I spent a total of [] minutes of critical care time on this patient's care today; this time is exclusive of procedural time.
[2021-05-07 12:00] VITALS: BP 106/56; PULSE 54; RESP 16; TEMP 36.6; O2SAT 92
--- NOTE | 2021-05-07 12:52 | PM.DS.1 ---
History of Present Illness History of Present Illness Date Patient Seen: 05/07/21 Time Patient Seen: 12:52 Chief complaint: L side pain abd and back Narrative: The patient is a 40-year-old female experiencing her usual health until about 3:00 a.m. earlier this day she awakened having left sided flank abdominal pain. She presented to [facility] ED for evaluation. CT KUB demonstrates a an obstructing 4 mm distal left ureteral calculus. White blood cell count on presentation was 15.5 with left shift. Urinalysis showed many bacteria and only 1-5 squamous epithelial cells. The specimen is since been sent for culture. Clinical course in the emergency department is significant for clinical deterioration and fever spike over the last 1 hour. Discharge Providers Provider Date of admission: 05/05/21 16:06 Discharge Date: 05/07/21 Primary care physician: GERALD White Discharge provider: Nicky Gonsalez MD Summary Hospital Course Discharge Diagnosis: 1. E coli urosepsis 2. Obstructing 4 mm left distal ureteral calculus Hospital Course: Patient presented to [facility] ED on the afternoon of 05/05/2021 with complaint of severe left flank pain, malaise and fatigue. ED evaluation was consistent with UTI/pyelonephritis as well as an obstructing 4 mm left distal ureteral calculus. Her clinical condition evolved and deteriorated, urologic consultation was requested, and she was taken urgently to the operating room for cystoscopy and placement left ureteral stent. Urine and blood cultures grew E coli with multiple resistances. She responded clinically to intravenous ceftriaxone and IV fluid hydration. She remained hemodynamically stable throughout her hospital admission. On the afternoon of 05/07/2021 she was stable for discharge. Exam Vital Signs (past 8 hours): - 05/07/21 07:50 05/07/21 09:26 05/07/21 12:00 Temperature 97.9 F 97.8 F Pulse Rate 52 L 52 L 54 L Respiratory Rate 16 16 16 Blood Pressure 123/76 106/56 L Pulse Oximetry 93 95 92 Oxygen Delivery Method Room Air Oxygen Flow Rate 0 Narrative Exam Narrative: She is sitting upright in bed appearing somewhat fatigued but in no acute distress. She is eating lunch vigorously. Objective Labs Result Diagrams: 05/07/21 05:09 05/07/21 05:09 Labs: Laboratory Results - last 24 hr 05/06/21 05/07/21 05/07/21 12:35 05:09 05:09 WBC 28.9 H 17.6 H RBC 4.13 3.97 L Hgb 10.7 L 10.2 L Hct 33.6 L 32.7 L MCV 81.5 82.4 MCH 25.9 L 25.8 L MCHC 31.8 31.3 RDW 19.6 H 19.7 H Plt Count 128 L 114 L Neut % (Auto) 93.6 H 88.5 H Lymph % (Auto) 1.8 L 6.4 L [place] % (Auto) 4.5 4.6 Eos % (Auto) 0.0 L 0.2 L Baso % (Auto) 0.1 0.3 Neut # (Auto) 15475 H 37390 H Lymph # (Auto) 500 L 1100 [place] # (Auto) 1300 H 800 Eos # (Auto) 0 0 Baso # (Auto) 0 0 Sodium 137 Potassium 3.4 Chloride 106 Carbon Dioxide 28 BUN 22 H Creatinine 0.77 Estimated GFR > 60.0 BUN/Creatinine Ratio 28.6 H Glucose 97 Calcium 8.6 Procalcitonin 05/07/21 05:09 WBC RBC Hgb Hct MCV MCH MCHC RDW Plt Count Neut % (Auto) Lymph % (Auto) [place] % (Auto) Eos % (Auto) Baso % (Auto) Neut # (Auto) Lymph # (Auto) [place] # (Auto) Eos # (Auto) Baso # (Auto) Sodium Potassium Chloride Carbon Dioxide BUN Creatinine Estimated GFR BUN/Creatinine Ratio Glucose Calcium Procalcitonin 11.9 H PFSH Medical History Anemia, unspecified Anxiety (~2012) Anxiety disorder Carpal tunnel syndrome (~2000) Chicken pox (~1987) Cloudy urine Depression (~2012) Headache (~2012) Hearing loss Heavy menstrual period (~2018) History of bipolar disorder (~2012) History of sterilization procedure Irregular menstrual cycle (~1987) Kidney damage Menorrhagia Migraine Migraines (~2012) Obesity (BMI 30-39.9) Painful menstrual periods (~2018) PTSD (post-traumatic stress disorder) (~2012) Restless leg syndrome (~2018) Scoliosis (~1997) Seasonal allergies Seizure (~1981) Smoker Surgical History Anesthesia H/O nephrolithotomy with removal of calculi History of ankle surgery (~2012) Hx of cholecystectomy (~2017) Family History Father Colon cancer Brother Mental health problem Grandmother Diabetes mellitus Mental health problem Dementia Social History household members: family Smoking Status: Current every day smoker Tobacco: How many years used: 24 quit status: quit date established (07/23/19 ) alcohol intake: current substance use type: former substance user and marijuana (former ) Discharge Assessment & Plan Assessment and Plan Assessment: 1. Clinically improved-E coli urosepsis/left pyelonephritis 2. 4 mm left distal ureteral calculus 3. Indwelling left ureteral stent Plan of Treatment: 1. Discharge home today. 2. Rx for ciprofloxacin and oxycodone. Common side effects, precautions, and intake instructions explained. 3. Will schedule follow-up outpatient visit in the Urology Clinic for preop and scheduling for future left ureteroscopic laser lithotripsy. Discharge Plan Discharge Plan Patient Disposition: Home Provider Discharge Comment: 1. Contact Urology Clinic 05/08/2021 to schedule outpatient follow-up visit. 2. Contact PCP schedule follow-up visit and discussion regarding possible sleep study. Discharge orders & Medications Prescriptions: New oxycodone 5 mg tablet 5 mg PO Q4H PRN (Reason: pain) Qty: 20 RF: 0 ciprofloxacin HCl 500 mg tablet 500 mg PO BID Qty: 45 RF: 0 Continued fluoxetine 20 mg capsule 40 mg PO DAILY 30 Days Qty: 60 RF: 2 albuterol sulfate 90 mcg/actuation aerosol powdr breath activated 1 inhalation INHALATION Q4-6H PRN (Reason: Shortness Of Breath) RF: 0 sumatriptan succinate 100 mg tablet 100 mg PO PRN PRN (Reason: migranes) RF: 0 Pulmicort Flexhaler 180 mcg/actuation Aerosol Powdr Breath Activated 1 inh INHALATION DAILY RF: 0 Follow up/Referrals: Anna Smith ARNP [Primary Care Provider] - Diet/Activity/Treatments Diet: Diet as Tolerated Activity: Unrestricted. Cold/Heat Therapy: May use warm pad or heating pad on left flank as needed. Other treatments: Take Tylenol 325-500 mg Q 4-6 hours on schedule for next 3 days. Skin/Wound/Dressing Care Report to your healthcare provider any signs of infection, such as:: chills, fever, night sweats and increased pain Visit Report/Discharge Packet Instructions: DI for Cystoscopy, DI for Prescription Opioid Use Stand Alone Forms: Surgery Discharge Discharge Data Primary Care Provider: Anna Smith
--- NOTE | 2021-05-07 13:58 | CM.DPC ---
DCP Discharge Home Per Urologist, cultures returned and pt can d/c on oral abx and medically stable to d/c home today with no identified barriers to discharge. Per RN, still no concerns. Plan: Patient to d/c home today via family POV and no SW needs at this time. HAILEE Echols
--- NOTE | 2021-05-07 14:04 | PM.PN.1 ---
Subjective Subjective Date Patient Seen: 05/07/21 Time Patient Seen: 08:00 Interval history: Today she is feeling improved. She has pain that is well controlled. No fevers/chills. Her white count improved significantly Exam Vital Signs (past 8 hours): - 05/07/21 07:50 05/07/21 09:26 05/07/21 12:00 Temperature 97.9 F 97.8 F Pulse Rate 52 L 52 L 54 L Respiratory Rate 16 16 16 Blood Pressure 123/76 106/56 L Pulse Oximetry 93 95 92 Oxygen Delivery Method Room Air Oxygen Flow Rate 0 Narrative Exam Narrative: GEN: no acute distress CV: regular rate and rhythm, with no murmurs PULM: clear bilaterally, no wheezes, rhonchi, rales ABD: soft, mild diffuse tenderness NEURO: awake and alert, no focal deficit Objective Labs Result Diagrams: 05/07/21 05:09 05/07/21 05:09 Labs: Laboratory Results - last 24 hr 05/07/21 05/07/21 05/07/21 05:09 05:09 05:09 WBC 17.6 H RBC 3.97 L Hgb 10.2 L Hct 32.7 L MCV 82.4 MCH 25.8 L MCHC 31.3 RDW 19.7 H Plt Count 114 L Neut % (Auto) 88.5 H Lymph % (Auto) 6.4 L Atkinson % (Auto) 4.6 Eos % (Auto) 0.2 L Baso % (Auto) 0.3 Neut # (Auto) 78314 H Lymph # (Auto) 1100 Atkinson # (Auto) 800 Eos # (Auto) 0 Baso # (Auto) 0 Sodium 137 Potassium 3.4 Chloride 106 Carbon Dioxide 28 BUN 22 H Creatinine 0.77 Estimated GFR > 60.0 BUN/Creatinine Ratio 28.6 H Glucose 97 Calcium 8.6 Procalcitonin 11.9 H PFSH Medical History Anemia, unspecified Anxiety (~2012) Anxiety disorder Carpal tunnel syndrome (~2000) Chicken pox (~1987) Cloudy urine Depression (~2012) Headache (~2012) Hearing loss Heavy menstrual period (~2018) History of bipolar disorder (~2012) History of sterilization procedure Irregular menstrual cycle (~1987) Kidney damage Menorrhagia Migraine Migraines (~2012) Obesity (BMI 30-39.9) Painful menstrual periods (~2018) PTSD (post-traumatic stress disorder) (~2012) Restless leg syndrome (~2018) Scoliosis (~1997) Seasonal allergies Seizure (~1981) Smoker Surgical History Anesthesia H/O nephrolithotomy with removal of calculi History of ankle surgery (~2012) Hx of cholecystectomy (~2016) Family History Father Colon cancer Brother Mental health problem Grandmother Diabetes mellitus Mental health problem Dementia Social History household members: family Smoking Status: Current every day smoker Tobacco: How many years used: 24 quit status: quit date established (07/23/19 ) alcohol intake: current substance use type: former substance user and marijuana (former ) Assessment & Plan Assessment & Plan narrative: Ms. Best is a 40W admitted with ureteral stone complicated by Ecoli bacteremia/pyelonephritis/UTI 1. Ureteral stone complicated by pyelonephritis and E. coli bacteremia -WBC improved from 28.9 to 17 -sensis back to E. coli -per urology, will dc with ciprofloxacin and follow up as outpatient 2. Bipolar Affective disorder -continue divalproex daily -need to verify if she is really on prozac, if so continue 3. Anxiety -continue usual home medications 4. HOOKS -continue imitrex 5. Probable COPD -continue albuterol/budesonide 6. Nicotine dependence -patient counselled on smoking cessation -nicotine replacement offered, which she denied Time Spent With Patient Critical Care time: I spent a total of [] minutes of critical care time on this patient's care today; this time is exclusive of procedural time.
== END 2021-05-07 14:00 | disposition home or self-care (01) | DRG 710 ==
LOC: ED 16:05 → AC 16:07
PROVIDERS: Internal Medicine; Admitting Provider Specialist; Emergency Provider Emergency Medicine; PCP Registered Nurse; Referring Provider Emergency Medicine; Visit Provider Specialist
PROC: 0T9180Z Drainage of Left Kidney with Drainage Device, Via Natural or Artificial Opening Endoscopic (ICD-10-PCS; principal; 2021-05-05 15:30)
DX: A41.51 Sepsis due to Escherichia coli [E. coli] (principal); N10 Acute pyelonephritis; N20.1 Calculus of ureter; F31.9 Bipolar disorder, unspecified; F41.9 Anxiety disorder, unspecified; G43.909 Migraine, unspecified, not intractable, without status migrainosus; Z20.822 Contact with and (suspected) exposure to COVID-19; R65.20 Severe sepsis without septic shock; D69.59 Other secondary thrombocytopenia; I95.9 Hypotension, unspecified
CPT/HCPCS: 36415; 52352; 74177; 80048; 80053; 81001; 83605; 83690; 84145; 85025; 87040; 87077; 87086; 87150; 87186; 87205; 87635; 94150; 94640; 94762; 96361; 96365; 96375; 96376; 99222; 99238; 99284; C9803; J0295; J0696; J1100; J1170; J1885; J2405; J2704; J3010; J7613; Q9967

== ENCOUNTER 2021-05-07 19:04 | Emergency (ER) | payer OTHER, MEDICAID, SELFPAY ==
[2021-05-05 18:37] VITALS: BMI 31.5
[2021-05-07 19:19] VITALS: BP 161/84; PULSE 60; RESP 16; TEMP 37; O2SAT 98; BMI 31.8
--- NOTE | 2021-05-07 20:14 | PC.NURSE ---
Called [facility] to verify med shortage, [facility] only had [address] Cruz who was independent consultant for Dr Rose and he verified [facility] had plenty. 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 Pt agreeable with plan. Aware she is able to return to ER if she feels the need. Pt left at this time to pickle water pump operator script.
== END 2021-05-07 20:19 | disposition left against medical advice (07) ==
PROVIDERS: Emergency Provider Emergency Medicine; PCP Registered Nurse
DX: R50.9 Fever, unspecified (principal)
CPT/HCPCS: 99281

== ENCOUNTER → 2021-05-12 15:54 | Outpatient (CLI) | payer OTHER, MEDICAID, SELFPAY ==
[2021-05-08 13:16] VITALS: BMI 31.5
--- NOTE | 2021-05-12 15:56 | DI.RAD.S_ITS ---
PROCEDURE: XR KUB INDICATIONS: ureteral calculus TECHNIQUE: One view of the abdomen acquired. COMPARISON: [facility], CT, CT ABDOMEN PELVIS W CON, 05/05/2021, 13:59. FINDINGS: Surgical changes and devices: Cholecystectomy clips. Left ureteral stent has been placed. Bowel: Bowel gas pattern is normal. Soft tissues: No suspicious abdominal calcifications. Visualized solid organ contours appear normal in size. Bones: No suspicious bony lesions. IMPRESSION: Interval placement of left ureteral stent. Dictated by: Roverto OAKES Interpreted: Ana Whaley MD on 05/12/2021 at 16:15 Transcribed by: MACARENA on 05/12/2021 at 16:15 Approved by: Ana Whaley M.D. on 05/12/2021 at 16:23
== END ==
PROVIDERS: PCP Registered Nurse; Referring Provider Specialist; Visit Provider Specialist
DX: N12 Tubulo-interstitial nephritis, not specified as acute or chronic (principal); N20.1 Calculus of ureter; Z96.0 Presence of urogenital implants
CPT/HCPCS: 74018

== ENCOUNTER → 2021-05-26 11:28 | Outpatient (CLI) | payer OTHER, MEDICAID, SELFPAY ==
[2021-05-08 13:16] VITALS: BMI 31.5
[2021-05-26 11:41] LABS: Appearance Urine UA CLOUDY; Bilirubin Urine UA NEGATIVE (NEGATIVE); Color Urine UA RED; Glucose Urine UA NEGATIVE (Negative); Ketones Urine UA NEGATIVE (NEGATIVE); Leukocyte Esterase Urine UA 1+ (NEGATIVE); Nitrite Urine UA NEGATIVE (Negative); Occult Blood Urine UA 3+ (Negative); Protein Urine UA 2+ (Negative); Urobilinogen Urine UA 0.2 E.U./dL (0.2); pH Urine UA 7.5 (4.5-8.0)
[2021-05-26 11:48] LABS: Culture Indicated Urine Specimen Cultured; RBC Urine 30-100/HPF (0-5/HPF); Squamous Epithelial Cell Urine 1-5 /HPF (0-5/HPF); WBC Urine 5-10/HPF (0-5/HPF)
[2021-05-26 11:49] LABS: Bacteria Urine None Seen
== END ==
PROVIDERS: PCP Registered Nurse; Referring Provider Specialist; Visit Provider Specialist
DX: R30.0 Dysuria (principal); N20.1 Calculus of ureter; Z86.19 Personal history of other infectious and parasitic diseases; Z87.440 Personal history of urinary (tract) infections
CPT/HCPCS: 81001; 87086; 99215

== ENCOUNTER → 2021-06-02 16:29 | Outpatient (CLI) | payer OTHER, MEDICAID, SELFPAY ==
[2021-05-26 13:36] VITALS: BMI 31.5
[2021-06-02 17:00] LABS: COVID19 -Nasal RAPID Negative (Negative)
== END ==
PROVIDERS: PCP Registered Nurse; Referring Provider Specialist; Visit Provider Specialist
DX: Z20.822 Contact with and (suspected) exposure to COVID-19 (principal)
CPT/HCPCS: 87635; C9803

== ENCOUNTER 2021-06-05 11:57 | Day surgery (SDC) | payer OTHER, MEDICAID, SELFPAY ==
[2021-05-26 13:36] VITALS: BMI 31.5
[2021-05-29 09:53] VITALS: BMI 30.2
[2021-06-05] VITALS (9 sets, daily range): BP systolic 107–140; BP diastolic 49–89; PULSE 46–114; RESP 14–20; TEMP 36.2–36.6; O2SAT 93–99; BMI 30.2
[2021-06-05] MEDS: LACTATED RINGERS 1,000 ML 42 ML IV (13:08)
--- NOTE | 2021-06-05 13:41 | SUR.OPER ---
Lithotomy on padded OR bed, head on pillow, arms secured on padded arm boards at <90 degrees abduction. Legs secured in padded yellow fins stirrups.
[2021-06-05] MEDS: CEFAZOLIN 2 GM/20 ML SYRINGE IV (14:12)
--- NOTE | 2021-06-05 14:15 | PM.PREOP ---
Pre-operative Note Interval Note History & Physical reviewed/Exam performed by Physician: Yes Changes to H&P: No
[2021-06-05] MEDS: BELLADONNA/OPIUM SUPPOSITORIES 1 EACH PR (14:37)
--- NOTE | 2021-06-05 14:47 | P.OP_ITS ---
Operative Date/Time/Diagnoses Date of procedure: 06/05/21 Time of procedure: 14:47 Pre-op diagnosis: 1. History of obstructing left distal ureteral calculus. 2. History of left pyelonephritis/sepsis. 3. Retained left ureteral stent Post-op diagnosis: same Procedure & Clinicians Procedure: 1. Cystoscopy/left ureteral stent removal. 2. Left ureteroscopy. Same procedure as scheduled: No (No stone identified, recovered.) Indications: 1. History of obstructing left distal ureteral calculus. 2. History of left pyelonephritis/urosepsis. 3. Retained left ureteral stent Surgeon: Nicky Gonsalez Click Yes if Unassisted: Yes Anesthesia Type: General Operative Notes Findings: 1. Urethra-normal caliber and location. 2. Bladder-trace trabeculation. Normal right ureteral orifice. The left ureteral orifice as indwelling stent and surrounding edema and erythema. No evidence of stone, or clot in the bladder for. Closure Type: not applicable Specimen(s): none sent Estimated Blood Loss (mL): 0 Blood products transfused: none Procedure in detail: The patient was positioned in supine and was administered general anesthesia. She was then repositioned semi lithotomy and the lower abdomen, genitalia, and groin were then prepped and draped in sterile fashion. A 22 [place] panendoscope was then passed lower urinary tract with the findings as described above. An alligator tooth foreign body grasper was then passed through the working channel of the panendoscope and the distal tip of ureteral stent was engaged and then withdrawn to a length just be on the perineum. Now, a 0.35 hybrid guidewire was advanced through the lumen of the ureteral stent advanced proximally under direct and fluoroscopic guidance. The existing stent was then backloaded off the hybrid guidewire and discarded. Next, the semi rigid ureteral scope was repaired and advanced into the lower urinary tract and then into the left ureteral orifice under direct visualization. Was then advanced proximally again under direct visualization to the level of the left ureteropelvic junction. No stone was seen along the way and the mucosa was undisturbed. Careful withdrawal of the ureteral scope with a 2nd look examination failed to reveal the index calculus, urothelial lesion or disruption, or clot. Ureteral scope was then removed in its entirety. The panendoscope was then reintroduced into the bladder and careful inspection failed the reveal a stone residing in the dependent part of bladder base. It is presumed, and likely plausible, that the index calculus was of a struvite composition and crumbled upon recent placement of left ureteral stent or subsequently with increased patient activity and has since passed all residual particles and fragments. The bladder was then drained completely and all instrumentation removed. Melisa mcgrath was then repositioned in supine, was awakened, transferred to a gurney and then transported to recovery in stable condition. Complications: none Post-operative Condition: stable Disposition: PACU Plan for aftercare: Discharge home
[2021-06-05] MEDS: MEPERIDINE 50 MG/ML INJ 12.5 MG IM (15:01)
--- NOTE | 2021-06-05 16:18 | SUR.PHASEII ---
Discharge: awake and alert. vss. no complaints of pain or nausea. iv out.dressed self. Home care instructions completed. copies to patient . Ride called. Discharged home by car with all belongings and paperwork to s/o [facility] at 1615. Aware to pick up attendant RX at [facility].
== END 2021-06-05 16:15 | disposition home or self-care (01) ==
PROVIDERS: PCP Registered Nurse; Referring Provider Specialist; Visit Provider Specialist
PROC: (CPT 52310; principal; 2021-06-05 13:45)
DX: Z87.442 Personal history of urinary calculi (principal); Z96.0 Presence of urogenital implants
CPT/HCPCS: 52310; 76000; J0690; J1100; J2175; J2250; J2405; J2704; J3010